=== PATIENT | female | born 1955 | race Caucasian/White ===

== ENCOUNTER 2017-12-07 09:00 | Outpatient (RCR) | payer OTHER, SELFPAY ==
--- NOTE | 2017-10-19 11:54 | PT.OTN ---
Current Diagnoses Pain in left knee (10/19/17) Trochanteric bursitis, left hip (10/19/17) Transition note: On October 18, 2017 our therapy services consisting of Speech, Occupational, and Physical Therapy transitioned from the [employer] electronic documentation system to a new [employer] electronic documentation system.?? All documentation prior to October 18 can be found under [employer] saved data. From October 18 forward all medical record documentation will be in [employer] 6.1.
--- NOTE | 2017-10-19 16:15 | PT.OTN ---
Current Diagnoses Pain in left knee (10/19/17) Trochanteric bursitis, left hip (10/19/17) Physical Therapy Treatment Note PT-OP-A Visit Information Start: 10/19/17 08:13 Freq: Status: Active Protocol: Activity Type Activity Date Activity User E-Sign Co-Sign Detail Recorded Client Recorded Date Recorded By Document 10/19/17 13:50 [place] [id number] 10/19/17 16:15 [facility] 10/19/17 13:50 Out-Patient Physical Therapy Visit Information [Visit Information] -Visit Type Treatment Note -Visit Note POC expires 06/06 -Visit Start Time 13:50 -Visit Stop Time 14:30 -Total Visit Minutes 55 PT-OP-C Subjective Start: 10/19/17 08:13 Freq: Status: Active Protocol: Activity Type Activity Date Activity User E-Sign Co-Sign Detail Recorded Client Recorded Date Recorded By Document 10/19/17 16:02 [facility] [email or web address] 10/19/17 16:13 [facility] 10/19/17 16:02 OP-PT Subjective [Patient Comments] -Patient Comments Reports improvement slightly. Has been working a lot. Extended time in car is painful. PT-OP-F Manual Assessment Start: 10/19/17 08:13 Freq: Status: Active Protocol: Activity Type Activity Date Activity User E-Sign Co-Sign Detail Recorded Client Recorded Date Recorded By Document 10/19/17 16:02 [facility] [email or web address] 10/19/17 16:13 [facility] 10/19/17 16:02 Manual Assessments [Other Manual Assessments] -Other Manual Assessments R iliac crest elevated & innominate posterior PT-OP-Q Treatments Start: 10/19/17 08:13 Freq: Status: Active Protocol: Activity Type Activity Date Activity User E-Sign Co-Sign Detail Recorded Client Recorded Date Recorded By Document 10/19/17 16:02 [facility] [email or web address] 10/19/17 16:13 [facility] 10/19/17 16:02 Therapeutic Exercises [Supine Exercises] 3 -Supine Exercise Name bicycle -Side bilateral 2 -Supine Exercise Name HS stretch -Side left 1 -Supine Exercise Name abraham test stretch -Side bilateral Therapeutic Activity [Therapeutic Activity] 1 -Name seated posture training & edu on positioning for car -Comments use of towel behind back & under L leg Manual Therapy Treatment [Soft Tissue Mobilization] 1 -Body Location QL -Mobilization Type Rolling -Intensity/Depth Moderate -Body Position Prone [Joint Mobilizations] 2 -Joint Innominate -Direction ER & caudal R -Grade III -Body Position Prone -Comments FM w/knee flex & trunk rotation 1 -Joint sacrum -Direction PA & caudal gliding -Grade III -Body Position Prone -Comments FM with knee flex & trunk rotation PT-OP-R Modalities Start: 10/19/17 08:13 Freq: Status: Active Protocol: Activity Type Activity Date Activity User E-Sign Co-Sign Detail Recorded Client Recorded Date Recorded By Document 10/19/17 13:50 [facility] [id number] 10/19/17 16:15 [facility] 10/19/17 13:50 Hot Pack/Cold Pack [Treatment] Cold Pack -Location L knee -Patient Position Hooklying -Treatment Duration (minutes) 15 Hot Pack -Location lumbar -Patient Position Hooklying -Treatment Duration (minutes) 15 PT-OP-T Assessment and Plan Start: 10/19/17 08:13 Freq: Status: Active Protocol: Activity Type Activity Date Activity User E-Sign Co-Sign Detail Recorded Client Recorded Date Recorded By Document 10/19/17 16:02 [facility] [id number] 10/19/17 16:13 [facility] 10/19/17 16:02 Physical Therapy Assessment [Assessment Summary] -Assessment Pt has significant tightness in hip/knee mm of LLE. Pt has difficulty in positioning in car d/t low height of seat. Pt cont to be rotated & elevated on R side. Physical Therapy Plan [Next Visit Focus/Plan] -Next Visit Plan Advance core stability
--- NOTE | 2017-10-21 16:07 | PT.OTN ---
Current Diagnoses Pain in left knee (10/21/17) Trochanteric bursitis, left hip (10/21/17) Physical Therapy Treatment Note PT-OP-A Visit Information Start: 10/19/17 08:13 Freq: Status: Active Protocol: Activity Type Activity Date Activity User E-Sign Co-Sign Detail Recorded Client Recorded Date Recorded By Document 10/21/17 15:54 [facility] [email or web address] 10/21/17 16:01 [facility] 10/21/17 15:54 Out-Patient Physical Therapy Visit Information [Visit Information] -Visit Type Treatment Note -Visit Note POC expires 06/06 -Visit Start Time 13:45 -Visit Stop Time 14:40 -Total Visit Minutes 55 PT-OP-C Subjective Start: 10/19/17 08:13 Freq: Status: Active Protocol: Activity Type Activity Date Activity User E-Sign Co-Sign Detail Recorded Client Recorded Date Recorded By Document 10/21/17 15:54 [facility] [email or web address] 10/21/17 16:01 [facility] 10/21/17 15:54 OP-PT Subjective [Patient Comments] -Patient Comments Reports she goes to her primary MD today. PT-OP-F Manual Assessment Start: 10/19/17 08:13 Freq: Status: Active Protocol: Activity Type Activity Date Activity User E-Sign Co-Sign Detail Recorded Client Recorded Date Recorded By Document 10/21/17 16:02 [facility] [email or web address] 10/21/17 16:06 [facility] 10/21/17 16:02 Manual Assessments [Other Manual Assessments] -Other Manual Assessments R pelvis elevated and ant rotated. PT-OP-Q Treatments Start: 10/19/17 08:13 Freq: Status: Active Protocol: Activity Type Activity Date Activity User E-Sign Co-Sign Detail Recorded Client Recorded Date Recorded By Document 10/21/17 16:02 [facility] [id number] 10/21/17 16:06 [facility] 10/21/17 16:02 Therapeutic Exercises [Supine Exercises] 4 -Supine Exercise Name bridge -Comments attempted alt knee lift but painful 2 -Supine Exercise Name HS stretch -Side left 1 -Supine Exercise Name abraham test stretch -Side bilateral [Standing Exercises] 1 -Standing Exercise Name calf stretch [Other Exercises] 1 -Other Exercise Name quadruped hip ext -Side bilateral -Comments stopped d/t knee clicking & poor form Manual Therapy Treatment [Soft Tissue Mobilization] 3 -Body Location HS L -Mobilization Type Rolling -Intensity/Depth Moderate -Body Position Sidelying 2 -Body Location gluteals L -Mobilization Type Rolling -Intensity/Depth Moderate -Body Position Sidelying [Joint Mobilizations] 3 -Joint patella -Direction sup, inf, med -Grade III -Body Position Sitting 2 -Joint Innominate -Direction caudal R -Grade III -Body Position Sidelying PT-OP-R Modalities Start: 10/19/17 08:13 Freq: Status: Active Protocol: Activity Type Activity Date Activity User E-Sign Co-Sign Detail Recorded Client Recorded Date Recorded By Document 10/21/17 16:02 [facility] [email or web address] 10/21/17 16:06 [facility] 10/21/17 16:02 Hot Pack/Cold Pack [Treatment] Cold Pack -Location B knee -Patient Position Hooklying -Treatment Duration (minutes) 15 Hot Pack -Location lumbar -Patient Position Hooklying -Treatment Duration (minutes) 15 PT-OP-T Assessment and Plan Start: 10/19/17 08:13 Freq: Status: Active Protocol: Activity Type Activity Date Activity User E-Sign Co-Sign Detail Recorded Client Recorded Date Recorded By Document 10/21/17 15:54 [facility] [id number] 10/21/17 16:01 [facility] 10/21/17 15:54 Physical Therapy Assessment [Assessment Summary] -Assessment While rolling to abdomen, pt' s R knee locked into ext. Pt reports that this happens occasionally for no reason with B knees. Unable to flex pt's knee until worked on patellar glides then a hard bump was palpable & with pressure disapeared. Pain subsided after & pt able to flex again. Overall, pt had inc tightness on L hip/knee mm. Physical Therapy Plan [Frequency and Duration] -Frequency of Treatment 2x/Week -Plan of Care End Date 11/29/17 [Next Visit Focus/Plan] -Next Visit Plan Advance core stability & quad strength; wall squats
--- NOTE | 2017-10-24 09:07 | PT.OTN ---
Current Diagnoses Pain in left knee (10/24/17) Trochanteric bursitis, left hip (10/24/17) Physical Therapy Treatment Note PT-OP-A Visit Information Start: 10/19/17 08:13 Freq: Status: Active Protocol: Activity Type Activity Date Activity User E-Sign Co-Sign Detail Recorded Client Recorded Date Recorded By Document 10/24/17 08:20 [facility] [id number] 10/24/17 09:07 [facility] 10/24/17 08:20 Out-Patient Physical Therapy Visit Information [Visit Information] -Visit Type Treatment Note -Visit Start Time 08:25 -Visit Stop Time 09:15 -Total Visit Minutes 50 -Number of LAB SYSTEMS ANALYST Visits 0 PT-OP-C Subjective Start: 10/19/17 08:13 Freq: Status: Active Protocol: Activity Type Activity Date Activity User E-Sign Co-Sign Detail Recorded Client Recorded Date Recorded By Document 10/24/17 08:20 [facility] [id number] 10/24/17 09:07 [facility] 10/24/17 08:20 OP-PT Subjective [Patient Comments] -Patient Comments Pt reports she was rushing to leave and slipped on her wood floors when going around her corner. Notes r SIDE IS SORE NOW TODAY. Reports MD gave her gabapentin to start for nerve pain. PT-OP-F Manual Assessment Start: 10/19/17 08:13 Freq: Status: Active Protocol: Activity Type Activity Date Activity User E-Sign Co-Sign Detail Recorded Client Recorded Date Recorded By Document 10/21/17 16:02 [facility] [email or web address] 10/21/17 16:06 [facility] 10/21/17 16:02 Manual Assessments [Other Manual Assessments] -Other Manual Assessments R pelvis elevated and ant rotated. PT-OP-Q Treatments Start: 10/19/17 08:13 Freq: Status: Active Protocol: Activity Type Activity Date Activity User E-Sign Co-Sign Detail Recorded Client Recorded Date Recorded By Document 10/24/17 08:20 [facility] [id number] 10/24/17 09:07 [facility] 10/24/17 08:20 Therapeutic Exercises [Sidelying Exercises] 1 -Sidelying Exercise Name abd vs wall [Standing Exercises] 2 -Standing Exercise Name wall squats Therapeutic Activity [Therapeutic Activity] 2 -Name lifting mechanics Manual Therapy Treatment [Soft Tissue Mobilization] 2 -Body Location gluteals L -Mobilization Type Rolling -Intensity/Depth Moderate -Body Position Prone 1 -Body Location QL -Mobilization Type Rolling -Intensity/Depth Moderate -Body Position Prone [Joint Mobilizations] 2 -Joint Innominate -Direction caudal R -Grade III -Body Position Prone 1 -Joint sacrum -Direction PA & caudal gliding -Grade III -Body Position Prone -Comments FM with knee flex & trunk rotation PT-OP-R Modalities Start: 10/19/17 08:13 Freq: Status: Active Protocol: Activity Type Activity Date Activity User E-Sign Co-Sign Detail Recorded Client Recorded Date Recorded By Document 10/24/17 08:20 [facility] [id number] 10/24/17 09:07 [facility] 10/24/17 08:20 Hot Pack/Cold Pack [Treatment] Cold Pack -Location B knee -Patient Position Hooklying -Treatment Duration (minutes) 15 Hot Pack -Location lumbar -Patient Position Hooklying -Treatment Duration (minutes) 15 PT-OP-T Assessment and Plan Start: 10/19/17 08:13 Freq: Status: Active Protocol: Activity Type Activity Date Activity User E-Sign Co-Sign Detail Recorded Client Recorded Date Recorded By Document 10/24/17 08:20 [facility] [id number] 10/24/17 09:07 [facility] 10/24/17 08:20 Physical Therapy Assessment [Assessment Summary] -Assessment Pt had inc tenderness along R gluteals & QL today and improved mobility with soft tissue mobilization. Pt encouraged to ice today. Physical Therapy Plan [Frequency and Duration] -Frequency of Treatment 2x/Week -Plan of Care End Date 11/29/17 [Next Visit Focus/Plan] -Next Visit Plan Advance glute & quad strength
--- NOTE | 2017-10-27 09:03 | PT.OTN ---
Current Diagnoses Pain in left knee (10/27/17) Trochanteric bursitis, left hip (10/27/17) Physical Therapy Treatment Note PT-OP-A Visit Information Start: 10/19/17 08:13 Freq: Status: Active Protocol: Document 10/27/17 08:13 [facility] (Rec: 10/27/17 09:03 [facility] [id number]) Out-Patient Physical Therapy Visit Information Visit Information Visit Type Treatment Note Visit Start Time 08:20 Visit Stop Time 09:15 Total Visit Minutes 55 Number of FLAKE DRIER Visits 0 PT-OP-C Subjective Start: 10/19/17 08:13 Freq: Status: Active Protocol: Document 10/27/17 08:13 [facility] (Rec: 10/27/17 09:03 [facility] [id number]) OP-PT Subjective Patient Comments Patient Comments Pt reports she is still a little sore from the fall and thinks she may have overdid her exercises. PT-OP-F Manual Assessment Start: 10/19/17 08:13 Freq: Status: Active Protocol: Document 10/21/17 16:02 [facility] (Rec: 10/21/17 16:06 [facility] [id number]) Manual Assessments Other Manual Assessments Other Manual Assessments R pelvis elevated and ant rotated. PT-OP-Q Treatments Start: 10/19/17 08:13 Freq: Status: Active Protocol: Document 10/27/17 08:13 [facility] (Rec: 10/27/17 09:03 [facility] [id number]) Therapeutic Exercises Supine Exercises 4 Supine Exercise Name bridge w/ alt march Reps/Minutes x15 Sidelying Exercises 1 Sidelying Exercise Name abd vs wall Reps/Minutes 10 (B) Standing Exercises 2 Standing Exercise Name wall squats Reps/Minutes 15x2 Comments w/tband 1 Standing Exercise Name calf stretch Manual Therapy Treatment Soft Tissue Mobilization 2 Body Location gluteals L Mobilization Type Rolling Intensity/Depth Moderate Body Position Prone 1 Body Location QL Mobilization Type Rolling Intensity/Depth Moderate Body Position Prone Joint Mobilizations 4 Joint patella Direction sup, inf, med Grade III Body Position Supine Comments B 2 Joint Innominate Direction caudal L Grade III Body Position Prone 1 Joint sacrum Direction PA & caudal gliding Grade III Body Position Prone Comments FM with knee flex & trunk rotation PT-OP-R Modalities Start: 10/19/17 08:13 Freq: Status: Active Protocol: Document 10/27/17 08:13 [facility] (Rec: 10/27/17 09:03 [facility] [id number]) Hot Pack/Cold Pack Treatment Cold Pack Location B knee Patient Position Hooklying Treatment Duration (minutes) 15 Hot Pack Location lumbar Patient Position Hooklying Treatment Duration (minutes) 15 PT-OP-T Assessment and Plan Start: 10/19/17 08:13 Freq: Status: Active Protocol: Document 10/27/17 08:13 [facility] (Rec: 10/27/17 09:03 [facility] [id number]) Physical Therapy Assessment Assessment Summary Assessment Pt required min cuieng with exercises and was able to tolerate marches with bridging without pain today. Tband required around knees & focus on core for wall squats. Physical Therapy Plan Frequency and Duration Frequency of Treatment 2x/Week Plan of Care End Date 11/29/17 Next Visit Focus/Plan Next Visit Plan cont to advance core & glute strength
--- NOTE | 2017-10-31 09:02 | PT.OTN ---
Current Diagnoses Pain in left knee (10/31/17) Trochanteric bursitis, left hip (10/31/17) Physical Therapy Treatment Note PT-OP-A Visit Information Start: 10/19/17 08:13 Freq: Status: Active Protocol: Document 10/31/17 08:16 [facility] (Rec: 10/31/17 09:01 [facility] [id number]) Out-Patient Physical Therapy Visit Information Visit Information Visit Type Treatment Note Visit Start Time 08:20 Visit Stop Time 09:15 Total Visit Minutes 55 Visit Number 7 Number of ACOUSTICAL INSTALLER Visits 0 PT-OP-C Subjective Start: 10/19/17 08:13 Freq: Status: Active Protocol: Document 10/31/17 08:16 [facility] (Rec: 10/31/17 09:01 [facility] [id number]) OP-PT Subjective Patient Comments Patient Comments Pt reports pain hasn't been too bad. Did exercises yesterday and most difficult was s.l abd. PT-OP-F Manual Assessment Start: 10/19/17 08:13 Freq: Status: Active Protocol: Document 10/21/17 16:02 [facility] (Rec: 10/21/17 16:06 [facility] [id number]) Manual Assessments Other Manual Assessments Other Manual Assessments R pelvis elevated and ant rotated. PT-OP-Q Treatments Start: 10/19/17 08:13 Freq: Status: Active Protocol: Document 10/31/17 08:16 [facility] (Rec: 10/31/17 09:01 [facility] [id number]) Therapeutic Exercises Supine Exercises 4 Supine Exercise Name bridge w/ alt march Reps/Minutes x15 Sidelying Exercises 3 Sidelying Exercise Name reverse clamshell B Reps/Minutes 15 B 2 Sidelying Exercise Name clamshell Resistance L1 Reps/Minutes 15 B 1 Sidelying Exercise Name abd vs wall Reps/Minutes 10 (B) x2 Standing Exercises 2 Standing Exercise Name wall squats Reps/Minutes 15x2 Comments w/tband Manual Therapy Treatment Soft Tissue Mobilization 2 Body Location gluteals B Mobilization Type Rolling Intensity/Depth Moderate Body Position Prone 1 Body Location QL Mobilization Type Rolling Intensity/Depth Moderate Body Position Prone Self-Care/Home Management Treatment Education Patient Education Home Exercise Program Other Education Reviewed HEP & added notes PT-OP-R Modalities Start: 10/19/17 08:13 Freq: Status: Active Protocol: Document 10/31/17 08:16 [facility] (Rec: 10/31/17 09:02 [facility] [id number]) Hot Pack/Cold Pack Treatment Cold Pack Location B knee Patient Position Hooklying Treatment Duration (minutes) 15 Hot Pack Location lumbar Patient Position Hooklying Treatment Duration (minutes) 15 PT-OP-T Assessment and Plan Start: 10/19/17 08:13 Freq: Status: Active Protocol: Document 10/31/17 08:16 [facility] (Rec: 10/31/17 09:01 [facility] [id number]) Physical Therapy Assessment Assessment Summary Assessment Pt was able to review exercises with some advancement of difficulty without pain. Min cueing & reminders needed with wall squats & s/l abd. Physical Therapy Plan Frequency and Duration Frequency of Treatment 2x/Week Plan of Care End Date 11/29/17 Next Visit Focus/Plan Next Visit Plan Cont to work on core & glute/ quad stability
--- NOTE | 2017-11-09 16:23 | PT.OTN ---
Current Diagnoses Pain in left knee (11/09/17) Trochanteric bursitis, left hip (11/09/17) Physical Therapy Treatment Note PT-OP-A Visit Information Start: 10/19/17 08:13 Freq: Status: Active Protocol: Document 11/09/17 13:46 [facility] (Rec: 11/09/17 14:28 [facility] [id number]) Out-Patient Physical Therapy Visit Information Visit Information Visit Type Progress Note Visit Start Time 13:55 Visit Stop Time 14:45 Total Visit Minutes 50 Visit Number 8 Number of HOT PLATE PLY[employer]OD PRESS OFFBEARER Visits 0 PT-OP-C Subjective Start: 10/19/17 08:13 Freq: Status: Active Protocol: Document 11/09/17 13:46 [facility] (Rec: 11/09/17 16:23 [facility] [id number]) OP-PT Subjective Patient Comments Patient Comments Pt reports pain has improved overall, but she has been less compliant w/HEP d/t being busy at work and getting ready to leave this Tuesday on vacation for a few weeks. Patient Reported Progress Improving Patient Questionnaires Lower Extremity Functional Scale LEFS Score 58 LEFS Impairment 20 to 39% Impaired (Score 48- 62) OP-PT Pain Assessment Location Left Hip Pain Location Details L hip & down LLE & B knees Intensity 4 Scale Used Numeric (1 - 10) PT-OP-F Manual Assessment Start: 10/19/17 08:13 Freq: Status: Active Protocol: Document 10/21/17 16:02 [facility] (Rec: 10/21/17 16:06 [facility] [id number]) Manual Assessments Other Manual Assessments Other Manual Assessments R pelvis elevated and ant rotated. PT-OP-J Posture/Palpation/Skin Start: 11/09/17 16:10 Freq: Status: Active Protocol: Document 11/09/17 13:46 [facility] (Rec: 11/09/17 16:23 [facility] [id number]) Posture Evaluation Camryn Postural Classification System Vertebral Compression Test 3 Lumbar Protective Mechanism Left AP 3 Lumbar Protective Mechanism Right AP 3 Lumbar Protective Mechanism Left PA 3 Lumbar Protective Mechanism Right PA 3 PT-OP-M Strength Start: 10/19/17 08:13 Freq: Status: Active Protocol: Document 11/09/17 13:46 [facility] (Rec: 11/09/17 16:23 [facility] [id number]) Hip Strength Hip Manual Muscle Testing Right Flexion (L2) 4+ Good+ Extension (S1) 4 Good Abduction 4+ Good+ External Rotation 4+ Good+ Internal Rotation 4+ Good+ Left Flexion (L2) 4+ Good+ Extension (S1) 4 Good Abduction 4+ Good+ External Rotation 4+ Good+ Internal Rotation 4+ Good+ Knee Strength Knee Manual Muscle Testing Right Flexion (S2) 5 Normal Extension (L3) 4 Good Comments pain w/ext Left Flexion (S2) 5 Normal Extension (L3) 5 Normal PT-OP-Q Treatments Start: 10/19/17 08:13 Freq: Status: Active Protocol: Document 11/09/17 13:46 [facility] (Rec: 11/09/17 16:23 [facility] [id number]) Therapeutic Exercises Sitting Exercises 1 Sitting Exercise Name seated stretching regimine for airplane ride Comments per chart Manual Therapy Treatment Soft Tissue Mobilization 2 Body Location gluteals B Mobilization Type Rolling Intensity/Depth Moderate Body Position Prone 1 Body Location QL Mobilization Type Rolling Intensity/Depth Moderate Body Position Prone Joint Mobilizations 2 Joint Innominate Direction caudal L Grade III Body Position Prone 1 Joint sacrum Direction PA & caudal gliding Grade III Body Position Prone Comments FM with knee flex & trunk rotation PT-OP-R Modalities Start: 10/19/17 08:13 Freq: Status: Active Protocol: Document 11/09/17 13:46 [facility] (Rec: 11/09/17 16:23 [facility] [id number]) Hot Pack/Cold Pack Treatment Cold Pack Location B knee Patient Position Hooklying Treatment Duration (minutes) 15 Hot Pack Location lumbar Patient Position Hooklying Treatment Duration (minutes) 15 PT-OP-T Assessment and Plan Start: 10/19/17 08:13 Freq: Status: Active Protocol: Document 11/09/17 13:46 [facility] (Rec: 11/09/17 14:28 [facility] [id number]) Physical Therapy Assessment Impairments Impairments Balance Functional Activities Gait Pain Posture Soft Tissue Mobility Strength Goals Seven Impairment gait Short Term Goal (STG) Improved gait mechanics to normal STG Duration by 12/17/17 Six Impairment core stability Insurance Biller Goal (LTG) Improved core stability w/ LPM & VCT 5/5 LTG Duration by 01/09/18 (improving 3/5) Five Impairment MMT Insurance Biller Goal (LTG) 5/5 to rturn to hiking LTG Duration bu 01/09/18-good progress Four Impairment aggravating factors Short Term Goal (STG) Pt will have no difficulty sleeping STG Duration achieved Nursing Home Goal (LTG) Pt will be able to do all normal daily activities without pain LTG Duration by 01/09/18 Three Impairment pain at worst 8/10 Short Term Goal (STG) to 5/10 STG Duration achieved (4/10) Nursing Home Goal (LTG) to 1/10 LTG Duration by 01/09/18 Two Impairment dec walks/hikes Short Term Goal (STG) indep HEP STG Duration achieved-cont to advance Nursing Home Goal (LTG) Pt will return to normal hiking & walking LTG Duration by 01/09/18-improving One Impairment LEFS Short Term Goal (STG) 55/80 STG Duration achieved Insurance Biller Goal (LTG) 65/80 LTG Duration by 01/09/18 Progress Towards Goals Progress Towards Goals Progressing Toward Goals Assessment Summary Assessment Pt is making good progress with pain and return to activities, but cont to be limited from performing her higher level activties like hiking and long walks. Physical Therapy Plan Frequency and Duration Frequency of Treatment 1-2x/week Duration of Treatment 2 months Plan of Care End Date 01/09/18 Therapeutic Interventions Therapeutic Interventions Aquatic Therapy Balance Training Gait Training Home Exercise Program Joint Mobilizations Manual Therapy Neuromuscular Re-education Soft Tissue Mobilization Therapeutic Exercises Modalities Cold Pack/Ice Massage Electric Stimulation Hot Packs Ultrasound Next Visit Focus/Plan Next Visit Plan Cont to work on core & glute/ quad stability Please Sign and Return: I have reviewed this Plan of Care and certify that the skilled therapy services above are required to meet the patient???s needs. Physician Signature Date Printed Name and Credentials Clinical Instructor Signature Printed Name and Credentials
--- NOTE | 2017-11-09 16:23 | PT.OPPOC ---
Current Diagnoses Pain in left knee (11/09/17) Trochanteric bursitis, left hip (11/09/17) Provider Visit Care Team Role Provider Type Vicky Chavez PA-C Attending Provider Advanced Practioner Clinician Family Provider Primary Care Provider Specialty: Internal Medicine Address: [address] [place] [address], [phone] Email: Plan Of Care PT-OP-T Assessment and Plan Start: 10/19/17 08:13 Freq: Status: Active Protocol: Document 11/09/17 13:46 [facility] (Rec: 11/09/17 14:28 [facility] [id number]) Physical Therapy Assessment Impairments Impairments Balance Functional Activities Gait Pain Posture Soft Tissue Mobility Strength Goals Seven Impairment gait Short Term Goal (STG) Improved gait mechanics to normal STG Duration by 12/17/17 Six Impairment core stability Technology Coordinator Goal (LTG) Improved core stability w/ LPM & VCT 5/5 LTG Duration by 01/09/18 (improving 3/5) Five Impairment MMT Technology Coordinator Goal (LTG) 5/5 to rturn to hiking LTG Duration bu 01/09/18-good progress Four Impairment aggravating factors Short Term Goal (STG) Pt will have no difficulty sleeping STG Duration achieved Technology Coordinator Goal (LTG) Pt will be able to do all normal daily activities without pain LTG Duration by 01/09/18 Three Impairment pain at worst 8/10 Short Term Goal (STG) to 5/10 STG Duration achieved (4/10) Technology Coordinator Goal (LTG) to 1/10 LTG Duration by 01/09/18 Two Impairment dec walks/hikes Short Term Goal (STG) indep HEP STG Duration achieved-cont to advance Retirement Goal (LTG) Pt will return to normal hiking & walking LTG Duration by 01/09/18-improving One Impairment LEFS Short Term Goal (STG) 55/80 STG Duration achieved Retirement Goal (LTG) 65/80 LTG Duration by 01/09/18 Progress Towards Goals Progress Towards Goals Progressing Toward Goals Assessment Summary Assessment Pt is making good progress with pain and return to activities, but cont to be limited from performing her higher level activties like hiking and long walks. Physical Therapy Plan Frequency and Duration Frequency of Treatment 1-2x/week Duration of Treatment 2 months Plan of Care End Date 01/09/18 Therapeutic Interventions Therapeutic Interventions Aquatic Therapy Balance Training Gait Training Home Exercise Program Joint Mobilizations Manual Therapy Neuromuscular Re-education Soft Tissue Mobilization Therapeutic Exercises Modalities Cold Pack/Ice Massage Electric Stimulation Hot Packs Ultrasound Next Visit Focus/Plan Next Visit Plan Cont to work on core & glute/ quad stability Plan of Care Dates Plan of Care End Date 01/09/18 Please Sign and Return: I have reviewed this Plan of Care and certify that the skilled therapy services above are required to meet the patient???s needs. Physician Signature Date Printed Name and Credentials Clinical Instructor Signature Printed Name and Credentials
--- NOTE | 2017-12-07 09:46 | PT.OTN ---
Current Diagnoses Pain in left knee (12/07/17) Trochanteric bursitis, left hip (12/07/17) Physical Therapy Treatment Note PT-OP-A Visit Information Start: 10/19/17 08:13 Freq: Status: Active Protocol: Document 12/07/17 08:59 [facility] (Rec: 12/07/17 09:46 [facility] [id number]) Out-Patient Physical Therapy Visit Information Visit Information Visit Type Treatment Note Visit Start Time 09:00 Visit Stop Time 10:00 Total Visit Minutes 60 Visit Number 9 Number of REFINING ENGINEER Visits 0 PT-OP-C Subjective Start: 10/19/17 08:13 Freq: Status: Active Protocol: Document 12/07/17 08:59 [facility] (Rec: 12/07/17 09:46 [facility] [id number]) OP-PT Subjective Patient Comments Patient Comments Non compliance with HEP except stretching. Inc pain into L hip and down LE into foot. PT-OP-F Manual Assessment Start: 10/19/17 08:13 Freq: Status: Active Protocol: Document 10/21/17 16:02 [facility] (Rec: 10/21/17 16:06 [facility] [id number]) Manual Assessments Other Manual Assessments Other Manual Assessments R pelvis elevated and ant rotated. PT-OP-J Posture/Palpation/Skin Start: 11/09/17 16:10 Freq: Status: Active Protocol: Document 11/09/17 13:46 [facility] (Rec: 11/09/17 16:23 [facility] [id number]) Posture Evaluation Camryn Postural Classification System Vertebral Compression Test 3 Lumbar Protective Mechanism Left AP 3 Lumbar Protective Mechanism Right AP 3 Lumbar Protective Mechanism Left PA 3 Lumbar Protective Mechanism Right PA 3 PT-OP-M Strength Start: 10/19/17 08:13 Freq: Status: Active Protocol: Document 11/09/17 13:46 [facility] (Rec: 11/09/17 16:23 [facility] [id number]) Hip Strength Hip Manual Muscle Testing Right Flexion (L2) 4+ Good+ Extension (S1) 4 Good Abduction 4+ Good+ External Rotation 4+ Good+ Internal Rotation 4+ Good+ Left Flexion (L2) 4+ Good+ Extension (S1) 4 Good Abduction 4+ Good+ External Rotation 4+ Good+ Internal Rotation 4+ Good+ Knee Strength Knee Manual Muscle Testing Right Flexion (S2) 5 Normal Extension (L3) 4 Good Comments pain w/ext Left Flexion (S2) 5 Normal Extension (L3) 5 Normal PT-OP-Q Treatments Start: 10/19/17 08:13 Freq: Status: Active Protocol: Document 12/07/17 08:59 [facility] (Rec: 12/07/17 09:46 [facility] [id number]) Therapeutic Exercises Supine Exercises 5 Supine Exercise Name abdominal series-flex B Reps/Minutes 30 sec hold 4 Supine Exercise Name bridge w/ alt march Reps/Minutes 10 3 Supine Exercise Name piriformis stretch Reps/Minutes 30 sec each 2 Supine Exercise Name HS Reps/Minutes 30 sec holds 1 Supine Exercise Name Clark test stretch Reps/Minutes 30 sec holds Sidelying Exercises 3 Sidelying Exercise Name reverse clamshell B Equipment Used L1 Reps/Minutes 15 B 2 Sidelying Exercise Name clamshell Resistance L1 Reps/Minutes 15 B 1 Sidelying Exercise Name abd Reps/Minutes 10 Standing Exercises 2 Standing Exercise Name wall squats Reps/Minutes 15x2 Comments w/tband 1 Standing Exercise Name calf stretch Reps/Minutes 30 sec Manual Therapy Treatment Soft Tissue Mobilization 2 Body Location gluteals B Mobilization Type Rolling Intensity/Depth Moderate Body Position Prone 1 Body Location QL Mobilization Type Rolling Intensity/Depth Moderate Body Position Prone Joint Mobilizations 3 Joint hip on axis ER Direction FM L 2 Joint Innominate Direction caudal L Grade III Body Position Prone 1 Joint sacrum Direction PA & caudal gliding Grade III Body Position Prone Comments FM with knee flex & trunk rotation PT-OP-R Modalities Start: 10/19/17 08:13 Freq: Status: Active Protocol: Document 12/07/17 08:59 [facility] (Rec: 12/07/17 09:46 [facility] [id number]) Hot Pack/Cold Pack Treatment Cold Pack Location B knee Patient Position Hooklying Treatment Duration (minutes) 15 Hot Pack Location lumbar Patient Position Hooklying Treatment Duration (minutes) 15 PT-OP-T Assessment and Plan Start: 10/19/17 08:13 Freq: Status: Active Protocol: Document 12/07/17 08:59 [facility] (Rec: 12/07/17 09:46 [facility] [id number]) Physical Therapy Assessment Goals Seven Impairment gait Short Term Goal (STG) Improved gait mechanics to normal STG Duration by 12/17/17 Six Impairment core stability Fpc Goal (LTG) Improved core stability w/ LPM & VCT 5/5 LTG Duration by 01/09/18 (improving 3/5) Five Impairment MMT Senior Grant Writer Goal (LTG) 5/5 to rturn to hiking LTG Duration bu 01/09/18-good progress Four Impairment aggravating factors Short Term Goal (STG) Pt will have no difficulty sleeping STG Duration achieved Fpc Goal (LTG) Pt will be able to do all normal daily activities without pain LTG Duration by 01/09/18 Three Impairment pain at worst 8/10 Short Term Goal (STG) to 5/10 STG Duration achieved (4/10) Fpc Goal (LTG) to 1/10 LTG Duration by 01/09/18 Two Impairment dec walks/hikes Short Term Goal (STG) indep HEP STG Duration achieved-cont to advance Fpc Goal (LTG) Pt will return to normal hiking & walking LTG Duration by 01/09/18-improving One Impairment LEFS Short Term Goal (STG) 55/80 STG Duration achieved Fpc Goal (LTG) 65/80 LTG Duration by 01/09/18 Assessment Summary Assessment Pt has inc tightness in lumbar & gluteals today. Min cueing required for form & staying in painfree range. Physical Therapy Plan Frequency and Duration Frequency of Treatment 1-2x/week Duration of Treatment 2 months Plan of Care End Date 01/09/18 Next Visit Focus/Plan Next Note Type Treatment Note Next Visit Plan Cont to work on core & glute/ quad stability & soft tissue mobility of glute & QL
--- NOTE | 2018-01-25 08:45 | PT.OPDS ---
Current Diagnoses Pain in left knee (12/07/17) Trochanteric bursitis, left hip (12/07/17) Provider Visit Care Team Role Provider Type Vicky Chavez PA-C Attending Provider Advanced Hydro Plant Operator Family Provider Primary Care Provider Specialty: Internal Medicine Address: [address] [place] [address] Email: Visit Number Visit Number 9 Discharge Summary PT-OP-C Subjective Start: 10/19/17 08:13 Freq: Status: Active Protocol: Document 12/07/17 08:59 [facility] (Rec: 12/07/17 09:46 [facility] [id number]) OP-PT Subjective Patient Comments Patient Comments Non compliance with HEP except stretching. Inc pain into L hip and down LE into foot. PT-OP-F Manual Assessment Start: 10/19/17 08:13 Freq: Status: Active Protocol: Document 10/21/17 16:02 [facility] (Rec: 10/21/17 16:06 [facility] [id number]) Manual Assessments Other Manual Assessments Other Manual Assessments R pelvis elevated and ant rotated. PT-OP-J Posture/Palpation/Skin Start: 11/09/17 16:10 Freq: Status: Active Protocol: Document 11/09/17 13:46 [facility] (Rec: 11/09/17 16:23 [facility] [id number]) Posture Evaluation [facility] Postural Classification System Vertebral Compression Test 3 Lumbar Protective Mechanism Left AP 3 Lumbar Protective Mechanism Right AP 3 Lumbar Protective Mechanism Left PA 3 Lumbar Protective Mechanism Right PA 3 PT-OP-M Strength Start: 10/19/17 08:13 Freq: Status: Active Protocol: Document 11/09/17 13:46 [facility] (Rec: 11/09/17 16:23 [facility] [id number]) Hip Strength Hip Manual Muscle Testing Right Flexion (L2) 4+ Good+ Extension (S1) 4 Good Abduction 4+ Good+ External Rotation 4+ Good+ Internal Rotation 4+ Good+ Left Flexion (L2) 4+ Good+ Extension (S1) 4 Good Abduction 4+ Good+ External Rotation 4+ Good+ Internal Rotation 4+ Good+ Knee Strength Knee Manual Muscle Testing Right Flexion (S2) 5 Normal Extension (L3) 4 Good Comments pain w/ext Left Flexion (S2) 5 Normal Extension (L3) 5 Normal PT-OP-T Assessment and Plan Start: 10/19/17 08:13 Freq: Status: Active Protocol: Document 01/25/18 08:44 [facility] (Rec: 01/25/18 08:45 [facility] [id number]) Physical Therapy Plan Discharge Physical Therapy Discharge Reasons No Longer Attending PT Discharge Comments Pt cancelled last remaining visits and has been called back to discuss scheduling, but pt did not return this call. D/C pt at this time.
== END 2018-01-26 12:29 ==
LOC: PHYS 09:00
PROVIDERS: Family Provider Physician Assistant; PCP Physician Assistant; Visit Provider Physician Assistant
DX: M70.62 Trochanteric bursitis, left hip (principal); M25.562 Pain in left knee
CPT/HCPCS: 97010; 97110; 97140; 97530

== ENCOUNTER → 2018-04-06 11:12 | Outpatient (CLI) | payer OTHER, SELFPAY ==
[2018-04-06 12:37] LABS: Alanine Aminotransferase 45 IU/L (9-52); Albumin 4.4 g/dL (3.5-5.0); Albumin Globulin Ratio 1.6 (1.0-2.8); Alkaline Phosphatase 98 U/L (38-126); Aspartate Aminotransferase 28 IU/L (14-36); BUN Creatinine Ratio 21.3 (6-22); Bilirubin Total 0.7 mg/dL (0.2-1.3); Blood Urea Nitrogen 17 mg/dL (7-17); Calcium 9.5 mg/dL (8.4-10.2); Carbon Dioxide 28 mmol/L (22-32); Chloride 105 mmol/L (98-107); Cholesterol 189 mg/dL (140-199); Estimated Glomerular Filt Rate > 60.0 mL/min (>60); Globulin 2.7 g/dL (1.7-4.1); Glucose 83 mg/dL (80-110); HDL Cholesterol 57 mg/dL (40-60); HEMOLYSIS < 15 (0-50); LDL Cholesterol Calculated 112 mg/dL (<100); Potassium 4.3 mmol/L (3.4-5.1); Sodium 144 mmol/L (137-145); Total Protein 7.1 g/dL (6.3-8.2); Triglycerides 98 mg/dL (35-150)
== END ==
PROVIDERS: PCP Physician Assistant; Visit Provider Physician Assistant
DX: E78.5 Hyperlipidemia, unspecified (principal)
CPT/HCPCS: 36415; 80053; 80061

== ENCOUNTER → 2018-08-29 10:15 | Outpatient (CLI) | payer OTHER, SELFPAY ==
--- NOTE | 2018-08-29 | DI.RAD.S_ITS ---
PROCEDURE: XR RIBS LT MIN 3V W CXR1V INDICATIONS: LEFT RIB PAIN TECHNIQUE: 2 views of the left ribs were acquired, along with a single view chest. COMPARISON: [facility], , CHEST 1 VIEW, 09/13/2007, 16:17. FINDINGS: Surgical changes and devices: None. Bones and chest wall: No fractures or dislocations. No suspicious bony lesions. Overlying soft tissues appear unremarkable. Lungs and pleura: No pleural effusions or pneumothorax. Lungs appear clear. Mediastinum: Mediastinal contours appear normal. Heart size is normal. IMPRESSION: No radiographically visible rib fracture. No acute disease. Dictated by: Naveen Coates M.D. on 08/29/2018 at 11:41 Approved by: Naveen Coates M.D. on 08/29/2018 at 11:44
== END ==
PROVIDERS: Family Provider Physician Assistant; PCP Physician Assistant; Visit Provider Physician Assistant
DX: R07.82 Intercostal pain (principal); M54.6 Pain in thoracic spine
CPT/HCPCS: 71101

== ENCOUNTER → 2019-06-06 18:24 | Outpatient (ROUT) | payer OTHER, SELFPAY ==
[2019-06-06 18:55] LABS: Add Manual Diff / Slide Review NO; Basophils Absolute Auto 0 /uL (0-100); Basophils Percent Auto 0.4 % (0-2); Eosinophils Absolute Auto 0 /uL (0-450); Eosinophils Percent Auto 0.4 % (2-4); Hematocrit 41.6 % (36-46); Hemoglobin 14.2 g/dL (12.0-16.0); Lymphocytes Absolute Auto 1200 /uL (1100-4500); Lymphocytes Percent Auto 18.2 % (25-40); Mean Corpuscular HGB Conc 34.2 % (30-36); Mean Corpuscular Hemoglobin 27.8 PG (26-34); Mean Corpuscular Volume 81.3 fL (80-100); Monocytes Absolute Auto 600 /uL (0-900); Monocytes Percent Auto 8.8 % (3-14); Neutrophils Absolute Auto 4900 /uL (1500-7000); Neutrophils Percent Auto 72.2 % (50-75); Platelet Count 305 X10^3/uL (150-400); Red Blood Cell Count 5.11 X10^6/uL (4.0-5.2); Red Cell Distribution Width 13.6 % (11.6-14.8); White Blood Cell Count 6.8 X10^3/uL (4.5-11.0)
[2019-06-06 19:00] LABS: Alanine Aminotransferase 21 IU/L (<35); Albumin 4.4 g/dL (3.5-5.0); Albumin Globulin Ratio 1.6 (1.0-2.8); Alkaline Phosphatase 105 U/L (38-126); Amylase 66 U/L (30-110); Aspartate Aminotransferase 25 IU/L (14-36); BUN Creatinine Ratio 17.8 (6-22); Bilirubin Total 0.7 mg/dL (0.2-1.3); Blood Urea Nitrogen 16 mg/dL (7-17); Calcium 9.8 mg/dL (8.4-10.2); Carbon Dioxide 29 mmol/L (22-32); Chloride 104 mmol/L (98-107); Estimated Glomerular Filt Rate > 60.0 mL/min (>60); Globulin 2.7 g/dL (1.7-4.1); Glucose 89 mg/dL (80-110); HEMOLYSIS < 15 (0-50); Lipase 73 U/L (23-300); Potassium 4.1 mmol/L (3.4-5.1); Sodium 141 mmol/L (137-145); Total Protein 7.1 g/dL (6.3-8.2)
== END ==
PROVIDERS: Family Provider Physician Assistant; PCP Physician Assistant; Visit Provider Internal Medicine
DX: R10.9 Unspecified abdominal pain (principal)
CPT/HCPCS: 80053; 82150; 83690; 85025

== ENCOUNTER → 2019-06-26 19:04 | Outpatient (ROUT) | payer OTHER, SELFPAY ==
[2019-06-26 19:07] LABS: Bacteria Urine None Seen; RBC Urine None Seen (0-5/HPF); WBC Urine None Seen (0-5/HPF)
[2019-06-26 19:12] LABS: Appearance Urine UA CLEAR; Bilirubin Urine UA NEGATIVE (NEGATIVE); Color Urine UA YELLOW; Glucose Urine UA NEGATIVE (Negative); Ketones Urine UA NEGATIVE (NEGATIVE); Leukocyte Esterase Urine UA NEGATIVE (NEGATIVE); Nitrite Urine UA NEGATIVE (Negative); Occult Blood Urine UA NEGATIVE (Negative); Protein Urine UA NEGATIVE (Negative); Specific Gravity Urine UA 1.015 (1.000-1.035); Urobilinogen Urine UA 0.2 E.U./dL (0.2)
[2019-06-26 19:17] LABS: Cholesterol 202 mg/dL (140-199); HDL Cholesterol 54 mg/dL (40-60); LDL Cholesterol Calculated 126 mg/dL (<100); Triglycerides 112 mg/dL (35-150)
[2019-06-26 19:25] LABS: Calcium Oxalate Crystals Urine Occasional; Culture Indicated Urine Cult Not Indicated; pH Urine UA 5.5 (4.5-8.0)
[2019-06-26 19:59] LABS: HIV 1 & 2 Ab/Ag 4th Gen Combo NEGATIVE (NEGATIVE)
[2019-06-26 20:38] LABS: Urine N gonorrhoeae NOT DETECTED
[2019-06-26 20:45] LABS: Urine Chlamydia NOT DETECTED
== END ==
PROVIDERS: Family Provider Physician Assistant; PCP Physician Assistant; Visit Provider Physician Assistant
DX: Z11.4 Encounter for screening for human immunodeficiency virus [HIV] (principal); E78.00 Pure hypercholesterolemia, unspecified; Z20.2 Contact with and (suspected) exposure to infections with a predominantly sexual mode of transmission
CPT/HCPCS: 80061; 81001; 87389; 87491; 87591

== ENCOUNTER → 2019-07-02 11:05 | Outpatient (CLI) | payer OTHER, SELFPAY ==
--- NOTE | 2019-07-02 | DI.US.S_ITS ---
PROCEDURE: US ABDOMEN COMPLETE INDICATIONS: DIARRHEA, BLOATING, UNSPESIFIED TECHNIQUE: Real-time scanning was performed of the abdominal and retroperitoneal organs, with image documentation. COMPARISON: [facility], CT, ABDOMEN/PELVIS WITH CONTRAST, 12/08/2012, 16:23. FINDINGS: Liver: Normal in size. Increased echogenicity. Gallbladder: Nondilated. No stones or sludge. Normal gallbladder wall thickness. No pericholecystic fluid. Negative sonographic Braxton's sign. Biliary ducts: Intrahepatic bile ducts are non-dilated. Extrahepatic bile duct caliber measures 7 mm. Normal is 6-7 mm or less in diameter, or 10 mm or less post-cholecystectomy. Pancreas: Visualized portions of the pancreas are sonographically normal. Spleen: Spleen is normal in size and homogeneous in echotexture. Kidneys: Kidneys are normal in size and echotexture. Right kidney measures 9.8 cm long; left kidney measures 9.6 cm long. No hydronephrosis or nephrolithiasis. No solid masses. Aorta: Visualized aorta is normal in caliber at less than 3 cm. Iliacs: Proximal common iliac arteries are normal in caliber at less than 2.5 cm. IVC: Intrahepatic inferior vena cava is patent. Miscellaneous: No free abdominal fluid. IMPRESSION: 1. Increased hepatic echogenicity most consistent with hepatic steatosis. Other forms of hepatocellular disease could have similar appearance. 2. No gallstones. 3. No free fluid. Dictated by: Vidal Milan M.D. on 07/02/2019 at 21:18 Approved by: Vidal Milan M.D. on 07/02/2019 at 21:20
== END ==
PROVIDERS: Family Provider Physician Assistant; PCP Physician Assistant; Visit Provider Physician Assistant
DX: R19.7 Diarrhea, unspecified (principal); R14.0 Abdominal distension (gaseous); R10.30 Lower abdominal pain, unspecified
CPT/HCPCS: 76700

== ENCOUNTER → 2019-07-11 12:09 | Outpatient (CLI) | payer OTHER, SELFPAY ==
--- NOTE | 2019-07-11 | DI.MG.S_ITS ---
BILATERAL DIGITAL SCREENING MAMMOGRAM 3D/2D WITH CAD: 07/11/2019 CLINICAL: Routine screening. Family history of breast cancer. Comparison is made to exams dated: 10/17/2017 mammogram, 07/28/2016 mammogram, and 02/13/2015 mammogram - [facility]. The tissue of both breasts is extremely dense, which lowers the sensitivity of mammography. Current study was also evaluated with a Computer Aided Detection (CAD) system. No significant masses, calcifications, or other findings are seen in either breast. There has been no significant interval change. IMPRESSION: NEGATIVE There is no mammographic evidence of malignancy. A 1 year screening mammogram is recommended. This exam was interpreted at Station ID: [id number]. NOTE: For mammograms, a report in lay terms will be sent to the patient. Approximately 15% of breast malignancies will not be visualized mammographically. In the management of a palpable breast mass, a negative mammogram must not discourage biopsy of a clinically suspicious lesion. Electronically Signed By: Marley owen/noel:07/11/2019 16:36:37 letter sent: Normal Exam ACR BI-RADS Category 1: Negative [id number]
== END ==
PROVIDERS: PCP Physician Assistant; Visit Provider Physician Assistant
DX: Z12.31 Encounter for screening mammogram for malignant neoplasm of breast (principal); Z80.3 Family history of malignant neoplasm of breast; M81.0 Age-related osteoporosis without current pathological fracture; Z78.0 Asymptomatic menopausal state; K92.9 Disease of digestive system, unspecified
CPT/HCPCS: 77063; 77067; 77080

== ENCOUNTER → 2019-08-06 14:25 | Outpatient (CLI) | payer OTHER, SELFPAY ==
--- NOTE | 2019-08-06 | DI.CT.S_ITS ---
PROCEDURE: CT ABDOMEN PELVIS W CON INDICATIONS: LOWER ABDOMINAL PAIN TECHNIQUE: After the administration of oral and intravenous contrast, 5 mm thick sections acquired from the diaphragms to the symphysis. 5 mm thick coronal and sagittal reformats were performed. For radiation dose reduction, the following was used: automated exposure control, adjustment of mA and/or kV according to patient size. COMPARISON: [facility], CT, ABDOMEN/PELVIS WITH CONTRAST, 12/08/2012, 16:23. FINDINGS: Image quality: Excellent. ABDOMEN: Lung bases: Lung bases are clear. Heart size is normal. Solid organs: Liver is normal in size and enhancement. Gallbladder unremarkable. Biliary system is non-dilated. Pancreas enhances normally. Spleen is normal in size and enhancement. No adrenal nodules. Kidneys are normal in size and enhancement, without hydronephrosis. Peritoneum and bowel: Stomach, small bowel, and colon loops are normal in caliber and wall thickness. No free fluid or air. Normal appendix. Nodes and vessels: No retroperitoneal or mesenteric adenopathy. Aorta and inferior vena cava are normal in caliber. Miscellaneous: No ventral hernias. PELVIS: Genitourinary: Bladder wall thickness is normal. Mildly heterogeneous appearance of uterus although technically nonspecific and less conspicuous since prior study dated 12/08/12. This could be further assessed with dedicated ultrasound as clinically warranted. Ovaries grossly unremarkable. Miscellaneous: No inguinal hernias or adenopathy. Bones: No suspicious bony lesions. No vertebral body compression fractures. Diffuse spondylosis. IMPRESSION: Overall, no acute abnormality identified. Mildly heterogeneous appearance of the uterus, potentially related to fibroids although technically nonspecific and dedicated pelvic ultrasound could further characterize as clinically necessary. No specific evidence of neoplasm or focal mass lesion identified. No pathologically enlarged lymphadenopathy seen. Normal appearance of the appendix No evidence of bowel obstruction. Dictated by: Naveen Coates M.D. on 08/06/2019 at 17:09 Approved by: Naveen Coates M.D. on 08/06/2019 at 17:16
[2019-08-06 15:20] LABS: Alanine Aminotransferase 31 IU/L (<35); Albumin 4.4 g/dL (3.5-5.0); Albumin Globulin Ratio 1.4 (1.0-2.8); Alkaline Phosphatase 123 U/L (38-126); Aspartate Aminotransferase 34 IU/L (14-36); Bilirubin Total 0.5 mg/dL (0.2-1.3); Blood Urea Nitrogen 14 mg/dL (7-17); Calcium 9.4 mg/dL (8.4-10.2); Carbon Dioxide 26 mmol/L (22-32); Chloride 106 mmol/L (98-107); Estimated Glomerular Filt Rate > 60.0 mL/min (>60); Globulin 3.2 g/dL (1.7-4.1); Glucose 92 mg/dL (80-110); HEMOLYSIS < 15 (0-50); Potassium 4.1 mmol/L (3.4-5.1); Sodium 141 mmol/L (137-145); Total Protein 7.6 g/dL (6.3-8.2)
== END ==
PROVIDERS: PCP Physician Assistant; Referring Provider Physician Assistant; Visit Provider Physician Assistant
DX: Z01.812 Encounter for preprocedural laboratory examination (principal); R10.30 Lower abdominal pain, unspecified
CPT/HCPCS: 36415; 74177; 80053; Q9967

== ENCOUNTER → 2019-08-14 09:53 | Outpatient (CLI) | payer OTHER, SELFPAY ==
--- NOTE | 2019-08-14 | DI.US.S_ITS ---
PROCEDURE: US PELVIC COMPLETE INDICATIONS: ABNORMAL CT TECHNIQUE: Real-time scanning was performed of the pelvic organs, with image documentation. Additional endovaginal scanning was necessary due to incomplete visualization of the adnexal and endometrial structures by transabdominal scanning. COMPARISON: [facility], CT, CT ABDOMEN PELVIS W CON, 08/06/2019, 15:52. [facility], US, PELVIC COMPLETE, 01/08/2013, 11:56. FINDINGS: Transabdominal scanning: Limited scanning through the kidneys shows no hydronephrosis. No pathologic free abdominal or pelvic fluid. Endovaginal scanning: Uterus: Uterus is normal in size at 6.5 x 4.4 x 4.6 cm. The endometrium measures 2-3 mm in combined thickness. Hypoechoic uterine lesions are seen, which are attributed to fibroids. They measure as follows: Right anterior uterus, intramural, 2 x 1.9 x 1.6 cm Right anterior uterus, intramural, 1.9 x 1.7 x 1.8 cm Left anterior uterus, intramural, 2 x 2 x 2.1 cm Left anterior uterus, intramural, 1.5 x 1.5 x 1.8 cm Ovaries: The right ovary measures 1.9 x 0.6 x 0.7 cm. The left ovary measures 1.6 x 0.6 x 0.7 cm. The ovaries have a normal sonographic appearance. No adnexal masses are seen. IMPRESSION: Uterine fibroids are seen. Dictated by: Marvin Cordova M.D. on 08/14/2019 at 11:23 Approved by: Marvin Cordova M.D. on 08/14/2019 at 11:26
== END ==
PROVIDERS: PCP Physician Assistant; Referring Provider Physician Assistant; Visit Provider Physician Assistant
DX: R93.89 Abnormal findings on diagnostic imaging of other specified body structures (principal); D25.1 Intramural leiomyoma of uterus
CPT/HCPCS: 76830; 76856

== ENCOUNTER → 2020-05-06 09:06 | Outpatient (CLI) | payer OTHER, SELFPAY ==
[2020-05-06 09:44] LABS: COVID19 -Nasal RAPID Negative (Negative)
== END ==
PROVIDERS: PCP Physician Assistant; Visit Provider Surgery
DX: Z11.59 Encounter for screening for other viral diseases (principal)
CPT/HCPCS: 87635; C9803

== ENCOUNTER 2020-05-07 12:52 | Day surgery (SDC) | payer OTHER, SELFPAY ==
[2020-05-05 14:32] VITALS: BMI 26.0
[2020-05-07] VITALS (8 sets, daily range): BP systolic 109–153; BP diastolic 57–79; PULSE 56–75; RESP 12–23; TEMP 36.6–36.9; O2SAT 96–99; BMI 26.0
--- NOTE | 2020-05-07 | PATH_ITS ---
[facility] Accession Number: [id number] . 01 Material submitted: . forearm - RIGHT FOREARM MASS . 01 Diagnosis: Right Forearm, Excision: Mature adipose tissue, consistent with lipoma. MRV 05/09/2020 1003 Local . 01 Electronically signed: . Renato Preston MD, Dermatopathologist NPI- [id number] . 01 Gross description: . Received in formalin and labeled with right forearm mass is one piece of abel adipose tissue measuring 3.8 x 2.4 x 0.7 cm. The tissue is inked, serially sectioned into seven slices, and entirely submitted in cassettes A1 and A2, with four slices in cassette A1 and three slices in cassette A2. ([id number]) /MRV 05/08/2020 0926 Local . 01 Pathologist provided ICD-10: D17.9 . 01 CPT . 437001 Performed at: [facility] [address], [place], [place] [id number] MD Kingsley Gray MD Phone: [phone]
[2020-05-07] MEDS: LACTATED RINGERS 1,000 ML 100 ML IV (01:36)
--- NOTE | 2020-05-07 14:02 | PM.PREOP ---
Pre-operative Note COVID-19 COVID-19 status: Negative Result date/Date tested (Pos, Neg/Pending): 05/06/20 Interval Note History & Physical reviewed/Exam performed by Physician: Yes Changes to H&P: No
[2020-05-07] MEDS: CEFAZOLIN 2 GM/100 ML FROZ.PIGGY IV (14:31)
--- NOTE | 2020-05-07 14:50 | SUR.OPER ---
Supine on padded OR bed, head on pillow, arms secured on padded arm boards at <90 degrees abduction, legs uncrossed, safety belt at thigh, tape over blanket over lower legs.
[2020-05-07] MEDS: BUPIVACAINE 0.25% W/ EPI (PF) 10 ML VIAL 20 ML INJ (14:55)
--- NOTE | 2020-05-07 15:11 | PM.OP.1 ---
Operative Date/Time/Diagnoses Date of procedure: 05/07/20 Time of procedure: 15:11 Pre-op diagnosis: right forearm mass Post-op diagnosis: same Procedure & Clinicians Procedure: excision of right forearm mass 2cm x 3cm fatty mass Same procedure as scheduled: Yes Indications: panful right forearm mass Surgeon: Catherine Shahid Click Yes if Unassisted: Yes Anesthesia Type: General Operative Notes Findings: soft tissue mass adherent to fascia Specimen(s): other (fatty mass 2cm x3cm) Estimated Blood Loss (mL): 1 Procedure in detail: The patient was brought to the operating room, placed supine on the operating table, and sequential compression devices were placed on both legs and turned on. Appropriate perioperative antibiotics were given. General anesthesia was induced by the anesthesiologist and the patient was intubated with an LMA. The right arm was then prepped and draped in sterile fashion, and a surgical time-out was conducted. At this point local anesthetic was injected using 0.25% Marcaine with epi, at the site of the planned incision. A 3cm longitudinal incision was then made in the skin overlying the mass in the direction of the underlying bone. Dissection was carried down through the subcutaneous tissue using cautery. Dissection was then carried circumferentially around the mass using a hemostat. The mass was dissected off of the underlying fascia and passed off the field for pathology. The wound was hemostatic. The subcutaneous tissue was then closed with 3-0 Vicryl suture, and the skin was closed with subcuticular 4-0 Monocryl. The skin edges were then sealed with Dermabond. This concluded the procedure. The patient was awakened from anesthesia and extubated. [facility] The patient was then transferred to the postanesthesia care unit in stable condition. She tolerated the procedure well. Needle sponge and instrument counts were correct x2 at the end of the case. Complications: none Post-operative Condition: stable Disposition: PACU
[2020-05-07] MEDS: OXYCODONE/ACETAMINOPHEN 5/325 TABLET 1 TAB PO (15:39)
== END 2020-05-07 16:30 | disposition home or self-care (01) ==
PROVIDERS: PCP Physician Assistant; Referring Provider Surgery; Visit Provider Surgery
PROC: (CPT 25071; principal; 2020-05-07 14:15)
DX: D17.21 Benign lipomatous neoplasm of skin and subcutaneous tissue of right arm (principal); F41.9 Anxiety disorder, unspecified; F32.9 Major depressive disorder, single episode, unspecified
CPT/HCPCS: 25071; J0690; J1100; J2250; J2405; J2704; J3010

== ENCOUNTER → 2020-08-12 17:25 | Outpatient (CLI) | payer MEDICARE, SELFPAY ==
--- NOTE | 2020-08-12 | DI.MG.S_ITS ---
BILATERAL DIGITAL SCREENING MAMMOGRAM 3D/2D WITH CAD: 08/12/2020 CLINICAL: Routine screening. Family history of breast cancer. Comparison is made to exams dated: 07/11/2019 mammogram, 10/17/2017 mammogram, 07/28/2016 mammogram, and 02/13/2015 mammogram - [facility]. The tissue of both breasts is extremely dense, which lowers the sensitivity of mammography. Current study was also evaluated with a Computer Aided Detection (CAD) system. There are benign post operative findings in the right breast. No significant masses, calcifications, or other findings are seen in either breast. There has been no significant interval change. IMPRESSION: BENIGN There is no mammographic evidence of malignancy. A 1 year screening mammogram is recommended. This exam was interpreted at Station ID: [id number]. NOTE: For mammograms, a report in lay terms will be sent to the patient. Approximately 15% of breast malignancies will not be visualized mammographically. In the management of a palpable breast mass, a negative mammogram must not discourage biopsy of a clinically suspicious lesion. Electronically Signed By: Vidal vaca/noel:08/13/2020 08:00:59 letter sent: Normal Exam ACR BI-RADS Category 2: Benign Finding(s) 3342F
== END ==
PROVIDERS: PCP Physician Assistant; Referring Provider Physician Assistant; Visit Provider Physician Assistant
DX: Z12.31 Encounter for screening mammogram for malignant neoplasm of breast (principal); Z80.3 Family history of malignant neoplasm of breast
CPT/HCPCS: 77063; 77067

== ENCOUNTER → 2020-09-09 12:33 | Outpatient (CLI) | payer MEDICARE, SELFPAY ==
[2020-09-09 13:38] LABS: Add Manual Diff / Slide Review NO; Basophils Absolute Auto 100 /uL (0-100); Basophils Percent Auto 1.3 % (0-2); Eosinophils Absolute Auto 100 /uL (0-450); Eosinophils Percent Auto 1.7 % (2-4); Hematocrit 39.9 % (36-46); Hemoglobin 13.2 g/dL (12.0-16.0); Lymphocytes Absolute Auto 1600 /uL (1100-4500); Mean Corpuscular HGB Conc 33.1 % (30-36); Mean Corpuscular Hemoglobin 26.6 PG (26-34); Mean Corpuscular Volume 80.4 fL (80-100); Monocytes Absolute Auto 500 /uL (0-900); Monocytes Percent Auto 10.4 % (3-14); Neutrophils Absolute Auto 3000 /uL (1500-7000); Neutrophils Percent Auto 56.6 % (50-75); Platelet Count 298 X10^3/uL (150-400); Red Blood Cell Count 4.97 X10^6/uL (4.0-5.2); Red Cell Distribution Width 13.9 % (11.6-14.8); White Blood Cell Count 5.2 X10^3/uL (4.5-11.0)
[2020-09-09 14:38] LABS: Alanine Aminotransferase 20 IU/L (<35); Albumin 4.4 g/dL (3.5-5.0); Albumin Globulin Ratio 1.4 (1.0-2.8); Alkaline Phosphatase 98 U/L (38-126); Aspartate Aminotransferase 30 IU/L (14-36); BUN Creatinine Ratio 22.4 (6-22); Bilirubin Total 0.5 mg/dL (0.2-1.3); Blood Urea Nitrogen 17 mg/dL (7-17); Calcium 9.5 mg/dL (8.4-10.2); Carbon Dioxide 28 mmol/L (22-32); Chloride 103 mmol/L (98-107); Cholesterol 237 mg/dL (140-199); Estimated Glomerular Filt Rate > 60.0 mL/min (>60); Globulin 3.2 g/dL (1.7-4.1); Glucose 89 mg/dL (80-110); HDL Cholesterol 48 mg/dL (40-60); HEMOLYSIS < 15 (0-50); LDL Cholesterol Calculated 149 mg/dL (<100); Potassium 4.2 mmol/L (3.4-5.1); Sodium 139 mmol/L (137-145); Total Protein 7.6 g/dL (6.3-8.2); Triglycerides 201 mg/dL (35-150)
[2020-09-09 17:20] LABS: Vitamin D 25 Hydroxy (D3) 51.4 ng/mL (30.0-100.0)
== END ==
PROVIDERS: PCP Physician Assistant; Referring Provider Physician Assistant; Visit Provider Physician Assistant
DX: E78.2 Mixed hyperlipidemia (principal); E55.9 Vitamin D deficiency, unspecified
CPT/HCPCS: 36415; 80053; 80061; 82306; 85025

== ENCOUNTER 2020-12-31 15:39 | Emergency (ER) | payer MEDICARE, SELFPAY ==
--- NOTE | 2020-12-31 15:55 | DI.RAD.S_ITS ---
PROCEDURE: XR FOREARM LT 2V INDICATIONS: Fall/Swelling TECHNIQUE: 2 views of the forearm were acquired. COMPARISON: [facility], CR, XR WRIST LT MIN 3V, 12/31/2020, 16:12. FINDINGS: Bones: Comminuted distal radial fracture, possibly involving the articular surface. No other fractures or dislocations seen.. No suspicious bony lesions. Soft tissues: No suspicious soft tissue calcifications or masses. IMPRESSION: Comminuted distal radius fracture, possibly extending to the articular surface. Dictated by: Kyle Be M.D. on 12/31/2020 at 16:32 Approved by: Kyle Be M.D. on 12/31/2020 at 16:33
--- NOTE | 2020-12-31 15:55 | DI.RAD.S_ITS ---
PROCEDURE: XR WRIST LT MIN 3V INDICATIONS: Fall/Swelling TECHNIQUE: 3 views of the wrist were acquired. COMPARISON: None. FINDINGS: Bones: Comminuted distal radius fracture, possibly extending to the articular surface. No other fractures or dislocations seen. 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 No suspicious bony lesions. Scaphoid view: Scaphoid intact Soft tissues: No suspicious soft tissue calcifications. IMPRESSION: Comminuted distal radius fracture, possibly extending to the articular surface. Dictated by: Kyle Be M.D. on 12/31/2020 at 16:33 Approved by: Kyle Be M.D. on 12/31/2020 at 16:34
[2020-12-31 15:56] VITALS: BP 121/68; PULSE 65; RESP 16; TEMP 36.6; O2SAT 100; BMI 27.1
[2020-12-31] MEDS: IBUPROFEN 400 MG TABLET PO (16:03)
--- NOTE | 2020-12-31 16:19 | ED.UPPEXIN ---
HPI - Extremity Injury (Upper) General Chief Complaint: Extremity Injury, Upper Stated Complaint: fell backwards and fell on left arm on rocks Time Seen by Provider: 12/31/20 15:58 Source: patient Mode of arrival: Ambulatory Limitations: no limitations History of Present Illness HPI narrative: Katie presents today with chief complaint of left arm pain after she had a ground level fall approximately 45 minutes prior to arrival. She reports that she was walking backwards while pulling a hose in her yard. She tripped and fell with her left arm extended. She is having pain in her wrist and forearm. She denies hitting her head, loss of consciousness or any other injuries or concerns at this time. Related Data Home Medications Medication Instructions Recorded Confirmed atorvastatin 20 mg tablet 20 mg PO DAILY 08/14/19 05/27/20 calcium carbonate 500 mg calcium 500 mg PO DAILY 08/14/19 05/27/20 (1,250 mg) tablet (Calcium 500) cholecalciferol (vitamin D3) 125 125 mcg PO DAILY 08/14/19 05/27/20 mcg (5,000 unit) capsule (Dialyvite Vitamin D) multivitamin 1 tab PO DAILY 08/14/19 05/27/20 omeprazole 10 mg capsule,delayed 10 mg PO DAILY 08/14/19 05/27/20 release sertraline 25 mg tablet 25 mg PO DAILY 08/14/19 05/27/20 sucralfate 1 gram tablet 1 g PO QID 05/07/20 05/27/20 Previous Rx's Medication Instructions Recorded hydrocodone 5 mg-acetaminophen 325 1 tab PO BID PRN #10 tab 12/31/20 mg tablet Allergies Allergy/AdvReac Type Severity Reaction Status Date / Time Sulfa (Sulfonamide Allergy Unknown Eyes swell Verified 12/31/20 16:03 Antibiotics) shut [SULFA (SULFONAMIDE ANTIBIOTICS)] Review of Systems Review of Systems Narrative: As per HPI Patient History Medical History Anemia Anxiety Arrhythmia Arthritis Depression Diverticulitis Eczema Elevated cholesterol GERD (gastroesophageal reflux disease) History of cardiac murmur as a child History of frequent headaches Knee pain Low blood sugar Nausea Shortness of breath Sinus drainage Urinary frequency Urinary incontinence Surgical History History of tonsillectomy Status post bunionectomy Status post hysteroscopy Family History Brother Age: 66 High cholesterol Depression Mental health problem Mother Age: 87 Breast cancer Heart disease Hypertension Mental health problem Grandfather Age: 74 Stroke Grandmother Age: 73 AAA (abdominal aortic aneurysm) Heart disease Father Hypertension Heart disease Social History household members: none occupational status: employed Smoking Status: Never smoker alcohol intake: never substance use type: does not use Smoking Status: Never smoker alcohol intake frequency: 0-2 drinks per day Substance Use Type: does not use Exam Narrative Exam Narrative: Exam Narrative: Const General: cooperative, healthy appearing, comfortable, no acute distress, well developed and well groomed Nutritional Appearance: average body habitus Orientation: alert and oriented x3 HENMT Head: normal to inspection and atraumatic Ears: hearing grossly normal bilaterally Nose: external nose normal and nares normal Face and sinus: normal facial exam Neck Neck: normal visual inspection and supple Resp Effort & Inspection: normal respiratory effort, able to speak in complete sentences, no audible wheezes, not labored, no nasal flaring and no respiratory distress Extremities Upper extremities exposed. Left shoulder, elbow are within normal limits. Mild distal left forearm pain. Left wrist pain and swelling noted maximal over distal radius. Decreased range of motion of left wrist. Unable to pronate or supinate forearm. Radial pulses normal. No significant hematoma. Digits of left hand are normal to evaluation with normal capillary refill. No sensory deficits appreciated. Neuro General: alert, oriented x3, gait normal, tone normal and moves all extremities Cognition: normal cognition Speech: speech normal Gait: normal gait Psych Appearance: grossly normal and well kempt Mental Status: mental status grossly normal Speech and Movement: speech and movement normal Mood: congruent mood Affect: normal affect Initial Vital Signs Initial Vital Signs: Vital Signs Temperature 97.8 F 12/31/20 15:56 Pulse Rate 65 12/31/20 15:56 Respiratory Rate 16 12/31/20 15:56 Blood Pressure 121/68 12/31/20 15:56 Pulse Oximetry 100 12/31/20 15:56 Course Orders Ordered: Discontinued Medications Ibuprofen (Ibuprofen 400 Mg Tablet) 400 mg PO NOW ONE Stop: 12/31/20 15:56 Last Admin: 12/31/20 16:03 Dose: 400 mg Documented by: GRACE Vital Signs Vital signs: Vital Signs - 8 hr 12/31/20 15:56 Temperature 97.8 F Pulse Rate 65 Respiratory Rate 16 Blood Pressure 121/68 Pulse Oximetry 100 Discharge Plan Departure Patient Disposition: Home Clinical Impression: Distal radius fracture, left Qualifiers: Encounter type: initial encounter Fracture type: closed Fracture morphology: unspecified fracture morphology Qualified Code(s): S52.502A - Unspecified fracture of the lower end of left radius, initial encounter for closed fracture Discharge Date/Time: 12/31/20 17:56 Instructions: DI for Distal Radius Fracture Activity Restrictions/Additional Instructions: It was very nice to meet you this afternoon. You fractured your left wrist. Please keep this in the splint until you are seen by an orthopedics. Give [facility] a call tomorrow as discussed to set up a follow-up apt. You can alternate between ibuprofen or acetaminophen as needed for pain. Please return if your pain becomes significantly worse, you develope numbness or tingling in your fingers, or if you have any additional concerns or complaints. Thank you Stone Carmichael PA-C Prescriptions: New hydrocodone-acetaminophen 5-325 mg tablet 1 tab PO BID PRN (Reason: pain) Qty: 10 RF: 0 No Action atorvastatin 20 mg tablet 20 mg PO DAILY RF: 0 omeprazole 10 mg capsule,delayed release(DR/EC) 10 mg PO DAILY RF: 0 sertraline 25 mg tablet 25 mg PO DAILY RF: 0 calcium carbonate [Calcium 500] 500 mg calcium (1,250 mg) tablet 500 mg PO DAILY RF: 0 cholecalciferol (vitamin D3) [Dialyvite Vitamin D] 125 mcg (5,000 unit) capsule 125 mcg PO DAILY RF: 0 multivitamin Tablet 1 tab PO DAILY RF: 0 sucralfate 1 gram Tablet 1 g PO QID RF: 0 Referrals: Vicky Chavez PA-C [Primary Care Provider] - Addison Charles MD [Physician] -
[2020-12-31 17:55] VITALS: BP 134/75; PULSE 80; RESP 12; O2SAT 98
== END 2020-12-31 17:56 | disposition home or self-care (01) ==
PROVIDERS: Emergency Provider Physician Assistant; PCP Physician Assistant
DX: S52.502A Unspecified fracture of the lower end of left radius, initial encounter for closed fracture (principal); W19.XXXA Unspecified fall, initial encounter
CPT/HCPCS: 73090; 73110; 99283

== ENCOUNTER 2021-04-09 16:00 | Outpatient (RCR) | payer MEDICARE, SELFPAY ==
--- NOTE | 2021-03-03 16:00 | PT.OIE ---
Current Diagnoses Pain in left wrist (03/03/21) Stiffness of left wrist, not elsewhere classified (03/03/21) Weakness (03/03/21) Colles' fracture of left radius, subsequent encounter for closed fracture with routine healing (03/03/21) Past Medical History (Last Reviewed 05/27/20 @ 12:38 by Catherine Shahid MD) Anemia Anxiety Arrhythmia Arthritis Depression Diverticulitis Eczema Elevated cholesterol GERD (gastroesophageal reflux disease) History of cardiac murmur as a child History of frequent headaches Knee pain Low blood sugar Nausea Shortness of breath Sinus drainage Urinary frequency Urinary incontinence Past Surgical History (Last Reviewed 05/27/20 @ 12:38 by Catherine Shahid MD) History of tonsillectomy Status post bunionectomy Status post hysteroscopy Visit Care Team Role Provider Type Vicky Chavez PA-C Attending Provider Non-Staff Family Provider Primary Care Provider Referring Provider Specialty: Internal Medicine Address: [address] [place] [address] Email: [email or web address] [facility] Initial Evaluation PT-OP-A Visit Information Start: 03/03/21 17:38 Freq: Status: Active Protocol: Document 03/03/21 15:15 DCW (Rec: 03/03/21 17:48 DCW [id number]) Out-Patient Physical Therapy Visit Information Visit Information Visit Type Initial Evaluation Visit Start Time 15:15 Visit Stop Time 16:00 Total Visit Minutes 45 Visit Number 1 Number of ORDINARY SEAMAN Visits 0 Evaluation Information Evaluation Date 03/03/21 PT-OP-B Current Condition Start: 03/03/21 17:38 Freq: Status: Active Protocol: Document 03/03/21 15:15 DCW (Rec: 03/03/21 17:48 DCW [id number]) Current Condition History of Current Condition Onset Date 12/31/20 Current Complaints Wrist pain and stiffness s/p distal radius fracture History of Current Condition Pt is a 65 year old female presenting to skilled therapy two months s/p left distal radius fracture. Pt notes on , she was out in her garden, trying to yank on a 100' long hose, and tripped over a stone, landing on her outstretched hard on a bed of [employer]. Pt reports she was in a cast until 02/10/21, and was then wearing a brace, which she has since removed because it was causing her skin to break out. Pt reports any sort of pushing down or leaning on her arm causes increased pain, as well as supination/pronation or wrist flexion. Pt notes that the ortho she has been seeing for her arm told her she could lift nothing heavier than a coffee cup, but admits that I've already broken that rule a lot. Treatment Goals Patient/Caregiver Goals Pt's goal is to return to riding her bike. PT-OP-C Subjective Start: 03/03/21 17:38 Freq: Status: Active Protocol: Document 03/03/21 15:15 DCW (Rec: 03/03/21 17:48 DCW [id number]) OP-PT Subjective Patient Comments Patient Comments Just looking at my arm, it still looks kind of bent to me . They said the x-ray shows that it is straight, but I'm not sure. Patient Reported Progress Improving OP-PT Pain Assessment Pain Assessment Grid Paper Pain Assessment Grid Completed Yes Location Left Wrist Intensity 4 Scale Used Numeric (0 - 10) Description Aching,Throbbing PT-OP-J Posture/Palpation/Skin Start: 03/03/21 17:38 Freq: Status: Active Protocol: Document 03/03/21 15:15 DCW (Rec: 03/03/21 17:54 DCW [id number]) Skin Assessment Circumference Measurement 3 Location L hand around 2nd-5th Metacarpals Measurement (Centimeters) 17.8 Comments R = 17.8 2 Location L Forearm 5 cm proximal to wrist Measurement (Centimeters) 16.9 Comments R = 15.5 1 Location L Wrist just distal to ulnar styloid process Measurement (Centimeters) 16.5 Comments R = 15.1 PT-OP-K Range of Motion Start: 03/03/21 17:38 Freq: Status: Active Protocol: Document 03/03/21 15:15 DCW (Rec: 03/03/21 17:54 DCW [id number]) Wrist Goniometric Range of Motion Wrist Left Wrist ROM WFL No Flexion Active (degrees) 27 Extension Active (degrees) 38 Ulnar Deviation Active (degrees) 30 Radial Deviation Active (degrees) 12 PT-OP-M Strength Start: 03/03/21 17:38 Freq: Status: Active Protocol: Document 03/03/21 15:15 DCW (Rec: 03/03/21 17:54 DCW [id number]) Hand Comic Artist/Pinch Strength Hand Dominance Hand Dominance Right Hand Strength Right Comic Artist (lbs) 43.33 Comments 3-trial average (40, 45, 45) Left Comic Artist (lbs) 20 Comments 3-trial average (20, 20, 20) PT-OP-Q Treatments Start: 03/03/21 17:38 Freq: Status: Active Protocol: Document 03/03/21 15:15 DCW (Rec: 03/03/21 17:48 DCW [id number]) Therapeutic Exercises Sitting Exercises 3 Sitting Exercise Name Supination/Pronation Side left Resistance 0# Comments AROM 2 Sitting Exercise Name Wrist circles Side left Comments AROM 1 Sitting Exercise Name Thera-putty isotope technician strengthening Side left Comments finger flexion, extension PT-OP-T Assessment and Plan Start: 03/03/21 17:38 Freq: Status: Active Protocol: Document 03/03/21 15:15 DCW (Rec: 03/04/21 09:48 [facility] [id number]) Physical Therapy Assessment Rehab Potential Rehabilitation Potential Good Evaluation Complexity Number of Personal Factors/Comorbidities 1-2 Number of Body Systems Impaired 1-2 Clinical Presentation at Evaluation Stable Impairments Impairments Functional Activities, Functional Mobility,Pain,ROM, Soft Tissue Mobility,Strength Goals Three Impairment Decreased ROM of left wrist flexion (27?) and extension ( 38?) Engineering Associate Goal (LTG) Pt to increase wrist ROM to at least 60? with both flexion and extension in order to return to normal pre-injury activites LTG Duration 05/04/21 Two Impairment Pt exhibits swelling along left wrist and forearm Engineering Associate Goal (LTG) Circumfrential measurements to be equal between left and right UEs to demonstrate elimination of post-injury edema LTG Duration 05/04/21 One Impairment Pt does not have an appropriate home exercise program Short Term Goal (STG) Pt to be independent and compliant with an appropriate HEP STG Duration 04/02/21 Assessment Summary Assessment Pt presents with left wrist pain, stiffness, and weakness two months s/p distal radius fracture. Pt is significantly restricted with ROM, specifically wrist flexion (27 ?) and extension (38?) following a month in a cast and then a few weeks in a wrist brace. Pt also still has some edema in the area, which adds to the ROM limitations. Pt demonstrates left isotope technician weakness, and difficulty with forearm pronation/supination. Pt should benefit from skilled therapy focusing on improving functional mobility, ROM, strength, and pain control. Physical Therapy Plan Frequency and Duration Frequency of Treatment 2x/Week Duration of Treatment 2 months Plan of Care Start Date 03/03/21 Plan of Care End Date 05/03/21 Therapeutic Interventions Therapeutic Interventions Home Exercise Program,Joint Mobilizations,Manual Therapy, Patient/Caregiver Education, Self-Care/Home Management,Soft Tissue Mobilization, Therapeutic Exercises Modalities Cold Pack/Ice Massage,Electric Stimulation,Hot Packs, Ultrasound Next Visit Focus/Plan Next Note Type Treatment Note Next Visit Plan Wrist ROM, isotope technician strengthening
--- NOTE | 2021-03-03 16:00 | PT.OPPOC ---
Physical, Occupational & Speech Therapy At [facility] Current Diagnoses Pain in left wrist (03/03/21) Stiffness of left wrist, not elsewhere classified (03/03/21) Weakness (03/03/21) Colles' fracture of left radius, subsequent encounter for closed fracture with routine healing (03/03/21) Visit Care Team Role Provider Type Vicky Chavez PA-C Attending Provider Non-Staff Family Provider Primary Care Provider Referring Provider Specialty: Internal Medicine Address: [address] [place] [address] Email: [email or web address] Plan Of Care PT-OP-T Assessment and Plan Start: 03/03/21 17:38 Freq: Status: Active Protocol: Document 03/03/21 15:15 DCW (Rec: 03/04/21 09:48 DCW [id number]) Physical Therapy Assessment Rehab Potential Rehabilitation Potential Good Evaluation Complexity Number of Personal Factors/Comorbidities 1-2 Number of Body Systems Impaired 1-2 Clinical Presentation at Evaluation Stable Impairments Impairments Functional Activities, Functional Mobility,Pain,ROM, Soft Tissue Mobility,Strength Goals Three Impairment Decreased ROM of left wrist flexion (27?) and extension ( 38?) Fci Goal (LTG) Pt to increase wrist ROM to at least 60? with both flexion and extension in order to return to normal pre-injury activites LTG Duration 05/04/21 Two Impairment Pt exhibits swelling along left wrist and forearm Link And Link Knitting Machine Operator Goal (LTG) Circumfrential measurements to be equal between left and right UEs to demonstrate elimination of post-injury edema LTG Duration 05/04/21 One Impairment Pt does not have an appropriate home exercise program Short Term Goal (STG) Pt to be independent and compliant with an appropriate HEP STG Duration 04/02/21 Assessment Summary Assessment Pt presents with left wrist pain, stiffness, and weakness two months s/p distal radius fracture. Pt is significantly restricted with ROM, specifically wrist flexion (27 ?) and extension (38?) following a month in a cast and then a few weeks in a wrist brace. Pt also still has some edema in the area, which adds to the ROM limitations. Pt demonstrates left hay stacker operator weakness, and difficulty with forearm pronation/supination. Pt should benefit from skilled therapy focusing on improving functional mobility, ROM, strength, and pain control. Physical Therapy Plan Frequency and Duration Frequency of Treatment 2x/Week Duration of Treatment 2 months Plan of Care Start Date 03/03/21 Plan of Care End Date 05/03/21 Therapeutic Interventions Therapeutic Interventions Home Exercise Program,Joint Mobilizations,Manual Therapy, Patient/Caregiver Education, Self-Care/Home Management,Soft Tissue Mobilization, Therapeutic Exercises Modalities Cold Pack/Ice Massage,Electric Stimulation,Hot Packs, Ultrasound Next Visit Focus/Plan Next Note Type Treatment Note Next Visit Plan Wrist ROM, hay stacker operator strengthening Plan of Care Dates Plan of Care Start Date 03/03/21 Plan of Care End Date 05/03/21 Electronically Signed by: Ronak Meehan, PT 03/04/21 1203 Please Sign and Return: I have reviewed this Plan of Care and certify that the skilled therapy services above are required to meet the patient?s needs. Physician Signature Date Printed Name and Credentials Clinical Instructor Signature Printed Name and Credentials
--- NOTE | 2021-03-05 16:49 | PT.OTN ---
Current Diagnoses Pain in left wrist (03/05/21) Stiffness of left wrist, not elsewhere classified (03/05/21) Weakness (03/05/21) Colles' fracture of left radius, subsequent encounter for closed fracture with routine healing (03/05/21) Physical Therapy Treatment Note PT-OP-A Visit Information Start: 03/03/21 17:38 Freq: Status: Active Protocol: Document 03/05/21 16:00 DCW (Rec: 03/05/21 16:49 DCW [id number]) Out-Patient Physical Therapy Visit Information Visit Information Visit Type Treatment Note Visit Start Time 16:00 Visit Stop Time 16:45 Total Visit Minutes 45 Visit Number 2 PT-OP-B Current Condition Start: 03/03/21 17:38 Freq: Status: Active Protocol: Document 03/03/21 15:15 DCW (Rec: 03/03/21 17:48 DCW [id number]) Current Condition History of Current Condition Onset Date 12/31/20 Current Complaints Wrist pain and stiffness s/p distal radius fracture History of Current Condition Pt is a 65 year old female presenting to skilled therapy two months s/p left distal radius fracture. Pt notes on , she was out in her garden, trying to yank on a 100' long hose, and tripped over a stone, landing on her outstretched hard on a bed of river rocks. Pt reports she was in a cast until 02/10/21, and was then wearing a brace, which she has since removed because it was causing her skin to break out. Pt reports any sort of pushing down or leaning on her arm causes increased pain, as well as supination/pronation or wrist flexion. Pt notes that the ortho she has been seeing for her arm told her she could lift nothing heavier than a coffee cup, but admits that I've already broken that rule a lot. Treatment Goals Patient/Caregiver Goals Pt's goal is to return to riding her bike. PT-OP-C Subjective Start: 03/03/21 17:38 Freq: Status: Active Protocol: Document 03/05/21 16:00 DCW (Rec: 03/05/21 16:49 DCW [id number]) OP-PT Subjective Patient Comments Patient Comments Pt admits she is pretty sore, but has been compliant with her HEP. PT-OP-J Posture/Palpation/Skin Start: 03/03/21 17:38 Freq: Status: Active Protocol: Document 03/03/21 15:15 DCW (Rec: 03/03/21 17:54 DCW [id number]) Skin Assessment Circumference Measurement 3 Location L hand around 2nd-5th Metacarpals Measurement (Centimeters) 17.8 Comments R = 17.8 2 Location L Forearm 5 cm proximal to wrist Measurement (Centimeters) 16.9 Comments R = 15.5 1 Location L Wrist just distal to ulnar styloid process Measurement (Centimeters) 16.5 Comments R = 15.1 PT-OP-K Range of Motion Start: 03/03/21 17:38 Freq: Status: Active Protocol: Document 03/03/21 15:15 DCW (Rec: 03/03/21 17:54 DCW [id number]) Wrist Goniometric Range of Motion Wrist Left Wrist ROM WFL No Flexion Active (degrees) 27 Extension Active (degrees) 38 Ulnar Deviation Active (degrees) 30 Radial Deviation Active (degrees) 12 PT-OP-M Strength Start: 03/03/21 17:38 Freq: Status: Active Protocol: Document 03/03/21 15:15 DCW (Rec: 03/03/21 17:54 DCW [id number]) Hand Oliving Machine Operator/Pinch Strength Hand Dominance Hand Dominance Right Hand Strength Right Oliving Machine Operator (lbs) 43.33 Comments 3-trial average (40, 45, 45) Left Oliving Machine Operator (lbs) 20 Comments 3-trial average (20, 20, 20) PT-OP-Q Treatments Start: 03/03/21 17:38 Freq: Status: Active Protocol: Document 03/05/21 16:00 DCW (Rec: 03/05/21 16:49 DCW [id number]) Therapeutic Exercises Sitting Exercises 7 Sitting Exercise Name Flexibar circles Side left Resistance Red 6 Sitting Exercise Name Flexi-bar twisting Side bilateral Resistance Red 5 Sitting Exercise Name Flexi-bar wrist supination/ pronation Side bilateral Resistance Red 4 Sitting Exercise Name PROM wrist Side left Standing Exercises 1 Standing Exercise Name Ball/Wall circles Other Exercises 1 Other Exercise Name UE Resisted side-stepping Resistance Yellow Equipment Used T-band Manual Therapy Treatment Soft Tissue Mobilization 1 Body Location Left wrist flexors Mobilization Type Sustained Pressure,Trigger Point Release Intensity/Depth Moderate Body Position Sitting PT-OP-T Assessment and Plan Start: 03/03/21 17:38 Freq: Status: Active Protocol: Document 03/05/21 16:00 DCW (Rec: 03/05/21 16:49 DCW [id number]) Physical Therapy Assessment Impairments Impairments Functional Activities, Functional Mobility,Pain,ROM, Soft Tissue Mobility,Strength Goals Three Impairment Decreased ROM of left wrist flexion (27?) and extension ( 38?) Care Home Goal (LTG) Pt to increase wrist ROM to at least 60? with both flexion and extension in order to return to normal pre-injury activites LTG Duration 05/04/21 Two Impairment Pt exhibits swelling along left wrist and forearm Care Home Goal (LTG) Circumfrential measurements to be equal between left and right UEs to demonstrate elimination of post-injury edema LTG Duration 05/04/21 One Impairment Pt does not have an appropriate home exercise program Short Term Goal (STG) Pt to be independent and compliant with an appropriate HEP STG Duration 04/02/21 Assessment Summary Assessment Pt tolerated treatment fairly well, but did note some soreness and discomfort in her forearm with majority of exercises, noted it mainly felt like muscle soreness due to not being used to activity. Physical Therapy Plan Frequency and Duration Frequency of Treatment 2x/Week Duration of Treatment 2 months Plan of Care Start Date 03/03/21 Plan of Care End Date 05/03/21 Therapeutic Interventions Therapeutic Interventions Home Exercise Program,Joint Mobilizations,Manual Therapy, Patient/Caregiver Education, Self-Care/Home Management,Soft Tissue Mobilization, Therapeutic Exercises Modalities Cold Pack/Ice Massage,Electric Stimulation,Hot Packs, Ultrasound Next Visit Focus/Plan Next Note Type Treatment Note Next Visit Plan Wrist ROM, photo producer strengthening
--- NOTE | 2021-03-09 15:12 | PT.OTN ---
Current Diagnoses Pain in left wrist (03/09/21) Stiffness of left wrist, not elsewhere classified (03/09/21) Weakness (03/09/21) Colles' fracture of left radius, subsequent encounter for closed fracture with routine healing (03/09/21) Physical Therapy Treatment Note PT-OP-A Visit Information Start: 03/03/21 17:38 Freq: Status: Active Protocol: Document 03/09/21 14:34 MA (Rec: 03/09/21 15:12 MA [id number]) Out-Patient Physical Therapy Visit Information Visit Information Visit Type Treatment Note Visit Start Time 14:30 Visit Stop Time 15:10 Total Visit Minutes 40 Visit Number 3 Number of HUMAN RESOURCES REPRESENTATIVE Visits 1 PT-OP-B Current Condition Start: 03/03/21 17:38 Freq: Status: Active Protocol: Document 03/03/21 15:15 DCW (Rec: 03/03/21 17:48 DCW [id number]) Current Condition History of Current Condition Onset Date 12/31/20 Current Complaints Wrist pain and stiffness s/p distal radius fracture History of Current Condition Pt is a 65 year old female presenting to skilled therapy two months s/p left distal radius fracture. Pt notes on , she was out in her garden, trying to yank on a 100' long hose, and tripped over a stone, landing on her outstretched hard on a bed of river rocks. Pt reports she was in a cast until 02/10/21, and was then wearing a brace, which she has since removed because it was causing her skin to break out. Pt reports any sort of pushing down or leaning on her arm causes increased pain, as well as supination/pronation or wrist flexion. Pt notes that the ortho she has been seeing for her arm told her she could lift nothing heavier than a coffee cup, but admits that I've already broken that rule a lot. Treatment Goals Patient/Caregiver Goals Pt's goal is to return to riding her bike. PT-OP-C Subjective Start: 03/03/21 17:38 Freq: Status: Active Protocol: Document 03/09/21 14:34 MA (Rec: 03/09/21 15:12 MA [id number]) OP-PT Subjective Patient Comments Patient Comments Pt states I was really sore after last session and couldnt move my wrist on Saturday but it was better by Tuesday. PT-OP-J Posture/Palpation/Skin Start: 03/03/21 17:38 Freq: Status: Active Protocol: Document 03/03/21 15:15 DCW (Rec: 03/03/21 17:54 [facility] [id number]) Skin Assessment Circumference Measurement 3 Location L hand around 2nd-5th Metacarpals Measurement (Centimeters) 17.8 Comments R = 17.8 2 Location L Forearm 5 cm proximal to wrist Measurement (Centimeters) 16.9 Comments R = 15.5 1 Location L Wrist just distal to ulnar styloid process Measurement (Centimeters) 16.5 Comments R = 15.1 PT-OP-K Range of Motion Start: 03/03/21 17:38 Freq: Status: Active Protocol: Document 03/03/21 15:15 DCW (Rec: 03/03/21 17:54 DCW [id number]) Wrist Goniometric Range of Motion Wrist Left Wrist ROM WFL No Flexion Active (degrees) 27 Extension Active (degrees) 38 Ulnar Deviation Active (degrees) 30 Radial Deviation Active (degrees) 12 PT-OP-M Strength Start: 03/03/21 17:38 Freq: Status: Active Protocol: Document 03/03/21 15:15 DCW (Rec: 03/03/21 17:54 [facility] [id number]) Hand Mate Fishing Vessel/Pinch Strength Hand Dominance Hand Dominance Right Hand Strength Right Mate Fishing Vessel (lbs) 43.33 Comments 3-trial average (40, 45, 45) Left Mate Fishing Vessel (lbs) 20 Comments 3-trial average (20, 20, 20) PT-OP-Q Treatments Start: 03/03/21 17:38 Freq: Status: Active Protocol: Document 03/09/21 14:34 MA (Rec: 03/09/21 15:12 MA [id number]) Therapeutic Exercises Sitting Exercises 7 Sitting Exercise Name Flexibar circles Side left Resistance Red 6 Sitting Exercise Name Flexi-bar twisting Side bilateral Resistance Red 5 Sitting Exercise Name Flexi-bar wrist supination/ pronation Side bilateral Resistance Red 4 Sitting Exercise Name PROM wrist Side left 3 Sitting Exercise Name Supination/Pronation Side left Resistance 0# Comments AROM 2 Sitting Exercise Name Wrist circles Side left Comments AROM 1 Sitting Exercise Name Thera-putty ornamental brick installer strengthening Side left Comments finger flexion, extension Manual Therapy Treatment Soft Tissue Mobilization 1 Body Location Left wrist flexors & extensors Mobilization Type Sustained Pressure,Trigger Point Release Intensity/Depth Moderate Body Position Sitting PT-OP-R Modalities Start: 03/03/21 17:38 Freq: Status: Active Protocol: Document 03/09/21 14:34 MA (Rec: 03/09/21 15:12 MA [id number]) Hot Pack/Cold Pack Treatment Cold Pack Location ice massage L wrist PT-OP-T Assessment and Plan Start: 03/03/21 17:38 Freq: Status: Active Protocol: Document 03/09/21 14:34 MA (Rec: 03/09/21 15:12 MA [id number]) Physical Therapy Assessment Goals Three Impairment Decreased ROM of left wrist flexion (27?) and extension ( 38?) Assisted Goal (LTG) Pt to increase wrist ROM to at least 60? with both flexion and extension in order to return to normal pre-injury activites LTG Duration 05/04/21 Two Impairment Pt exhibits swelling along left wrist and forearm Assisted Goal (LTG) Circumfrential measurements to be equal between left and right UEs to demonstrate elimination of post-injury edema LTG Duration 05/04/21 One Impairment Pt does not have an appropriate home exercise program Short Term Goal (STG) Pt to be independent and compliant with an appropriate HEP STG Duration 04/02/21 Assessment Summary Assessment Pt had minor pain through L wrist extensors and supinators during exercises. She has no pain during putty exercises. Pt sees ortho tomorrow and will ask if she is supposed to be wearing a brace still and what the point of the brace was, support vs compression, for possible taping next session to decrease swelling and pain Physical Therapy Plan Frequency and Duration Frequency of Treatment 2x/Week Duration of Treatment 2 months Plan of Care Start Date 03/03/21 Plan of Care End Date 05/03/21 Therapeutic Interventions Therapeutic Interventions Home Exercise Program,Joint Mobilizations,Manual Therapy, Patient/Caregiver Education, Self-Care/Home Management,Soft Tissue Mobilization, Therapeutic Exercises Modalities Cold Pack/Ice Massage,Electric Stimulation,Hot Packs, Ultrasound Next Visit Focus/Plan Next Note Type Treatment Note Next Visit Plan Wrist ROM, ornamental brick installer strengthening
--- NOTE | 2021-03-12 14:25 | PT.OTN ---
Current Diagnoses Pain in left wrist (03/12/21) Stiffness of left wrist, not elsewhere classified (03/12/21) Weakness (03/12/21) Colles' fracture of left radius, subsequent encounter for closed fracture with routine healing (03/12/21) Physical Therapy Treatment Note PT-OP-A Visit Information Start: 03/03/21 17:38 Freq: Status: Active Protocol: Document 03/12/21 13:49 DCW (Rec: 03/12/21 14:25 DCW [id number]) Out-Patient Physical Therapy Visit Information Visit Information Visit Type Treatment Note Visit Start Time 13:49 Visit Stop Time 14:30 Total Visit Minutes 41 Visit Number 4 Number of SALESPERSON PETS AND PET SUPPLIES Visits 0 Evaluation Information Evaluation Date 03/03/21 PT-OP-B Current Condition Start: 03/03/21 17:38 Freq: Status: Active Protocol: Document 03/03/21 15:15 DCW (Rec: 03/03/21 17:48 DCW [id number]) Current Condition History of Current Condition Onset Date 12/31/20 Current Complaints Wrist pain and stiffness s/p distal radius fracture History of Current Condition Pt is a 65 year old female presenting to skilled therapy two months s/p left distal radius fracture. Pt notes on , she was out in her garden, trying to yank on a 100' long hose, and tripped over a stone, landing on her outstretched hard on a bed of river rocks. Pt reports she was in a cast until 02/10/21, and was then wearing a brace, which she has since removed because it was causing her skin to break out. Pt reports any sort of pushing down or leaning on her arm causes increased pain, as well as supination/pronation or wrist flexion. Pt notes that the ortho she has been seeing for her arm told her she could lift nothing heavier than a coffee cup, but admits that I've already broken that rule a lot. Treatment Goals Patient/Caregiver Goals Pt's goal is to return to riding her bike. PT-OP-C Subjective Start: 03/03/21 17:38 Freq: Status: Active Protocol: Document 03/12/21 13:49 DCW (Rec: 03/12/21 14:25 DCW [id number]) OP-PT Subjective Patient Comments Patient Comments It's not too bad today. It feels good enough most of the time, until I forget it and try to push off on it. PT-OP-J Posture/Palpation/Skin Start: 03/03/21 17:38 Freq: Status: Active Protocol: Document 03/03/21 15:15 DCW (Rec: 03/03/21 17:54 DCW [id number]) Skin Assessment Circumference Measurement 3 Location L hand around 2nd-5th Metacarpals Measurement (Centimeters) 17.8 Comments R = 17.8 2 Location L Forearm 5 cm proximal to wrist Measurement (Centimeters) 16.9 Comments R = 15.5 1 Location L Wrist just distal to ulnar styloid process Measurement (Centimeters) 16.5 Comments R = 15.1 PT-OP-K Range of Motion Start: 03/03/21 17:38 Freq: Status: Active Protocol: Document 03/03/21 15:15 DCW (Rec: 03/03/21 17:54 DCW [id number]) Wrist Goniometric Range of Motion Wrist Left Wrist ROM WFL No Flexion Active (degrees) 27 Extension Active (degrees) 38 Ulnar Deviation Active (degrees) 30 Radial Deviation Active (degrees) 12 PT-OP-M Strength Start: 03/03/21 17:38 Freq: Status: Active Protocol: Document 03/03/21 15:15 DCW (Rec: 03/03/21 17:54 DCW [id number]) Hand Split Leather Department Supervisor/Pinch Strength Hand Dominance Hand Dominance Right Hand Strength Right Split Leather Department Supervisor (lbs) 43.33 Comments 3-trial average (40, 45, 45) Left Split Leather Department Supervisor (lbs) 20 Comments 3-trial average (20, 20, 20) PT-OP-Q Treatments Start: 03/03/21 17:38 Freq: Status: Active Protocol: Document 03/12/21 13:49 DCW (Rec: 03/12/21 14:25 DCW [id number]) Therapeutic Exercises Sitting Exercises 8 Sitting Exercise Name 4-way wrist flexion Side left Resistance Lv 2 Equipment Used T-band 7 Sitting Exercise Name Flexibar circles Side left Resistance Red 6 Sitting Exercise Name Flexi-bar twisting Side bilateral Resistance Red 5 Sitting Exercise Name Flexi-bar wrist supination/ pronation Side bilateral Resistance Red Other Exercises 1 Other Exercise Name UE Resisted side-stepping Resistance Yellow Equipment Used T-band Manual Therapy Treatment Soft Tissue Mobilization 1 Body Location Left wrist flexors & extensors Mobilization Type Sustained Pressure,Trigger Point Release Intensity/Depth Moderate Body Position Sitting Joint Mobilizations 1 Joint L Carpal mobs Grade II Body Position seated PT-OP-R Modalities Start: 03/03/21 17:38 Freq: Status: Active Protocol: Document 03/09/21 14:34 MA (Rec: 03/09/21 15:12 MA [id number]) Hot Pack/Cold Pack Treatment Cold Pack Location ice massage L wrist PT-OP-T Assessment and Plan Start: 03/03/21 17:38 Freq: Status: Active Protocol: Document 03/12/21 13:49 DCW (Rec: 03/12/21 14:25 DCW [id number]) Physical Therapy Assessment Impairments Impairments Functional Activities, Functional Mobility,Pain,ROM, Soft Tissue Mobility,Strength Goals Three Impairment Decreased ROM of left wrist flexion (27?) and extension ( 38?) Chute Operator Goal (LTG) Pt to increase wrist ROM to at least 60? with both flexion and extension in order to return to normal pre-injury activites LTG Duration 05/04/21 Two Impairment Pt exhibits swelling along left wrist and forearm Chute Operator Goal (LTG) Circumfrential measurements to be equal between left and right UEs to demonstrate elimination of post-injury edema LTG Duration 05/04/21 One Impairment Pt does not have an appropriate home exercise program Short Term Goal (STG) Pt to be independent and compliant with an appropriate HEP STG Duration 04/02/21 Assessment Summary Assessment Pt showing some improved ROM, especially following carpal mobs. Still experiencing increased soreness following every appointment, but notes it is less severe and does not last as long. Physical Therapy Plan Frequency and Duration Frequency of Treatment 2x/Week Duration of Treatment 2 months Plan of Care Start Date 03/03/21 Plan of Care End Date 05/03/21 Therapeutic Interventions Therapeutic Interventions Home Exercise Program,Joint Mobilizations,Manual Therapy, Patient/Caregiver Education, Self-Care/Home Management,Soft Tissue Mobilization, Therapeutic Exercises Modalities Cold Pack/Ice Massage,Electric Stimulation,Hot Packs, Ultrasound Next Visit Focus/Plan Next Note Type Treatment Note Next Visit Plan Wrist ROM, director of outside sales strengthening
--- NOTE | 2021-03-17 16:01 | PT.OTN ---
Current Diagnoses Pain in left wrist (03/17/21) Stiffness of left wrist, not elsewhere classified (03/17/21) Weakness (03/17/21) Colles' fracture of left radius, subsequent encounter for closed fracture with routine healing (03/17/21) Physical Therapy Treatment Note PT-OP-A Visit Information Start: 03/03/21 17:38 Freq: Status: Active Protocol: Document 03/17/21 15:20 DCW (Rec: 03/17/21 16:01 DCW [id number]) Out-Patient Physical Therapy Visit Information Visit Information Visit Type Treatment Note Visit Start Time 15:20 Visit Stop Time 16:00 Total Visit Minutes 40 Visit Number 5 Number of ACID TREATER Visits 0 Evaluation Information Evaluation Date 03/03/21 PT-OP-B Current Condition Start: 03/03/21 17:38 Freq: Status: Active Protocol: Document 03/03/21 15:15 DCW (Rec: 03/03/21 17:48 DCW [id number]) Current Condition History of Current Condition Onset Date 12/31/20 Current Complaints Wrist pain and stiffness s/p distal radius fracture History of Current Condition Pt is a 65 year old female presenting to skilled therapy two months s/p left distal radius fracture. Pt notes on , she was out in her garden, trying to yank on a 100' long hose, and tripped over a stone, landing on her outstretched hard on a bed of river rocks. Pt reports she was in a cast until 02/10/21, and was then wearing a brace, which she has since removed because it was causing her skin to break out. Pt reports any sort of pushing down or leaning on her arm causes increased pain, as well as supination/pronation or wrist flexion. Pt notes that the ortho she has been seeing for her arm told her she could lift nothing heavier than a coffee cup, but admits that I've already broken that rule a lot. Treatment Goals Patient/Caregiver Goals Pt's goal is to return to riding her bike. PT-OP-C Subjective Start: 03/03/21 17:38 Freq: Status: Active Protocol: Document 03/17/21 15:20 DCW (Rec: 03/17/21 16:01 DCW [id number]) OP-PT Subjective Patient Comments Patient Comments It's a little bit sore, but I 've been out in the garden, using it more. PT-OP-J Posture/Palpation/Skin Start: 03/03/21 17:38 Freq: Status: Active Protocol: Document 03/03/21 15:15 DCW (Rec: 03/03/21 17:54 DCW [id number]) Skin Assessment Circumference Measurement 3 Location L hand around 2nd-5th Metacarpals Measurement (Centimeters) 17.8 Comments R = 17.8 2 Location L Forearm 5 cm proximal to wrist Measurement (Centimeters) 16.9 Comments R = 15.5 1 Location L Wrist just distal to ulnar styloid process Measurement (Centimeters) 16.5 Comments R = 15.1 PT-OP-K Range of Motion Start: 03/03/21 17:38 Freq: Status: Active Protocol: Document 03/03/21 15:15 DCW (Rec: 03/03/21 17:54 DCW [id number]) Wrist Goniometric Range of Motion Wrist Left Wrist ROM WFL No Flexion Active (degrees) 27 Extension Active (degrees) 38 Ulnar Deviation Active (degrees) 30 Radial Deviation Active (degrees) 12 PT-OP-M Strength Start: 03/03/21 17:38 Freq: Status: Active Protocol: Document 03/03/21 15:15 DCW (Rec: 03/03/21 17:54 DCW [id number]) Hand Active Directory Systems Administrator/Pinch Strength Hand Dominance Hand Dominance Right Hand Strength Right Active Directory Systems Administrator (lbs) 43.33 Comments 3-trial average (40, 45, 45) Left Active Directory Systems Administrator (lbs) 20 Comments 3-trial average (20, 20, 20) PT-OP-Q Treatments Start: 03/03/21 17:38 Freq: Status: Active Protocol: Document 03/17/21 15:20 DCW (Rec: 03/17/21 16:01 DCW [id number]) Therapeutic Exercises Sitting Exercises 8 Sitting Exercise Name 4-way wrist flexion Side left Resistance Lv 2 Equipment Used T-band 7 Sitting Exercise Name Flexibar circles Side left Resistance Red 6 Sitting Exercise Name Flexi-bar twisting Side bilateral Resistance Red 5 Sitting Exercise Name Flexi-bar wrist supination/ pronation Side bilateral Resistance Red Manual Therapy Treatment Soft Tissue Mobilization 1 Body Location Left wrist flexors & extensors Mobilization Type Sustained Pressure,Trigger Point Release Intensity/Depth Moderate Body Position Sitting Joint Mobilizations 1 Joint L Carpal mobs Grade II Body Position seated Other Other Manual Treatments Wrist PROM PT-OP-R Modalities Start: 03/03/21 17:38 Freq: Status: Active Protocol: Document 03/09/21 14:34 MA (Rec: 03/09/21 15:12 MA [id number]) Hot Pack/Cold Pack Treatment Cold Pack Location ice massage L wrist PT-OP-T Assessment and Plan Start: 03/03/21 17:38 Freq: Status: Active Protocol: Document 03/17/21 15:20 DCW (Rec: 03/17/21 16:01 DCW [id number]) Physical Therapy Assessment Impairments Impairments Functional Activities, Functional Mobility,Pain,ROM, Soft Tissue Mobility,Strength Goals Three Impairment Decreased ROM of left wrist flexion (27?) and extension ( 38?) [facility] Goal (LTG) Pt to increase wrist ROM to at least 60? with both flexion and extension in order to return to normal pre-injury activites LTG Duration 05/04/21 Two Impairment Pt exhibits swelling along left wrist and forearm [facility] Goal (LTG) Circumfrential measurements to be equal between left and right UEs to demonstrate elimination of post-injury edema LTG Duration 05/04/21 One Impairment Pt does not have an appropriate home exercise program Short Term Goal (STG) Pt to be independent and compliant with an appropriate HEP STG Duration 04/02/21 Assessment Summary Assessment Pt continues to improve with range of motion, showing increased mobility with less tenderness. Physical Therapy Plan Frequency and Duration Frequency of Treatment 2x/Week Duration of Treatment 2 months Plan of Care Start Date 03/03/21 Plan of Care End Date 05/03/21 Therapeutic Interventions Therapeutic Interventions Home Exercise Program,Joint Mobilizations,Manual Therapy, Patient/Caregiver Education, Self-Care/Home Management,Soft Tissue Mobilization, Therapeutic Exercises Modalities Cold Pack/Ice Massage,Electric Stimulation,Hot Packs, Ultrasound Next Visit Focus/Plan Next Note Type Treatment Note Next Visit Plan Wrist ROM, car shunter strengthening
--- NOTE | 2021-03-19 14:26 | PT.OTN ---
Current Diagnoses Pain in left wrist (03/19/21) Stiffness of left wrist, not elsewhere classified (03/19/21) Weakness (03/19/21) Colles' fracture of left radius, subsequent encounter for closed fracture with routine healing (03/19/21) Physical Therapy Treatment Note PT-OP-A Visit Information Start: 03/03/21 17:38 Freq: Status: Active Protocol: Document 03/19/21 13:50 DCW (Rec: 03/19/21 14:26 DCW [id number]) Out-Patient Physical Therapy Visit Information Visit Information Visit Type Treatment Note Visit Start Time 13:50 Visit Stop Time 14:30 Total Visit Minutes 40 Visit Number 6 Number of INSPECTOR WREATH Visits 0 Evaluation Information Evaluation Date 03/03/21 PT-OP-B Current Condition Start: 03/03/21 17:38 Freq: Status: Active Protocol: Document 03/03/21 15:15 DCW (Rec: 03/03/21 17:48 DCW [id number]) Current Condition History of Current Condition Onset Date 12/31/20 Current Complaints Wrist pain and stiffness s/p distal radius fracture History of Current Condition Pt is a 65 year old female presenting to skilled therapy two months s/p left distal radius fracture. Pt notes on , she was out in her garden, trying to yank on a 100' long hose, and tripped over a stone, landing on her outstretched hard on a bed of river rocks. Pt reports she was in a cast until 02/10/21, and was then wearing a brace, which she has since removed because it was causing her skin to break out. Pt reports any sort of pushing down or leaning on her arm causes increased pain, as well as supination/pronation or wrist flexion. Pt notes that the ortho she has been seeing for her arm told her she could lift nothing heavier than a coffee cup, but admits that I've already broken that rule a lot. Treatment Goals Patient/Caregiver Goals Pt's goal is to return to riding her bike. PT-OP-C Subjective Start: 03/03/21 17:38 Freq: Status: Active Protocol: Document 03/19/21 13:50 DCW (Rec: 03/19/21 14:26 DCW [id number]) OP-PT Subjective Patient Comments Patient Comments I was really sore yesterday, I don't know if it was from my Tuesday apointment, or I was doing a lot of cooking and chopping that night. PT-OP-J Posture/Palpation/Skin Start: 03/03/21 17:38 Freq: Status: Active Protocol: Document 03/03/21 15:15 DCW (Rec: 03/03/21 17:54 DCW [id number]) Skin Assessment Circumference Measurement 3 Location L hand around 2nd-5th Metacarpals Measurement (Centimeters) 17.8 Comments R = 17.8 2 Location L Forearm 5 cm proximal to wrist Measurement (Centimeters) 16.9 Comments R = 15.5 1 Location L Wrist just distal to ulnar styloid process Measurement (Centimeters) 16.5 Comments R = 15.1 PT-OP-K Range of Motion Start: 03/03/21 17:38 Freq: Status: Active Protocol: Document 03/03/21 15:15 DCW (Rec: 03/03/21 17:54 DCW [id number]) Wrist Goniometric Range of Motion Wrist Left Wrist ROM WFL No Flexion Active (degrees) 27 Extension Active (degrees) 38 Ulnar Deviation Active (degrees) 30 Radial Deviation Active (degrees) 12 PT-OP-M Strength Start: 03/03/21 17:38 Freq: Status: Active Protocol: Document 03/03/21 15:15 DCW (Rec: 03/03/21 17:54 DCW [id number]) Hand Reference Investigator/Pinch Strength Hand Dominance Hand Dominance Right Hand Strength Right Reference Investigator (lbs) 43.33 Comments 3-trial average (40, 45, 45) Left Reference Investigator (lbs) 20 Comments 3-trial average (20, 20, 20) PT-OP-Q Treatments Start: 03/03/21 17:38 Freq: Status: Active Protocol: Document 03/19/21 13:50 DCW (Rec: 03/19/21 14:26 DCW [id number]) Therapeutic Exercises Sitting Exercises 8 Sitting Exercise Name 4-way wrist flexion Side left Resistance Lv 2 Equipment Used T-band 7 Sitting Exercise Name Flexibar circles Side left Resistance Red 6 Sitting Exercise Name Flexi-bar twisting Side bilateral Resistance Red 5 Sitting Exercise Name Flexi-bar wrist supination/ pronation Side bilateral Resistance Red Manual Therapy Treatment Soft Tissue Mobilization 1 Body Location Left wrist flexors & extensors Mobilization Type Sustained Pressure,Trigger Point Release Intensity/Depth Moderate Body Position Sitting Joint Mobilizations 1 Joint L Carpal mobs Grade II Body Position seated Other Other Manual Treatments Wrist PROM PT-OP-R Modalities Start: 03/03/21 17:38 Freq: Status: Active Protocol: Document 03/09/21 14:34 MA (Rec: 03/09/21 15:12 MA [id number]) Hot Pack/Cold Pack Treatment Cold Pack Location ice massage L wrist PT-OP-T Assessment and Plan Start: 03/03/21 17:38 Freq: Status: Active Protocol: Document 03/19/21 13:50 DCW (Rec: 03/19/21 14:26 DCW [id number]) Physical Therapy Assessment Impairments Impairments Functional Activities, Functional Mobility,Pain,ROM, Soft Tissue Mobility,Strength Goals Three Impairment Decreased ROM of left wrist flexion (27?) and extension ( 38?) [facility] Goal (LTG) Pt to increase wrist ROM to at least 60? with both flexion and extension in order to return to normal pre-injury activites LTG Duration 05/04/21 Two Impairment Pt exhibits swelling along left wrist and forearm [facility] Goal (LTG) Circumfrential measurements to be equal between left and right UEs to demonstrate elimination of post-injury edema LTG Duration 05/04/21 One Impairment Pt does not have an appropriate home exercise program Short Term Goal (STG) Pt to be independent and compliant with an appropriate HEP STG Duration 04/02/21 Assessment Summary Assessment Pt showing good ROM, RD/UD improved to 20/35 respectively , with wrist flexion to 50 and extension to 60. Physical Therapy Plan Frequency and Duration Frequency of Treatment 2x/Week Duration of Treatment 2 months Plan of Care Start Date 03/03/21 Plan of Care End Date 05/03/21 Therapeutic Interventions Therapeutic Interventions Home Exercise Program,Joint Mobilizations,Manual Therapy, Patient/Caregiver Education, Self-Care/Home Management,Soft Tissue Mobilization, Therapeutic Exercises Modalities Cold Pack/Ice Massage,Electric Stimulation,Hot Packs, Ultrasound Next Visit Focus/Plan Next Note Type Treatment Note Next Visit Plan Wrist ROM, certified dental assistant strengthening
--- NOTE | 2021-03-24 17:01 | PT.OTN ---
Current Diagnoses Pain in left wrist (03/24/21) Stiffness of left wrist, not elsewhere classified (03/24/21) Weakness (03/24/21) Colles' fracture of left radius, subsequent encounter for closed fracture with routine healing (03/24/21) Physical Therapy Treatment Note PT-OP-A Visit Information Start: 03/03/21 17:38 Freq: Status: Active Protocol: Document 03/24/21 16:00 DCW (Rec: 03/24/21 17:01 DCW [id number]) Out-Patient Physical Therapy Visit Information Visit Information Visit Type Treatment Note Visit Start Time 16:00 Visit Stop Time 16:45 Total Visit Minutes 45 Visit Number 7 Number of [employer]IDENT [place] Visits 0 Evaluation Information Evaluation Date 03/03/21 PT-OP-B Current Condition Start: 03/03/21 17:38 Freq: Status: Active Protocol: Document 03/03/21 15:15 DCW (Rec: 03/03/21 17:48 DCW [id number]) Current Condition History of Current Condition Onset Date 12/31/20 Current Complaints Wrist pain and stiffness s/p distal radius fracture History of Current Condition Pt is a 65 year old female presenting to skilled therapy two months s/p left distal radius fracture. Pt notes on , she was out in her garden, trying to yank on a 100' long hose, and tripped over a stone, landing on her outstretched hard on a bed of river rocks. Pt reports she was in a cast until 02/10/21, and was then wearing a brace, which she has since removed because it was causing her skin to break out. Pt reports any sort of pushing down or leaning on her arm causes increased pain, as well as supination/pronation or wrist flexion. Pt notes that the ortho she has been seeing for her arm told her she could lift nothing heavier than a coffee cup, but admits that I've already broken that rule a lot. Treatment Goals Patient/Caregiver Goals Pt's goal is to return to riding her bike. PT-OP-C Subjective Start: 03/03/21 17:38 Freq: Status: Active Protocol: Document 03/24/21 16:00 DCW (Rec: 03/24/21 17:01 DCW [id number]) OP-PT Subjective Patient Comments Patient Comments It's still sore all the time, but I am using it PT-OP-J Posture/Palpation/Skin Start: 03/03/21 17:38 Freq: Status: Active Protocol: Document 03/03/21 15:15 DCW (Rec: 03/03/21 17:54 CTW [id number]) Skin Assessment Circumference Measurement 3 Location L hand around 2nd-5th Metacarpals Measurement (Centimeters) 17.8 Comments R = 17.8 2 Location L Forearm 5 cm proximal to wrist Measurement (Centimeters) 16.9 Comments R = 15.5 1 Location L Wrist just distal to ulnar styloid process Measurement (Centimeters) 16.5 Comments R = 15.1 PT-OP-K Range of Motion Start: 03/03/21 17:38 Freq: Status: Active Protocol: Document 03/03/21 15:15 DCW (Rec: 03/03/21 17:54 DCW [id number]) Wrist Goniometric Range of Motion Wrist Left Wrist ROM WFL No Flexion Active (degrees) 27 Extension Active (degrees) 38 Ulnar Deviation Active (degrees) 30 Radial Deviation Active (degrees) 12 PT-OP-M Strength Start: 03/03/21 17:38 Freq: Status: Active Protocol: Document 03/03/21 15:15 DCW (Rec: 03/03/21 17:54 [facility] [id number]) Hand Rehab Spec/Pinch Strength Hand Dominance Hand Dominance Right Hand Strength Right Rehab Spec (lbs) 43.33 Comments 3-trial average (40, 45, 45) Left Rehab Spec (lbs) 20 Comments 3-trial average (20, 20, 20) PT-OP-Q Treatments Start: 03/03/21 17:38 Freq: Status: Active Protocol: Document 03/24/21 16:00 DCW (Rec: 03/24/21 17:01 DCW [id number]) Therapeutic Exercises Sitting Exercises 8 Sitting Exercise Name 4-way wrist flexion Side left Resistance Lv 2 Equipment Used T-band 7 Sitting Exercise Name Flexibar circles Side left Resistance Red 6 Sitting Exercise Name Flexi-bar twisting Side bilateral Resistance Red 5 Sitting Exercise Name Flexi-bar wrist supination/ pronation Side bilateral Resistance Red Manual Therapy Treatment Soft Tissue Mobilization 1 Body Location Left wrist flexors & extensors Mobilization Type Sustained Pressure,Trigger Point Release Intensity/Depth Moderate Body Position Sitting Joint Mobilizations 1 Joint L Carpal mobs Grade II Body Position seated Other Other Manual Treatments Wrist PROM PT-OP-R Modalities Start: 03/03/21 17:38 Freq: Status: Active Protocol: Document 03/09/21 14:34 MA (Rec: 03/09/21 15:12 MA [id number]) Hot Pack/Cold Pack Treatment Cold Pack Location ice massage L wrist PT-OP-T Assessment and Plan Start: 03/03/21 17:38 Freq: Status: Active Protocol: Document 03/24/21 16:00 DCW (Rec: 03/24/21 17:01 DCW [id number]) Physical Therapy Assessment Impairments Impairments Functional Activities, Functional Mobility,Pain,ROM, Soft Tissue Mobility,Strength Goals Three Impairment Decreased ROM of left wrist flexion (27?) and extension ( 38?) [facility] Goal (LTG) Pt to increase wrist ROM to at least 60? with both flexion and extension in order to return to normal pre-injury activites LTG Duration 05/04/21 Two Impairment Pt exhibits swelling along left wrist and forearm Library Technical Assistant Goal (LTG) Circumfrential measurements to be equal between left and right UEs to demonstrate elimination of post-injury edema LTG Duration 05/04/21 One Impairment Pt does not have an appropriate home exercise program Short Term Goal (STG) Pt to be independent and compliant with an appropriate HEP STG Duration 04/02/21 Assessment Summary Assessment Increased resistance and HEP today, as pt is doing better with ROM. Most of remaining edema is along CMC joint at thumb, where pt has known severe OA. Physical Therapy Plan Frequency and Duration Frequency of Treatment 2x/Week Duration of Treatment 2 months Plan of Care Start Date 03/03/21 Plan of Care End Date 05/03/21 Therapeutic Interventions Therapeutic Interventions Home Exercise Program,Joint Mobilizations,Manual Therapy, Patient/Caregiver Education, Self-Care/Home Management,Soft Tissue Mobilization, Therapeutic Exercises Modalities Cold Pack/Ice Massage,Electric Stimulation,Hot Packs, Ultrasound Next Visit Focus/Plan Next Note Type Treatment Note Next Visit Plan Wrist ROM, agronomy location manager strengthening
--- NOTE | 2021-03-27 15:27 | PT.OTN ---
Current Diagnoses Pain in left wrist (03/27/21) Stiffness of left wrist, not elsewhere classified (03/27/21) Weakness (03/27/21) Colles' fracture of left radius, subsequent encounter for closed fracture with routine healing (03/27/21) Physical Therapy Treatment Note PT-OP-A Visit Information Start: 03/03/21 17:38 Freq: Status: Active Protocol: Document 03/27/21 14:37 SP (Rec: 03/27/21 15:54 SP [id number]) Out-Patient Physical Therapy Visit Information Visit Information Visit Type Treatment Note Visit Start Time 14:37 Visit Stop Time 15:27 Total Visit Minutes 50 Visit Number 8 Number of RN WOUND Visits 1 Evaluation Information Evaluation Date 03/03/21 PT-OP-B Current Condition Start: 03/03/21 17:38 Freq: Status: Active Protocol: Document 03/03/21 15:15 DCW (Rec: 03/03/21 17:48 DCW [id number]) Current Condition History of Current Condition Onset Date 12/31/20 Current Complaints Wrist pain and stiffness s/p distal radius fracture History of Current Condition Pt is a 65 year old female presenting to skilled therapy two months s/p left distal radius fracture. Pt notes on , she was out in her garden, trying to yank on a 100' long hose, and tripped over a stone, landing on her outstretched hard on a bed of river rocks. Pt reports she was in a cast until 02/10/21, and was then wearing a brace, which she has since removed because it was causing her skin to break out. Pt reports any sort of pushing down or leaning on her arm causes increased pain, as well as supination/pronation or wrist flexion. Pt notes that the ortho she has been seeing for her arm told her she could lift nothing heavier than a coffee cup, but admits that I've already broken that rule a lot. Treatment Goals Patient/Caregiver Goals Pt's goal is to return to riding her bike. PT-OP-C Subjective Start: 03/03/21 17:38 Freq: Status: Active Protocol: Document 03/27/21 14:37 SP (Rec: 03/27/21 15:54 SP [id number]) OP-PT Subjective Patient Comments Patient Comments Pt stated compliant with HEP. Pt stated sore after last tx. Reports less swelling but little nodule/ ropy spot like over posterior distal radius didn't notice before. Pt reports feeling L extensor carpi ulnaris and extensor digit minimi muscles get irritated maybe over worked most during extension movements. PT-OP-J Posture/Palpation/Skin Start: 03/03/21 17:38 Freq: Status: Active Protocol: Document 03/03/21 15:15 DCW (Rec: 03/03/21 17:54 DCW [id number]) Skin Assessment Circumference Measurement 3 Location L hand around 2nd-5th Metacarpals Measurement (Centimeters) 17.8 Comments R = 17.8 2 Location L Forearm 5 cm proximal to wrist Measurement (Centimeters) 16.9 Comments R = 15.5 1 Location L Wrist just distal to ulnar styloid process Measurement (Centimeters) 16.5 Comments R = 15.1 PT-OP-K Range of Motion Start: 03/03/21 17:38 Freq: Status: Active Protocol: Document 03/03/21 15:15 DCW (Rec: 03/03/21 17:54 DCW [id number]) Wrist Goniometric Range of Motion Wrist Left Wrist ROM WFL No Flexion Active (degrees) 27 Extension Active (degrees) 38 Ulnar Deviation Active (degrees) 30 Radial Deviation Active (degrees) 12 PT-OP-M Strength Start: 03/03/21 17:38 Freq: Status: Active Protocol: Document 03/03/21 15:15 DCW (Rec: 03/03/21 17:54 DCW [id number]) Hand Casing Crew/Pinch Strength Hand Dominance Hand Dominance Right Hand Strength Right Casing Crew (lbs) 43.33 Comments 3-trial average (40, 45, 45) Left Casing Crew (lbs) 20 Comments 3-trial average (20, 20, 20) PT-OP-Q Treatments Start: 03/03/21 17:38 Freq: Status: Active Protocol: Document 03/27/21 14:37 SP (Rec: 03/27/21 15:54 SP [id number]) Therapeutic Exercises Sitting Exercises 8 Sitting Exercise Name 4-way wrist flexion Side left Resistance Lv 2 Equipment Used T-band Reps/Minutes x15 each 7 Sitting Exercise Name Circles (ulnar/radial/pron/ supination combinations) Side left Resistance Red flex bar Equipment Used RHYTHMIC STABILIZATION Reps/Minutes x15 Comments attempted with hammer for home carryover, tiring fair demo, challenge coord 6 Sitting Exercise Name twisting Side bilateral Resistance Red flexibar Reps/Minutes x15 Comments good response, cued elbows bend closer to body 5 Sitting Exercise Name wrist supination/pronation Side bilateral Resistance Red flexibar Reps/Minutes x15 Comments used hammer for assumulation for home application resistance 4 Sitting Exercise Name finger extension Side left Resistance Tb #2 Reps/Minutes x10 3 Sitting Exercise Name work station support specialist squeeze, lumbrical gripping, individual pinching Side left Resistance red putty Reps/Minutes x10 each Comments good challenge response, cued forward supported on table Manual Therapy Treatment Soft Tissue Mobilization 1 Body Location Left wrist flexors & extensors Mobilization Type Myofascial Release,Sustained Pressure,Trigger Point Release Intensity/Depth Moderate Body Position Sitting Comments myofacial superior glide with active flex/ ext Joint Mobilizations 2 Joint L distal ulna, radius mob Grade I Body Position Sitting Comments AP 1 Joint L Carpal mobs Grade II Body Position seated Comments AP, med, lat Other Other Manual Treatments Wrist PROM, contract relax pron/ sup with instruction on self application PT-OP-R Modalities Start: 03/03/21 17:38 Freq: Status: Active Protocol: Document 03/09/21 14:34 MA (Rec: 03/09/21 15:12 MA [id number]) Hot Pack/Cold Pack Treatment Cold Pack Location ice massage L wrist PT-OP-T Assessment and Plan Start: 03/03/21 17:38 Freq: Status: Active Protocol: Document 03/27/21 14:37 SP (Rec: 03/27/21 15:54 SP [id number]) Physical Therapy Assessment Goals Three Impairment Decreased ROM of left wrist flexion (27?) and extension ( 38?) Long-Term Goal (LTG) Pt to increase wrist ROM to at least 60? with both flexion and extension in order to return to normal pre-injury activites LTG Duration 05/04/21 Two Impairment Pt exhibits swelling along left wrist and forearm Long-Term Goal (LTG) Circumfrential measurements to be equal between left and right UEs to demonstrate elimination of post-injury edema LTG Duration 05/04/21 One Impairment Pt does not have an appropriate home exercise program Short Term Goal (STG) Pt to be independent and compliant with an appropriate HEP STG Duration 04/02/21 Assessment Summary Assessment Pt able to increase finger extension use of #2 TB, tiring response to initiated finger gripping with theraputty and rhythmic stabilization using hammer for self carryover using flexibar in PT. Physical Therapy Plan Frequency and Duration Frequency of Treatment 2x/Week Duration of Treatment 2 months Plan of Care Start Date 03/03/21 Plan of Care End Date 05/03/21 Therapeutic Interventions Therapeutic Interventions Home Exercise Program,Joint Mobilizations,Manual Therapy, Patient/Caregiver Education, Self-Care/Home Management,Soft Tissue Mobilization, Therapeutic Exercises Modalities Cold Pack/Ice Massage,Electric Stimulation,Hot Packs, Ultrasound Next Visit Focus/Plan Next Note Type Treatment Note Next Visit Plan Assess response to manual and initiated use of hammer, TB finger extension and theraputty finger flexion/ lumbrical gripping. POC: Wrist ROM, work station support specialist strengthening
--- NOTE | 2021-03-31 16:47 | PT.OTN ---
Current Diagnoses Pain in left wrist (03/31/21) Stiffness of left wrist, not elsewhere classified (03/31/21) Weakness (03/31/21) Colles' fracture of left radius, subsequent encounter for closed fracture with routine healing (03/31/21) Physical Therapy Treatment Note PT-OP-A Visit Information Start: 03/03/21 17:38 Freq: Status: Active Protocol: Document 03/31/21 16:04 DCW (Rec: 03/31/21 16:46 DCW [id number]) Out-Patient Physical Therapy Visit Information Visit Information Visit Type Treatment Note Visit Start Time 16:04 Visit Stop Time 16:45 Total Visit Minutes 41 Visit Number 9 Number of WRIST LINER Visits 0 Evaluation Information Evaluation Date 03/03/21 PT-OP-B Current Condition Start: 03/03/21 17:38 Freq: Status: Active Protocol: Document 03/03/21 15:15 DCW (Rec: 03/03/21 17:48 DCW [id number]) Current Condition History of Current Condition Onset Date 12/31/20 Current Complaints Wrist pain and stiffness s/p distal radius fracture History of Current Condition Pt is a 65 year old female presenting to skilled therapy two months s/p left distal radius fracture. Pt notes on , she was out in her garden, trying to yank on a 100' long hose, and tripped over a stone, landing on her outstretched hard on a bed of river rocks. Pt reports she was in a cast until 02/10/21, and was then wearing a brace, which she has since removed because it was causing her skin to break out. Pt reports any sort of pushing down or leaning on her arm causes increased pain, as well as supination/pronation or wrist flexion. Pt notes that the ortho she has been seeing for her arm told her she could lift nothing heavier than a coffee cup, but admits that I've already broken that rule a lot. Treatment Goals Patient/Caregiver Goals Pt's goal is to return to riding her bike. PT-OP-C Subjective Start: 03/03/21 17:38 Freq: Status: Active Protocol: Document 03/31/21 16:04 DCW (Rec: 03/31/21 16:46 DCW [id number]) OP-PT Subjective Patient Comments Patient Comments It's just sore. I don't know if I've just been doing more, or if it's the exercises, or what. PT-OP-J Posture/Palpation/Skin Start: 03/03/21 17:38 Freq: Status: Active Protocol: Document 03/03/21 15:15 DCW (Rec: 03/03/21 17:54 OKW [id number]) Skin Assessment Circumference Measurement 3 Location L hand around 2nd-5th Metacarpals Measurement (Centimeters) 17.8 Comments R = 17.8 2 Location L Forearm 5 cm proximal to wrist Measurement (Centimeters) 16.9 Comments R = 15.5 1 Location L Wrist just distal to ulnar styloid process Measurement (Centimeters) 16.5 Comments R = 15.1 PT-OP-K Range of Motion Start: 03/03/21 17:38 Freq: Status: Active Protocol: Document 03/03/21 15:15 DCW (Rec: 03/03/21 17:54 OKW [id number]) Wrist Goniometric Range of Motion Wrist Left Wrist ROM WFL No Flexion Active (degrees) 27 Extension Active (degrees) 38 Ulnar Deviation Active (degrees) 30 Radial Deviation Active (degrees) 12 PT-OP-M Strength Start: 03/03/21 17:38 Freq: Status: Active Protocol: Document 03/03/21 15:15 DCW (Rec: 03/03/21 17:54 [facility] [id number]) Hand Hvac Sales Engineer/Pinch Strength Hand Dominance Hand Dominance Right Hand Strength Right Hvac Sales Engineer (lbs) 43.33 Comments 3-trial average (40, 45, 45) Left Hvac Sales Engineer (lbs) 20 Comments 3-trial average (20, 20, 20) PT-OP-Q Treatments Start: 03/03/21 17:38 Freq: Status: Active Protocol: Document 03/31/21 16:04 DCW (Rec: 03/31/21 16:46 DCW [id number]) Therapeutic Exercises Sitting Exercises 9 Sitting Exercise Name Pronation/Supination Side left Equipment Used Hammer 8 Sitting Exercise Name 4-way wrist flexion Side left Resistance Lv 2 Equipment Used T-band 7 Sitting Exercise Name Flexibar circles Side left Resistance Red Equipment Used RHYTHMIC STABILIZATION 6 Sitting Exercise Name Flexi-bar twisting Side bilateral Resistance Red 5 Sitting Exercise Name Flexi-bar wrist supination/ pronation Side bilateral Resistance Red Manual Therapy Treatment Soft Tissue Mobilization 1 Body Location Left wrist flexors & extensors Mobilization Type Sustained Pressure,Trigger Point Release Intensity/Depth Moderate Body Position Sitting Joint Mobilizations 2 Joint L distal ulna, radius mob Grade I Body Position Sitting Comments AP 1 Joint L Carpal mobs Grade II Body Position seated Other Other Manual Treatments Wrist PROM PT-OP-R Modalities Start: 03/03/21 17:38 Freq: Status: Active Protocol: Document 03/09/21 14:34 MA (Rec: 03/09/21 15:12 MA [id number]) Hot Pack/Cold Pack Treatment Cold Pack Location ice massage L wrist PT-OP-T Assessment and Plan Start: 03/03/21 17:38 Freq: Status: Active Protocol: Document 03/31/21 16:04 DCW (Rec: 03/31/21 16:46 DCW [id number]) Physical Therapy Assessment Impairments Impairments Functional Activities, Functional Mobility,Pain,ROM, Soft Tissue Mobility,Strength Goals Three Impairment Decreased ROM of left wrist flexion (27?) and extension ( 38?) Assisted Goal (LTG) Pt to increase wrist ROM to at least 60? with both flexion and extension in order to return to normal pre-injury activites LTG Duration 05/04/21 Two Impairment Pt exhibits swelling along left wrist and forearm Injection Operator Goal (LTG) Circumfrential measurements to be equal between left and right UEs to demonstrate elimination of post-injury edema LTG Duration 05/04/21 One Impairment Pt does not have an appropriate home exercise program Short Term Goal (STG) Pt to be independent and compliant with an appropriate HEP STG Duration 04/02/21 Assessment Summary Assessment Pt AROM improving, nearing WNL equal to right wrist. Increase weight/resistance for strengthening next visit Physical Therapy Plan Frequency and Duration Frequency of Treatment 2x/Week Duration of Treatment 2 months Plan of Care Start Date 03/03/21 Plan of Care End Date 05/03/21 Therapeutic Interventions Therapeutic Interventions Home Exercise Program,Joint Mobilizations,Manual Therapy, Patient/Caregiver Education, Self-Care/Home Management,Soft Tissue Mobilization, Therapeutic Exercises Modalities Cold Pack/Ice Massage,Electric Stimulation,Hot Packs, Ultrasound Next Visit Focus/Plan Next Note Type Treatment Note Next Visit Plan POC: Wrist ROM, robotic technician strengthening
--- NOTE | 2021-04-02 15:17 | PT.OTN ---
Current Diagnoses Pain in left wrist (04/02/21) Stiffness of left wrist, not elsewhere classified (04/02/21) Weakness (04/02/21) Colles' fracture of left radius, subsequent encounter for closed fracture with routine healing (04/02/21) Physical Therapy Treatment Note PT-OP-A Visit Information Start: 03/03/21 17:38 Freq: Status: Active Protocol: Document 04/02/21 14:30 DCW (Rec: 04/02/21 15:17 DCW [id number]) Out-Patient Physical Therapy Visit Information Visit Information Visit Type Treatment Note Visit Start Time 14:30 Visit Stop Time 15:15 Total Visit Minutes 45 Visit Number 10 Number of BUILDING CONSTRUCTION SUPERVISOR Visits 0 Evaluation Information Evaluation Date 03/03/21 PT-OP-B Current Condition Start: 03/03/21 17:38 Freq: Status: Active Protocol: Document 03/03/21 15:15 DCW (Rec: 03/03/21 17:48 DCW [id number]) Current Condition History of Current Condition Onset Date 12/31/20 Current Complaints Wrist pain and stiffness s/p distal radius fracture History of Current Condition Pt is a 65 year old female presenting to skilled therapy two months s/p left distal radius fracture. Pt notes on , she was out in her garden, trying to yank on a 100' long hose, and tripped over a stone, landing on her outstretched hard on a bed of river rocks. Pt reports she was in a cast until 02/10/21, and was then wearing a brace, which she has since removed because it was causing her skin to break out. Pt reports any sort of pushing down or leaning on her arm causes increased pain, as well as supination/pronation or wrist flexion. Pt notes that the ortho she has been seeing for her arm told her she could lift nothing heavier than a coffee cup, but admits that I've already broken that rule a lot. Treatment Goals Patient/Caregiver Goals Pt's goal is to return to riding her bike. PT-OP-C Subjective Start: 03/03/21 17:38 Freq: Status: Active Protocol: Document 04/02/21 14:30 DCW (Rec: 04/02/21 15:17 DCW [id number]) OP-PT Subjective Patient Comments Patient Comments It's getting more motion, but that doesn't mean that it doesn't hurt. PT-OP-J Posture/Palpation/Skin Start: 03/03/21 17:38 Freq: Status: Active Protocol: Document 03/03/21 15:15 DCW (Rec: 03/03/21 17:54 DCW [id number]) Skin Assessment Circumference Measurement 3 Location L hand around 2nd-5th Metacarpals Measurement (Centimeters) 17.8 Comments R = 17.8 2 Location L Forearm 5 cm proximal to wrist Measurement (Centimeters) 16.9 Comments R = 15.5 1 Location L Wrist just distal to ulnar styloid process Measurement (Centimeters) 16.5 Comments R = 15.1 PT-OP-K Range of Motion Start: 03/03/21 17:38 Freq: Status: Active Protocol: Document 03/03/21 15:15 DCW (Rec: 03/03/21 17:54 DCW [id number]) Wrist Goniometric Range of Motion Wrist Left Wrist ROM WFL No Flexion Active (degrees) 27 Extension Active (degrees) 38 Ulnar Deviation Active (degrees) 30 Radial Deviation Active (degrees) 12 PT-OP-M Strength Start: 03/03/21 17:38 Freq: Status: Active Protocol: Document 03/03/21 15:15 DCW (Rec: 03/03/21 17:54 DCW [id number]) Hand Order Takers Supervisor/Pinch Strength Hand Dominance Hand Dominance Right Hand Strength Right Order Takers Supervisor (lbs) 43.33 Comments 3-trial average (40, 45, 45) Left Order Takers Supervisor (lbs) 20 Comments 3-trial average (20, 20, 20) PT-OP-Q Treatments Start: 03/03/21 17:38 Freq: Status: Active Protocol: Document 04/02/21 14:30 DCW (Rec: 04/02/21 15:17 DCW [id number]) Therapeutic Exercises Sitting Exercises 9 Sitting Exercise Name Pronation/Supination Side left Equipment Used Hammer 7 Sitting Exercise Name Flexibar circles Side left Resistance Red Equipment Used RHYTHMIC STABILIZATION 6 Sitting Exercise Name Flexi-bar twisting Side bilateral Resistance Red 5 Sitting Exercise Name Flexi-bar wrist supination/ pronation Side bilateral Resistance Red 2 Sitting Exercise Name Wrist circles Side left Resistance 1# Manual Therapy Treatment Soft Tissue Mobilization 1 Body Location Left wrist flexors & extensors Mobilization Type Sustained Pressure,Trigger Point Release Intensity/Depth Moderate Body Position Sitting Joint Mobilizations 2 Joint L distal ulna, radius mob Grade I Body Position Sitting Comments AP 1 Joint L Carpal mobs Grade II Body Position seated Other Other Manual Treatments Wrist PROM PT-OP-R Modalities Start: 03/03/21 17:38 Freq: Status: Active Protocol: Document 03/09/21 14:34 MA (Rec: 03/09/21 15:12 MA [id number]) Hot Pack/Cold Pack Treatment Cold Pack Location ice massage L wrist PT-OP-T Assessment and Plan Start: 03/03/21 17:38 Freq: Status: Active Protocol: Document 04/02/21 14:30 DCW (Rec: 04/02/21 15:17 DCW [id number]) Physical Therapy Assessment Impairments Impairments Functional Activities, Functional Mobility,Pain,ROM, Soft Tissue Mobility,Strength Goals Three Impairment Decreased ROM of left wrist flexion (27?) and extension ( 38?) Labor Expediter Goal (LTG) Pt to increase wrist ROM to at least 60? with both flexion and extension in order to return to normal pre-injury activites LTG Duration 05/04/21 Two Impairment Pt exhibits swelling along left wrist and forearm Prison Goal (LTG) Circumfrential measurements to be equal between left and right UEs to demonstrate elimination of post-injury edema LTG Duration 05/04/21 One Impairment Pt does not have an appropriate home exercise program Short Term Goal (STG) Pt to be independent and compliant with an appropriate HEP STG Duration 04/02/21 Assessment Summary Assessment Pt feeling some improvement, noting less pain with ROM, although still frequently feels very stiff at end-range stretching. Physical Therapy Plan Frequency and Duration Frequency of Treatment 2x/Week Duration of Treatment 2 months Plan of Care Start Date 03/03/21 Plan of Care End Date 05/03/21 Therapeutic Interventions Therapeutic Interventions Home Exercise Program,Joint Mobilizations,Manual Therapy, Patient/Caregiver Education, Self-Care/Home Management,Soft Tissue Mobilization, Therapeutic Exercises Modalities Cold Pack/Ice Massage,Electric Stimulation,Hot Packs, Ultrasound Next Visit Focus/Plan Next Note Type Treatment Note Next Visit Plan POC: Wrist ROM, nat instructor strengthening
--- NOTE | 2021-04-07 15:14 | PT.OTN ---
Current Diagnoses Pain in left wrist (04/07/21) Stiffness of left wrist, not elsewhere classified (04/07/21) Weakness (04/07/21) Colles' fracture of left radius, subsequent encounter for closed fracture with routine healing (04/07/21) Physical Therapy Treatment Note PT-OP-A Visit Information Start: 03/03/21 17:38 Freq: Status: Active Protocol: Document 04/07/21 14:32 DCW (Rec: 04/07/21 15:14 DCW [id number]) Out-Patient Physical Therapy Visit Information Visit Information Visit Type Treatment Note Visit Start Time 14:32 Visit Stop Time 15:15 Total Visit Minutes 43 Visit Number 11 Number of CUSTOMER ACCOUNT EXECUTIVE Visits 0 Evaluation Information Evaluation Date 03/03/21 PT-OP-B Current Condition Start: 03/03/21 17:38 Freq: Status: Active Protocol: Document 03/03/21 15:15 DCW (Rec: 03/03/21 17:48 DCW [id number]) Current Condition History of Current Condition Onset Date 12/31/20 Current Complaints Wrist pain and stiffness s/p distal radius fracture History of Current Condition Pt is a 65 year old female presenting to skilled therapy two months s/p left distal radius fracture. Pt notes on , she was out in her garden, trying to yank on a 100' long hose, and tripped over a stone, landing on her outstretched hard on a bed of river rocks. Pt reports she was in a cast until 02/10/21, and was then wearing a brace, which she has since removed because it was causing her skin to break out. Pt reports any sort of pushing down or leaning on her arm causes increased pain, as well as supination/pronation or wrist flexion. Pt notes that the ortho she has been seeing for her arm told her she could lift nothing heavier than a coffee cup, but admits that I've already broken that rule a lot. Treatment Goals Patient/Caregiver Goals Pt's goal is to return to riding her bike. PT-OP-C Subjective Start: 03/03/21 17:38 Freq: Status: Active Protocol: Document 04/07/21 14:32 DCW (Rec: 04/07/21 15:14 DCW [id number]) OP-PT Subjective Patient Comments Patient Comments The pain isn't as bad. I'm not noticing it as much anymore. It still hurts, but it's not too bad. PT-OP-J Posture/Palpation/Skin Start: 03/03/21 17:38 Freq: Status: Active Protocol: Document 03/03/21 15:15 DCW (Rec: 03/03/21 17:54 DCW [id number]) Skin Assessment Circumference Measurement 3 Location L hand around 2nd-5th Metacarpals Measurement (Centimeters) 17.8 Comments R = 17.8 2 Location L Forearm 5 cm proximal to wrist Measurement (Centimeters) 16.9 Comments R = 15.5 1 Location L Wrist just distal to ulnar styloid process Measurement (Centimeters) 16.5 Comments R = 15.1 PT-OP-K Range of Motion Start: 03/03/21 17:38 Freq: Status: Active Protocol: Document 03/03/21 15:15 DCW (Rec: 03/03/21 17:54 DCW [id number]) Wrist Goniometric Range of Motion Wrist Left Wrist ROM WFL No Flexion Active (degrees) 27 Extension Active (degrees) 38 Ulnar Deviation Active (degrees) 30 Radial Deviation Active (degrees) 12 PT-OP-M Strength Start: 03/03/21 17:38 Freq: Status: Active Protocol: Document 03/03/21 15:15 DCW (Rec: 03/03/21 17:54 DCW [id number]) Hand Manager Non Profit/Pinch Strength Hand Dominance Hand Dominance Right Hand Strength Right Manager Non Profit (lbs) 43.33 Comments 3-trial average (40, 45, 45) Left Manager Non Profit (lbs) 20 Comments 3-trial average (20, 20, 20) PT-OP-Q Treatments Start: 03/03/21 17:38 Freq: Status: Active Protocol: Document 04/07/21 14:32 DCW (Rec: 04/07/21 15:14 DCW [id number]) Therapeutic Exercises Sitting Exercises 9 Sitting Exercise Name Pronation/Supination Side left Equipment Used Hammer 7 Sitting Exercise Name Flexibar circles Side left Resistance Red Equipment Used RHYTHMIC STABILIZATION 6 Sitting Exercise Name Flexi-bar twisting Side bilateral Resistance Red 5 Sitting Exercise Name Flexi-bar wrist supination/ pronation Side bilateral Resistance Red 2 Sitting Exercise Name Wrist circles Side left Resistance 2# Manual Therapy Treatment Soft Tissue Mobilization 1 Body Location Left wrist flexors & extensors Mobilization Type Sustained Pressure,Trigger Point Release Intensity/Depth Moderate Body Position Sitting Joint Mobilizations 2 Joint L distal ulna, radius mob Grade I Body Position Sitting Comments AP 1 Joint L Carpal mobs Grade II Body Position seated Other Other Manual Treatments Wrist PROM PT-OP-R Modalities Start: 03/03/21 17:38 Freq: Status: Active Protocol: Document 03/09/21 14:34 MA (Rec: 03/09/21 15:12 MA [id number]) Hot Pack/Cold Pack Treatment Cold Pack Location ice massage L wrist PT-OP-T Assessment and Plan Start: 03/03/21 17:38 Freq: Status: Active Protocol: Document 04/07/21 14:32 DCW (Rec: 04/07/21 15:14 DCW [id number]) Physical Therapy Assessment Impairments Impairments Functional Activities, Functional Mobility,Pain,ROM, Soft Tissue Mobility,Strength Goals Three Impairment Decreased ROM of left wrist flexion (27?) and extension ( 38?) Jail Goal (LTG) Pt to increase wrist ROM to at least 60? with both flexion and extension in order to return to normal pre-injury activites LTG Duration 05/04/21 Two Impairment Pt exhibits swelling along left wrist and forearm Jail Goal (LTG) Circumfrential measurements to be equal between left and right UEs to demonstrate elimination of post-injury edema LTG Duration 05/04/21 One Impairment Pt does not have an appropriate home exercise program Short Term Goal (STG) Pt to be independent and compliant with an appropriate HEP STG Duration 04/02/21 Assessment Summary Assessment Pt happy at the moment with her current level of function and ROM, feels that she can probably progress to independent HEP to continue working on strengthening, will likely overview HEP next visit, and then discharge. Physical Therapy Plan Frequency and Duration Frequency of Treatment 2x/Week Duration of Treatment 2 months Plan of Care Start Date 03/03/21 Plan of Care End Date 05/03/21 Therapeutic Interventions Therapeutic Interventions Home Exercise Program,Joint Mobilizations,Manual Therapy, Patient/Caregiver Education, Self-Care/Home Management,Soft Tissue Mobilization, Therapeutic Exercises Modalities Cold Pack/Ice Massage,Electric Stimulation,Hot Packs, Ultrasound Next Visit Focus/Plan Next Note Type Discharge Summary Next Visit Plan HEP
--- NOTE | 2021-04-09 16:47 | PT.OTN ---
Current Diagnoses Pain in left wrist (04/09/21) Stiffness of left wrist, not elsewhere classified (04/09/21) Weakness (04/09/21) Colles' fracture of left radius, subsequent encounter for closed fracture with routine healing (04/09/21) Physical Therapy Treatment Note PT-OP-A Visit Information Start: 03/03/21 17:38 Freq: Status: Active Protocol: Document 04/09/21 16:00 DCW (Rec: 04/09/21 16:38 DCW [id number]) Out-Patient Physical Therapy Visit Information Visit Information Visit Type Treatment Note Visit Start Time 16:00 Visit Stop Time 16:45 Total Visit Minutes 45 Visit Number 12 Number of ADJUNCT PHYSICAL EDUCATION INSTRUCTOR Visits 0 Evaluation Information Evaluation Date 03/03/21 PT-OP-B Current Condition Start: 03/03/21 17:38 Freq: Status: Active Protocol: Document 03/03/21 15:15 DCW (Rec: 03/03/21 17:48 DCW [id number]) Current Condition History of Current Condition Onset Date 12/31/20 Current Complaints Wrist pain and stiffness s/p distal radius fracture History of Current Condition Pt is a 65 year old female presenting to skilled therapy two months s/p left distal radius fracture. Pt notes on , she was out in her garden, trying to yank on a 100' long hose, and tripped over a stone, landing on her outstretched hard on a bed of river rocks. Pt reports she was in a cast until 02/10/21, and was then wearing a brace, which she has since removed because it was causing her skin to break out. Pt reports any sort of pushing down or leaning on her arm causes increased pain, as well as supination/pronation or wrist flexion. Pt notes that the ortho she has been seeing for her arm told her she could lift nothing heavier than a coffee cup, but admits that I've already broken that rule a lot. Treatment Goals Patient/Caregiver Goals Pt's goal is to return to riding her bike. PT-OP-C Subjective Start: 03/03/21 17:38 Freq: Status: Active Protocol: Document 04/09/21 16:00 DCW (Rec: 04/09/21 16:38 DCW [id number]) OP-PT Subjective Patient Comments Patient Comments My wrist is pretty sore, but the rest of me is good. PT-OP-J Posture/Palpation/Skin Start: 03/03/21 17:38 Freq: Status: Active Protocol: Document 04/09/21 16:00 DCW (Rec: 04/09/21 16:45 DCW [id number]) Skin Assessment Circumference Measurement 3 Location L hand around 2nd-5th Metacarpals Measurement (Centimeters) 17.8 Comments R = 17.8 2 Location L Forearm 5 cm proximal to wrist Measurement (Centimeters) 15.7 Comments R = 15.5 1 Location L Wrist just distal to ulnar styloid process Measurement (Centimeters) 15.3 Comments R = 15.1 PT-OP-K Range of Motion Start: 03/03/21 17:38 Freq: Status: Active Protocol: Document 04/09/21 16:00 DCW (Rec: 04/09/21 16:45 DCW [id number]) Wrist Goniometric Range of Motion Wrist Left Flexion Active (degrees) 50 Extension Active (degrees) 65 Ulnar Deviation Active (degrees) 40 Radial Deviation Active (degrees) 20 PT-OP-M Strength Start: 03/03/21 17:38 Freq: Status: Active Protocol: Document 04/09/21 16:00 DCW (Rec: 04/09/21 16:45 DCW [id number]) Hand Voice Teacher/Pinch Strength Hand Strength Left Voice Teacher (lbs) 40 PT-OP-Q Treatments Start: 03/03/21 17:38 Freq: Status: Active Protocol: Document 04/09/21 16:00 DCW (Rec: 04/09/21 16:38 DCW [id number]) Therapeutic Exercises Sitting Exercises 9 Sitting Exercise Name Pronation/Supination Side left Equipment Used Hammer 7 Sitting Exercise Name Flexibar circles Side left Resistance Red Equipment Used RHYTHMIC STABILIZATION 6 Sitting Exercise Name Flexi-bar twisting Side bilateral Resistance Red 5 Sitting Exercise Name Flexi-bar wrist supination/ pronation Side bilateral Resistance Red 2 Sitting Exercise Name Wrist circles Side left Resistance 2# Manual Therapy Treatment Soft Tissue Mobilization 1 Body Location Left wrist flexors & extensors Mobilization Type Sustained Pressure,Trigger Point Release Intensity/Depth Moderate Body Position Sitting Joint Mobilizations 2 Joint L distal ulna, radius mob Grade I Body Position Sitting Comments AP 1 Joint L Carpal mobs Grade II Body Position seated Other Other Manual Treatments Wrist PROM PT-OP-R Modalities Start: 03/03/21 17:38 Freq: Status: Active Protocol: Document 03/09/21 14:34 MA (Rec: 03/09/21 15:12 MA [id number]) Hot Pack/Cold Pack Treatment Cold Pack Location ice massage L wrist PT-OP-T Assessment and Plan Start: 03/03/21 17:38 Freq: Status: Active Protocol: Document 04/09/21 16:00 DCW (Rec: 04/09/21 16:47 DCW [id number]) Physical Therapy Assessment Impairments Impairments Functional Activities, Functional Mobility,Pain,ROM, Soft Tissue Mobility,Strength Goals Three Impairment Decreased ROM of left wrist flexion (27?) and extension ( 38?) Prison Goal (LTG) Pt to increase wrist ROM to at least 60? with both flexion and extension in order to return to normal pre-injury activites LTG Duration Nearly met, 50? flex, 65? ext Two Impairment Pt exhibits swelling along left wrist and forearm Prison Goal (LTG) Circumfrential measurements to be equal between left and right UEs to demonstrate elimination of post-injury edema LTG Duration Met One Impairment Pt does not have an appropriate home exercise program Short Term Goal (STG) Pt to be independent and compliant with an appropriate HEP STG Duration Met Progress Towards Goals Progress Towards Goals Goals Met Assessment Summary Assessment Pt has met nearly all goals, feels comfortable with her level of function, will continue with independent HEP to improve strength asnd mobility. PT appropriate to discharge at this time. Physical Therapy Plan Frequency and Duration Frequency of Treatment 2x/Week Duration of Treatment 2 months Plan of Care Start Date 03/03/21 Plan of Care End Date 05/03/21 Therapeutic Interventions Therapeutic Interventions Home Exercise Program,Joint Mobilizations,Manual Therapy, Patient/Caregiver Education, Self-Care/Home Management,Soft Tissue Mobilization, Therapeutic Exercises Modalities Cold Pack/Ice Massage,Electric Stimulation,Hot Packs, Ultrasound Discharge Physical Therapy Discharge Reasons Goals Met Next Visit Focus/Plan Next Note Type Discharge Summary
== END 2021-04-30 12:31 ==
LOC: PHYS 16:00
PROVIDERS: Family Provider Physician Assistant; PCP Physician Assistant; Referring Provider Physician Assistant; Visit Provider Physician Assistant
DX: S52.532D Colles' fracture of left radius, subsequent encounter for closed fracture with routine healing (principal); M25.632 Stiffness of left wrist, not elsewhere classified; M25.532 Pain in left wrist; R53.1 Weakness
CPT/HCPCS: 97110; 97140; 97161

== ENCOUNTER → 2021-08-18 13:26 | Outpatient (CLI) | payer OTHER, SELFPAY ==
--- NOTE | 2021-08-18 | DI.MG.S_ITS ---
BILATERAL DIGITAL DIAGNOSTIC MAMMOGRAM 3D/2D: 08/18/2021 CLINICAL: Bilateral breast lumps. Comparison is made to exams dated: 08/12/2020 mammogram, 07/11/2019 mammogram, 10/17/2017 mammogram, and 07/28/2016 mammogram - [facility]. The tissue of both breasts is extremely dense, which lowers the sensitivity of mammography. No significant masses, calcifications, or other findings are seen in either breast. Benign calcifications in both breasts. IMPRESSION: INCOMPLETE: NEEDS ADDITIONAL IMAGING EVALUATION No mammographic evidence of malignancy. A targeted ultrasound for palpable abnormality is recommended and will immediately follow. This exam was interpreted at Station ID: [id number]. NOTE: For mammograms, a report in lay terms will be sent to the patient. Approximately 15% of breast malignancies will not be visualized mammographically. In the management of a palpable breast mass, a negative mammogram must not discourage biopsy of a clinically suspicious lesion. Electronically Signed By: Vidal Milan M.D. slc/:08/18/2021 14:33:10 ACR BI-RADS Category 0: Incomplete [id number]
--- NOTE | 2021-08-18 | DI.US.S_ITS ---
LIMITED ULTRASOUND OF RIGHT BREAST: 08/18/2021 CLINICAL: Palpable right breast lump. Comparison is made to exams dated: 08/18/2021 mammogram, 08/12/2020 mammogram, 07/11/2019 mammogram, 10/17/2017 ultrasound, 10/17/2017 mammogram, and 07/28/2016 mammogram - [facility]. Real-time ultrasound of the right breast 5 o'clock region was performed. El scale images of the real-time examination were reviewed. No significant abnormalities were seen sonographically in the right breast. IMPRESSION: NEGATIVE No sonographic evidence of malignancy in the region of the palpable abnormality. A 1 year screening mammogram is recommended. Exam findings were conveyed to the patient. Patient is advised to monitor for significant change. Clinical follow-up as needed. This exam was interpreted at Station ID: [id number]. Electronically Signed By: Vidal Milan M.D. slc/:08/18/2021 14:55:05 letter sent: Normal Exam Ultrasound BI-RADS: 1 Negative
--- NOTE | 2021-08-18 | DI.US.S_ITS ---
LIMITED ULTRASOUND OF LEFT BREAST: 08/18/2021 CLINICAL: Palpable left breast lump. Comparison is made to exams dated: 08/18/2021 mammogram, 08/12/2020 mammogram, 07/11/2019 mammogram, 10/17/2017 ultrasound, 10/17/2017 mammogram, and 07/28/2016 mammogram - [facility]. Color flow and real-time ultrasound of the left breast 7 o'clock region were performed. El scale images of the real-time examination were reviewed. No significant abnormalities were seen sonographically in the left breast. IMPRESSION: NEGATIVE No sonographic evidence of malignancy in the region of the palpable abnormality. A 1 year screening mammogram is recommended. Exam findings were conveyed to the patient. Patient is advised to monitor for significant change. Clinical follow-up as needed. This exam was interpreted at Station ID: [id number]. Electronically Signed By: Vidal Milan M.D. slc/:08/18/2021 15:03:56 Entry: - 08/19/2021 06:26:17 Ultrasound BI-RADS: 1 Negative
== END ==
PROVIDERS: Family Provider Physician Assistant; PCP Physician Assistant; Referring Provider Internal Medicine; Visit Provider Internal Medicine
DX: N64.4 Mastodynia (principal); R92.2 Inconclusive mammogram; R92.1 Mammographic calcification found on diagnostic imaging of breast
CPT/HCPCS: 76642; 77066; G0279

== ENCOUNTER → 2022-09-01 14:00 | Outpatient (CLI) | payer OTHER, SELFPAY ==
--- NOTE | 2022-09-01 | DI.MG.S_ITS ---
BILATERAL DIGITAL SCREENING MAMMOGRAM 3D/2D WITH CAD: 09/01/2022 CLINICAL: Routine screening. Family history of breast cancer. Comparison is made to exams dated: 08/18/2021 mammogram, 08/12/2020 mammogram, and 07/11/2019 mammogram - [facility]. Both breasts are extremely dense, which lowers the sensitivity of mammography (category d />75% glandular tissue). Current study was also evaluated with a Computer Aided Detection (CAD) system. There are stable benign calcifications in the right breast. There also are benign calcifications in the left breast. Additionally, there are benign post operative findings in the right breast. No significant masses, calcifications, or other findings are seen in either breast. There has been no significant interval change. IMPRESSION: BENIGN There is no mammographic evidence of malignancy. A 1 year screening mammogram is recommended. Based on Tyrer-Cuzick model (a risk assessment model), the patient's lifetime risk is 59.1% and her 10 year risk is 37.2%. If a patient has an elevated risk, a more comprehensive evaluation should be considered and/or a referral to a genetic counselor. The [place] [employer], [employer], and NCCN Guidelines advise the consideration of Breast MRI as an adjunct to screening mammography in patients whose Lifetime risk to develop breast cancer is 20% or higher. This exam was interpreted at Station ID: [id number]. NOTE: For mammograms, a report in lay terms will be sent to the patient. Approximately 15% of breast malignancies will not be visualized mammographically. In the management of a palpable breast mass, a negative mammogram must not discourage biopsy of a clinically suspicious lesion. Electronically Signed By: Mars Davison M.D. acr/penrad:09/01/2022 16:35:24 letter sent: Normal Exam ACR BI-RADS Category 2: Benign Finding(s) 3342F
--- NOTE | 2022-09-01 | DI.RAD.S_ITS ---
PROCEDURE: XR KNEE LT 3V INDICATIONS: KNEE PAIN TECHNIQUE: 3 views of the knee were acquired. COMPARISON: None. FINDINGS: Bones: No fractures or dislocations. Moderate tricompartmental osteoarthritis is seen most notably in medial femoral tibial compartment. No suspicious bony lesions. Soft tissues: No joint effusion. Corticated calcifications superior to left patella within distal quadriceps tendon is noted which may indicate sequelae from remote injury. IMPRESSION: No acute left knee fracture or dislocation. Moderate tricompartmental osteoarthritis as above. No significant joint effusion. Suggestion of old injury involving superior aspect of patella/distal quadriceps tendon. Dictated by: Donaldo Fletcher M.D. on 09/01/2022 at 17:39 Approved by: Donaldo Fletcher M.D. on 09/01/2022 at 17:40
--- NOTE | 2022-09-01 | DI.RAD.S_ITS ---
PROCEDURE: XR KNEE RT 3V INDICATIONS: KNEE PAIN TECHNIQUE: Three views of the knee were acquired. COMPARISON: None. FINDINGS: Bones: No fractures or dislocations. Moderate tricompartmental osteoarthritis is seen most notably in patellofemoral compartment. No significant patellar subluxation. No suspicious bony lesions. Soft tissues: No significant joint effusion. Corticated calcification adjacent to superior aspect of patella is noted. IMPRESSION: Moderate tricompartmental osteoarthritis most notably in patellofemoral compartment. No acute fracture or dislocation. No significant joint effusion. Suggestion of old injury involving superior aspect of patella /distal quadriceps tendon. Dictated by: Donaldo Fletcher M.D. on 09/01/2022 at 17:40 Approved by: Donaldo Fletcher M.D. on 09/01/2022 at 17:44
== END ==
PROVIDERS: PCP Physician Assistant; Referring Provider Physician Assistant; Visit Provider Physician Assistant
DX: Z12.31 Encounter for screening mammogram for malignant neoplasm of breast (principal); Z80.3 Family history of malignant neoplasm of breast; M17.0 Bilateral primary osteoarthritis of knee; M25.561 Pain in right knee; M25.562 Pain in left knee; G89.29 Other chronic pain
CPT/HCPCS: 73562; 77063; 77067

== ENCOUNTER → 2022-11-16 15:22 | Outpatient (CLI) | payer OTHER, SELFPAY ==
--- NOTE | 2022-11-16 | DI.RAD.S_ITS ---
Bone Density Report Name: YAMILEX RIVERA Age: 67 Sex: Female Ethnicity: White Date of : 1955 Indication: osteopenia; Referring Provider: REX MAGANA Study: Bone densitometry was performed. Exam Date: November 16, 2022 Accession number: [id number] Bone Density: Region BMD T-score Z-score Classification AP Spine(L1, L2, L4) 0.681 -3.2 -1.3 Osteoporosis Femoral Neck (Left) 0.553 -2.7 -1.0 Osteoporosis Total Hip (Left) 0.695 -2.0 -0.7 Osteopenia Femoral Neck (Right) 0.593 -2.3 -0.7 Osteopenia Total Hip (Right) 0.706 -1.9 -0.6 Osteopenia Total Hip Mean 0.701 -2.0 -0.7 Osteopenia World Health Organization criteria for BMD impression classify patients as: Normal (T-score at or above -1.0), Osteopenia (T-score between -1.0 and -2.5), or Osteoporosis (T-score at or below -2.5). 10-year Fracture Risk: FRAX not reported because: Some T-score for Spine Total or Hip Total or Femoral Neck at or below -2.5 Previous Exams: -- Region Exam Age BMD T-score BMD Change BMD Change Date g/cm2 vs Baseline vs Previous -- AP Spine (L1-L2,L4) 11/16/2022 67 0.681 -3.2 -0.109 (-13.8%)# -0.109 (-13.8%)# 07/11/2019 64 0.790 -2.2 Total Hip(Left) 11/16/2022 67 0.695 -2.0 -0.028 (-3.8%)# -0.028 (-3.8%)# 07/11/2019 64 0.723 -1.8 Total Hip(Right) 11/16/2022 67 0.706 -1.9 -0.011 (-1.5%)# -0.011 (-1.5%)# 07/11/2019 64 0.717 -1.8 -- *Denotes significance at 95% confidence level, LSC for AP Spine = 0.022 g/cm2, LSC for Total Hip = 0.027 g/cm2 # Denotes dissimilar scan types or analysis methods Impression: The patient has osteoporosis, based on the Total Spine T-score. No significant bone loss was observed. Discussion: INCREASED RISK OF FRACTURE. BONE DENSITY IS UNDESIRABLY LOW AT ONE OR MORE SKELETAL SITES, CONSISTENT WITH POSTMENOPAUSAL OSTEOPOROSIS. This patient's lowest T-score meets the World Health Organization's (WHO) criteria for osteoporosis at one or more sites (T-score -2.5 or below). In untreated patients, the risk of osteoporotic fracture increases approximately two-fold for each 1.0 SD decrease in T-score. Low bone density is not the only risk factor for fracture; also consider factors such as patient's age, frailty or poor health, risk of falling, risk of injury, previous osteoporotic fracture, family history of osteoporosis, cigarette smoking, low body weight, etc. Not everyone with low bone mineral density has osteoporosis; osteomalacia and other metabolic bone disorders should also be considered. Patients who have osteoporosis should be evaluated for specific diseases and conditions (secondary causes) that may cause or contribute to bone loss. The [place] [employer]ocrinologists (AACE) and National Osteoporosis Foundation (NOF) recommend pharmacologic intervention for all postmenopausal women whose T-score is in this range. The patient should follow a healthful lifestyle (good nutrition with adequate calcium and vitamin D, and appropriate weight-bearing exercise). Follow-Up: Consider a repeat BMD and Vertebral Fracture Assessment (VFA) exam in 2 years or sooner if medically necessary, to reassess this patient's status. Reported by: SUNITA BURGESS M.D. on 11/16/2022 3:51:00 PM.
== END ==
PROVIDERS: PCP Physician Assistant; Referring Provider Physician Assistant; Visit Provider Physician Assistant
DX: M81.0 Age-related osteoporosis without current pathological fracture (principal); M85.859 Other specified disorders of bone density and structure, unspecified thigh; M85.88 Other specified disorders of bone density and structure, other site
CPT/HCPCS: 77080

== ENCOUNTER → 2023-06-18 15:49 | Outpatient (CLI) | payer MEDICARE, SELFPAY ==
--- NOTE | 2023-06-18 15:52 | DI.RAD.S_ITS ---
PROCEDURE: XR LUMBAR SPINE 2-3V INDICATIONS: chronic low back pain, arthritis TECHNIQUE: 3 views of the lumbar spine were acquired. COMPARISON: None. FINDINGS: Bones: 5 [id number] vertebrae are present. There is normal bony alignment. No vertebral body compression fractures. Mild multilevel degenerative changes with disc height loss and facet arthropathy. No suspicious bony lesions. Soft tissues: Overlying bowel gas pattern is normal. No suspicious soft tissue calcifications. IMPRESSION: 1. No acute bony abnormality. 2. Mild multilevel degenerative changes of the spine. Dictated by: Neyda Villalobos M.D. on 06/19/2023 at 10:52 Approved by: Neyda Villalobos M.D. on 06/19/2023 at 10:55
== END ==
PROVIDERS: PCP Family Medicine; Referring Provider Family Medicine; Visit Provider Family Medicine
DX: M47.816 Spondylosis without myelopathy or radiculopathy, lumbar region (principal); M54.50 Low back pain, unspecified; G89.29 Other chronic pain
CPT/HCPCS: 72100

== ENCOUNTER → 2023-08-13 12:40 | Outpatient (CLI) | payer MEDICARE, SELFPAY ==
[2023-08-13 13:35] LABS: Appearance Urine UA CLEAR; Bilirubin Urine UA NEGATIVE (NEGATIVE); Color Urine UA YELLOW; Glucose Urine UA NEGATIVE (Negative); Ketones Urine UA NEGATIVE (NEGATIVE); Leukocyte Esterase Urine UA NEGATIVE (NEGATIVE); Nitrite Urine UA NEGATIVE (Negative); Occult Blood Urine UA NEGATIVE (Negative); Protein Urine UA NEGATIVE (Negative); Specific Gravity Urine UA 1.025 (1.000-1.035); Urobilinogen Urine UA 0.2 E.U./dL (0.2)
[2023-08-13 13:52] LABS: Add Manual Diff / Slide Review NO; Basophils Absolute Auto 0 /uL (0-100); Basophils Percent Auto 0.6 % (0-2); Eosinophils Absolute Auto 100 /uL (0-450); Eosinophils Percent Auto 1.1 % (2-4); Hematocrit 39.5 % (36-46); Hemoglobin 13.5 g/dL (12.0-16.0); Lymphocytes Absolute Auto 1700 /uL (1100-4500); Lymphocytes Percent Auto 30.6 % (25-40); Mean Corpuscular HGB Conc 34.2 % (30-36); Mean Corpuscular Hemoglobin 28.1 PG (26-34); Mean Corpuscular Volume 82.3 fL (80-100); Monocytes Absolute Auto 600 /uL (0-900); Monocytes Percent Auto 10.2 % (3-14); Neutrophils Absolute Auto 3100 /uL (1500-7000); Neutrophils Percent Auto 57.5 % (50-75); Platelet Count 294 X10^3/uL (150-400); Red Cell Distribution Width 13.5 % (11.6-14.8); White Blood Cell Count 5.4 X10^3/uL (4.5-11.0)
[2023-08-13 13:59] LABS: pH Urine UA 5.5 (4.5-8.0)
[2023-08-13 14:01] LABS: Bacteria Urine None Seen; Culture Indicated Urine Cult Not Indicated; RBC Urine None Seen (0-5/HPF); Squamous Epithelial Cell Urine None Seen (0-5/HPF); Urine Volume 10mL (spun); WBC Urine None Seen (0-5/HPF)
[2023-08-13 14:02] LABS: Hemoglobin A1C% w Est Avg Glu 5.4 % (4.0-6.0)
[2023-08-13 14:06] LABS: Blood Urea Nitrogen 20 mg/dL (7-17); Calcium 9.5 mg/dL (8.4-10.2); Carbon Dioxide 25 mmol/L (22-32); Chloride 105 mmol/L (98-107); Estimated Glomerular Filt Rate > 60 mL/min (>60); Glucose 86 mg/dL (80-110); HEMOLYSIS < 15 (0-50); Potassium 4.2 mmol/L (3.4-5.1); Sodium 140 mmol/L (137-145)
== END ==
PROVIDERS: PCP Family Medicine; Referring Provider Orthopaedic Surgery; Visit Provider Orthopaedic Surgery
DX: Z01.812 Encounter for preprocedural laboratory examination (principal); R73.9 Hyperglycemia, unspecified; N39.0 Urinary tract infection, site not specified; Z01.818 Encounter for other preprocedural examination
CPT/HCPCS: 36415; 80048; 81001; 83036; 85025; 93005

== ENCOUNTER → 2024-02-16 13:19 | Outpatient (CLI) | payer MEDICARE, SELFPAY ==
--- NOTE | 2024-02-16 13:20 | DI.US.S_ITS ---
PROCEDURE: US PERIPH VENOUS LOW EXTREM RT INDICATIONS: RIGHT CALF PAIN TECHNIQUE: Real-time imaging, as well as color and pulse Doppler interrogation, were performed of the lower extremity deep veins from the inguinal ligament to the popliteal fossa, with documentation of the visualized calf veins. COMPARISON: None. FINDINGS: The common femoral, femoral, popliteal, and the visualized calf veins are normally compressible, and free of intraluminal thrombus. Color and pulse Doppler demonstrate normal phasic intraluminal flow. There is normal augmentation response to distal compression maneuver. Incidental moderate Martinez's cyst measuring 5.6 x 4.7 centimeters. No significant abnormality at the areas of concern in the right lower leg. IMPRESSION: No findings of lower extremity deep venous thrombosis. Dictated by: Donny Harvey M.D. on 02/16/2024 at 14:29 Approved by: Donny Harvey M.D. on 02/16/2024 at 14:30
== END ==
PROVIDERS: PCP Family Medicine; Referring Provider Orthopaedic Surgery; Visit Provider Orthopaedic Surgery
DX: M79.661 Pain in right lower leg (principal); M71.21 Synovial cyst of popliteal space [Baker], right knee
CPT/HCPCS: 93971

== ENCOUNTER → 2024-02-18 11:10 | Outpatient (CLI) | payer MEDICARE, SELFPAY ==
--- NOTE | 2024-02-18 11:11 | DI.RAD.S_ITS ---
PROCEDURE: XR CHEST 2V INDICATIONS: ongoing chest discomfort, right sided lung pain TECHNIQUE: 2 views of the chest were acquired. COMPARISON: None. FINDINGS: Surgical changes and devices: None. Lungs and pleura: Possible nodule in the right upper lobe.. No pleural effusions or pneumothorax. Mediastinum: Mediastinal contours are normal. Heart size is normal. Bones and chest wall: No suspicious bony abnormalities. Soft tissues appear unremarkable. IMPRESSION: Possible right upper lobe nodule. Recommend further evaluation with CT chest. Approved by: Catina Carvalho M.D.,Ph.D. on 02/20/2024 at 22:56
--- NOTE | 2024-02-18 11:12 | DI.MG.S_ITS ---
BILATERAL DIGITAL SCREENING MAMMOGRAM 3D/2D WITH CAD: 02/18/2024 CLINICAL: Routine screening. Family history of breast cancer. Comparison is made to exams dated: 09/01/2022 mammogram, 08/18/2021 mammogram, and 08/12/2020 mammogram - [facility]. Both breasts are extremely dense, which lowers the sensitivity of mammography (category d />75% glandular tissue). Current study was also evaluated with a Computer Aided Detection (CAD) system. There are benign calcifications in both breasts. There also are benign post operative findings in the right breast. No significant masses, calcifications, or other findings are seen in either breast. There has been no significant interval change. IMPRESSION: BENIGN There is no mammographic evidence of malignancy. A 1 year screening mammogram is recommended. Based on Tyrer-Cuzick model (a risk assessment model), the patient's lifetime risk is 57.1% and her 10 year risk is 37.2%. If a patient has an elevated risk, a more comprehensive evaluation should be considered and/or a referral to a genetic counselor. The [employer] [employer], [employer], and NCCN Guidelines advise the consideration of Breast MRI as an adjunct to screening mammography in patients whose Lifetime risk to develop breast cancer is 20% or higher. This exam was interpreted at Station ID: [id number]. NOTE: For mammograms, a report in lay terms will be sent to the patient. Approximately 15% of breast malignancies will not be visualized mammographically. In the management of a palpable breast mass, a negative mammogram must not discourage biopsy of a clinically suspicious lesion. Electronically Signed By: Vidal vaca/noel:02/21/2024 09:50:20 letter sent: Normal Exam ACR BI-RADS Category 2: Benign Finding(s) 3342F
== END ==
PROVIDERS: PCP Family Medicine; Referring Provider Family Medicine; Visit Provider Family Medicine
DX: Z12.31 Encounter for screening mammogram for malignant neoplasm of breast (principal); R06.9 Unspecified abnormalities of breathing; Z80.3 Family history of malignant neoplasm of breast
CPT/HCPCS: 71046; 77063; 77067

== ENCOUNTER → 2024-02-22 16:18 | Outpatient (CLI) | payer MEDICARE, SELFPAY ==
--- NOTE | 2024-02-22 16:19 | DI.US.S_ITS ---
PROCEDURE: US CAROTID DOPPLER BI INDICATIONS: mild R carotid artery disease TECHNIQUE: Color and pulse Doppler interrogation was performed of both carotid systems, with image documentation and velocity measurements. COMPARISON: None. FINDINGS: Stenosis calculations are based on SRU (Society of Radiologists in Ultrasound) criteria. Right side: Brachial blood pressure: 130/76 mm Hg. Common carotid artery peak systolic velocity: 90 (proximal) and 79 (distal) cm/sec. Internal carotid artery peak systolic velocity: 112 cm/sec. Internal carotid artery end diastolic velocity: 39 cm/sec. External carotid artery peak systolic velocity: 62 cm/sec. ICA/CCA peak systolic ratio: 1.2 . El scale imaging description: No plaque is visualized. Percent internal carotid artery stenosis: Normal . Vertebral artery: Flow direction is antegrade. Left side: Brachial blood pressure: 123/77 mm Hg. Common carotid artery peak systolic velocity: 195 (proximal), 86 (distal) cm/sec. Internal carotid artery peak systolic velocity: 106 cm/sec. Internal carotid artery end diastolic velocity: 48 cm/sec. External carotid artery peak systolic velocity: 72 cm/sec. ICA/CCA peak systolic ratio: 0.5 . El scale imaging description: No atherosclerotic plaque. Percent internal carotid artery stenosis: Normal. Vertebral artery: Flow direction is antegrade. IMPRESSION: 1. No stenosis of either right or left internal carotid artery. 2. Asymmetrically elevated peak systolic velocity of the proximal left common carotid artery, concerning for significant stenosis. Recommend further evaluation with CT neck angiogram. Dictated by: Reena Hobbs M.D. on 02/23/2024 at 18:32 Approved by: Reena Hobbs M.D. on 02/23/2024 at 18:38
== END ==
PROVIDERS: PCP Family Medicine; Referring Provider Family Medicine; Visit Provider Family Medicine
DX: I65.21 Occlusion and stenosis of right carotid artery (principal)
CPT/HCPCS: 93880

== ENCOUNTER → 2024-03-02 11:00 | Outpatient (CLI) | payer MEDICARE, SELFPAY ==
--- NOTE | 2024-03-02 11:02 | DI.CT.S_ITS ---
PROCEDURE: CT CHEST WO CON INDICATIONS: pulmonary nodule TECHNIQUE: Noncontrast 5 mm thick sections acquired from the pulmonary apices to the posterior costophrenic angles. 1 mm lung window, 5 mm thick coronal and sagittal and 7 mm axial MIP reformats were then acquired. For radiation dose reduction, the following was used: automated exposure control, adjustment of mA and/or kV according to patient size. COMPARISON: [facility], CT, CT ABDOMEN PELVIS W CON, 08/06/2019, 15:52. [facility], CR, XR CHEST 2V, 02/18/2024, 11:10. FINDINGS: Image quality: Diagnostic. Lower Neck: No enlarged lymph nodes. Thyroid: No thyroid nodules which require sonographic follow up, per consensus guidelines. Axillae: No enlarged lymph nodes. Chest Wall: Unremarkable. Bones: Bony protrusion the 1st costosternal junction corresponds to nodule seen on recent x-ray (series 2, image 15). Lungs and Pleura: No pneumothorax or pleural effusions. Juxtapleural nodules with smooth margins, favoring benign intrapulmonary lymph nodes. New 3-4 mm solid nodule in the left lower lobe (series 3, image 165). Additional smaller pulmonary nodules are present within the right lower lobe. Heart: Heart size is normal. No pericardial effusion. Thoracic Vessels: The aorta and pulmonary arteries demonstrate normal size. Mediastinum and Lisandra: No enlarged lymph nodes. Esophagus: No wall thickening. No hiatal hernia. Upper Abdomen: Visualized upper abdomen solid organs and bowel loops appear normal. IMPRESSION: Bony protrusion the 1st costosternal junction corresponds to nodule seen on recent x-ray (series 2, image 15). Pulmonary micro nodules. Consider 12 month follow-up if at high risk for developing lung cancer, per Fleischner Society guidelines. Dictated by: Malachi Mcdermott M.D. on 03/02/2024 at 16:34 Approved by: Malachi Mcdermott M.D. on 03/02/2024 at 16:36
--- NOTE | 2024-03-02 11:02 | DI.CT.S_ITS ---
PROCEDURE: CT ANGIO NECK INDICATIONS: Occlusion and stenosis of right and left carotid arteries TECHNIQUE: After the administration of intravenous contrast, 1.5 mm axial sections acquired from the aortic arch to the [place] of [place]. Maximum intensity projection (MIP) reformats were then performed. COMPARISON: None. FINDINGS: Image quality: Diagnostic. 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 The origins of the common carotid arteries appear patent. The common carotid arteries demonstrate normal calibers and courses. The bifurcation regions appear normal bilaterally. Approximate 50% narrowing is present at the origin of the right internal carotid artery. Posterior circulation: Left vertebral artery dominance. The origins of the vertebral arteries appear patent. The more superior portions of the vertebral arteries demonstrate normal course and caliber. They join to form a normal appearing basilar artery. Soft tissues: Visualized neck soft tissues demonstrate no suspicious abnormalities. The thyroid gland demonstrates no significant abnormality. 6 mm left posterior scalp lymph node versus sebaceous cyst. Bones: No suspicious bony lesions. Visualized cervical spine appears normally aligned. IMPRESSION: Approximate 50% narrowing at the origin of the right internal carotid artery. Any quantitative stenosis measurements were performed using the NASCET criteria. Dictated by: Yandy Vasquez M.D. on 03/02/2024 at 17:47 Approved by: Yandy Vasquez M.D. on 03/02/2024 at 17:52
[2024-03-02 11:49] LABS: Estimated Glomerular Filt Rate > 60 mL/min (>60)
[2024-03-02 12:40] LABS: Hemoglobin A1C% w Est Avg Glu 5.5 % (4.0-6.0)
[2024-03-02 12:41] LABS: Add Manual Diff / Slide Review NO; Basophils Absolute Auto 0 /uL (0-100); Basophils Percent Auto 0.8 % (0-2); Eosinophils Absolute Auto 100 /uL (0-450); Eosinophils Percent Auto 1.1 % (2-4); Hematocrit 38.2 % (36-46); Hemoglobin 12.9 g/dL (12.0-16.0); Lymphocytes Absolute Auto 1400 /uL (1100-4500); Lymphocytes Percent Auto 26.1 % (25-40); Mean Corpuscular HGB Conc 33.7 % (30-36); Mean Corpuscular Hemoglobin 27.2 PG (26-34); Mean Corpuscular Volume 80.8 fL (80-100); Monocytes Absolute Auto 500 /uL (0-900); Monocytes Percent Auto 9.4 % (3-14); Neutrophils Absolute Auto 3400 /uL (1500-7000); Neutrophils Percent Auto 62.6 % (50-75); Platelet Count 311 X10^3/uL (150-400); Red Blood Cell Count 4.73 X10^6/uL (4.0-5.2); Red Cell Distribution Width 14.6 % (11.6-14.8); White Blood Cell Count 5.5 X10^3/uL (4.5-11.0)
[2024-03-02 12:53] LABS: BUN Creatinine Ratio 27.1 (6-22); Blood Urea Nitrogen 19 mg/dL (7-17); Calcium 9.7 mg/dL (8.4-10.2); Carbon Dioxide 24 mmol/L (22-32); Chloride 104 mmol/L (98-107); Estimated Glomerular Filt Rate > 60 mL/min (>60); Glucose 94 mg/dL (80-110); HEMOLYSIS < 15 (0-50); Sodium 138 mmol/L (137-145)
[2024-03-02 17:49] LABS: Appearance Urine UA CLEAR; Bilirubin Urine UA NEGATIVE (NEGATIVE); Color Urine UA YELLOW; Glucose Urine UA NEGATIVE (Negative); Ketones Urine UA NEGATIVE (NEGATIVE); Leukocyte Esterase Urine UA NEGATIVE (NEGATIVE); Nitrite Urine UA NEGATIVE (Negative); Occult Blood Urine UA NEGATIVE (Negative); Protein Urine UA NEGATIVE (Negative); Urobilinogen Urine UA 0.2 E.U./dL (0.2)
[2024-03-02 17:58] LABS: pH Urine UA 5.5 (4.5-8.0)
[2024-03-02 18:35] LABS: Bacteria Urine None Seen; Culture Indicated Urine Cult Not Indicated; RBC Urine None Seen (0-5/HPF); Squamous Epithelial Cell Urine None Seen (0-5/HPF); Urine Volume 10mL (spun); WBC Urine None Seen (0-5/HPF)
== END ==
LOC: CT 11:01
PROVIDERS: Orthopaedic Surgery; Radiology Diagnostic Radiology; PCP Family Medicine; Referring Provider Family Medicine; Visit Provider Family Medicine
DX: Z01.812 Encounter for preprocedural laboratory examination; I65.21 Occlusion and stenosis of right carotid artery; I65.22 Occlusion and stenosis of left carotid artery; R91.8 Other nonspecific abnormal finding of lung field; N39.0 Urinary tract infection, site not specified; R73.9 Hyperglycemia, unspecified
CPT/HCPCS: 36415; 70498; 71250; 80048; 81001; 82565; 83036; 85025; Q9967

== ENCOUNTER 2024-09-22 13:15 | Emergency (ER) | payer MEDICARE, SELFPAY ==
[2024-09-22] VITALS (8 sets, daily range): BP systolic 128–164; BP diastolic 59–74; PULSE 69–92; RESP 18; TEMP 36.6; O2SAT 95–99; BMI 27.4
--- NOTE | 2024-09-22 13:27 | EKG_ITS ---
[address] [address] Test Date: 2024-09-22 Pat Name: Katie James Department: Room: Gender: Female [employer]: ISAAC : 1955 Requested By: Order Number: [id number] Reading MD: Rome Chowdhury Measurements Intervals [place] Rate: 82 P: 54 UT: 164 QRS: 60 QRSD: 78 T: 33 QT: 376 QTc: 439 Interpretive Statements Normal sinus rhythm Electronically Signed On 10-01-2024 18:49:27 PDT by Rome Chowdhury
[2024-09-22] MEDS: ONDANSETRON 4 MG/2 ML INJ IV (13:43)
[2024-09-22 13:55] LABS: Add Manual Diff / Slide Review NO; Basophils Absolute Auto 0 /uL (0-100); Basophils Percent Auto 0.5 % (0-2); Eosinophils Absolute Auto 100 /uL (0-450); Eosinophils Percent Auto 1.9 % (2-4); Hemoglobin 14.4 g/dL (12.0-16.0); Lymphocytes Absolute Auto 500 /uL (1100-4500); Lymphocytes Percent Auto 15.6 % (25-40); Mean Corpuscular HGB Conc 33.6 % (30-36); Mean Corpuscular Hemoglobin 26.7 PG (26-34); Mean Corpuscular Volume 79.3 fL (80-100); Monocytes Absolute Auto 700 /uL (0-900); Monocytes Percent Auto 22.1 % (3-14); Neutrophils Absolute Auto 1900 /uL (1500-7000); Neutrophils Percent Auto 59.9 % (50-75); Platelet Count 255 X10^3/uL (150-400); Red Blood Cell Count 5.42 X10^6/uL (4.0-5.2); Red Cell Distribution Width 14.5 % (11.6-14.8); White Blood Cell Count 3.2 X10^3/uL (4.5-11.0)
--- NOTE | 2024-09-22 13:59 | ED_ITS ---
HPI - Abdominal Pain General Chief Complaint: Abdominal Pain Stated Complaint: N/V/D Time Seen by Provider: 09/22/24 13:30 Source: patient Mode of arrival: Ambulatory History of Present Illness HPI narrative: 69-year-old female history history of dyslipidemia presents with nausea vomiting diarrhea since Tuesday unable to hold anything down along with lower abdominal pain sharp intermittent pain since feeling dehydrated and weak at this time. No recent antibiotic use, no blood in the stool or urine, denies back pain, fever/chills and no foreign travel recently. No sick contacts at this time. Other than what is stated 14 point review of system is negative Related Data Home Medications Medication Instructions Recorded Confirmed calcium carbonate (Calcium 500) 500 mg PO DAILY 08/14/19 03/06/24 cholecalciferol (vitamin D3) 125 125 mcg PO DAILY 08/14/19 03/06/24 mcg (5,000 unit) capsule (Dialyvite Vitamin D) multivitamin 1 tab PO DAILY 08/14/19 03/06/24 omeprazole 10 mg capsule,delayed 10 mg PO DAILY 03/06/24 03/06/24 release Previous Rx's Medication Instructions Recorded sertraline 25 mg tablet 25 mg PO DAILY #90 tabs 11/03/23 promethazine 25 mg tablet 25 mg PO Q4-6H PRN motion sickness 03/12/24 #60 tabs atorvastatin 20 mg tablet 20 mg PO DAILY #100 tabs 07/20/24 ondansetron HCl 4 mg tablet 4 mg PO Q8H PRN nausea and 09/22/24 vomiting #30 tabs Allergies Allergy/AdvReac Type Severity Reaction Status Date / Time Sulfa (Sulfonamide Allergy Unknown Eyes swell Verified 03/06/24 15:34 Antibiotics) shut [SULFA (SULFONAMIDE ANTIBIOTICS)] Review of Systems Review of Systems ROS Unobtainable: All systems reviewed & are unremarkable except as noted in HPI and below Patient History Medical History (Updated 09/22/24 @ 15:56 by Hair Denney DO) Eczema Anemia Depression Anxiety History of frequent headaches Urinary incontinence Urinary frequency Low blood sugar Nausea Diverticulitis GERD (gastroesophageal reflux disease) Knee pain Arthritis Sinus drainage Shortness of breath History of cardiac murmur as a child Arrhythmia Elevated cholesterol Surgical History History of tonsillectomy Status post bunionectomy Status post hysteroscopy Family History Brother Age: 70 High cholesterol Depression Mental health problem Mother Age: 91 Breast cancer Heart disease Hypertension Mental health problem Grandfather Age: 78 Stroke Grandmother Age: 77 AAA (abdominal aortic aneurysm) Heart disease Father Hypertension Heart disease Social History household members: none occupational status: employed Smoking Status: Former smoker alcohol intake: never substance use type: does not use Smoking Status: Former smoker alcohol intake frequency: 0-2 drinks per day Exam Narrative Exam Narrative: GENERAL: [79] year old patient appears stated age. Well-developed patient, in mild distress. HEAD: Atraumatic. Normocephalic. EYES: Pupils equal round and reactive. Extraocular motions intact. No scleral icterus. No injection or drainage. ENT: Nose without bleeding, purulent drainage. Throat without erythema, tonsillar hypertrophy or exudate. Airway patent. NECK: Trachea midline. Non tender CARDIOVASCULAR: Regular rate and rhythm without murmurs, gallops, or rubs. RESPIRATORY: Clear to auscultation. Breath sounds equal bilaterally. No wheezes, rales, or rhonchi. GASTROINTESTINAL: Abdomen soft, LLQ and lower abd supapubic pain but no r/r/g/ nondistended. EXTREMITIES: No edema or joint tenderness. BACK: Nontender without deformity or crepitance. No flank tenderness. NEURO: AOx3. SKIN: No rash or erythema of visible areas Initial Vital Signs Initial Vital Signs: Vital Signs Pulse Rate 91 H 09/22/24 13:23 Blood Pressure 164/74 H 09/22/24 13:23 Pulse Oximetry 99 09/22/24 13:23 Course Orders Ordered: ED Orders 09/22/24 13:29 Stool Culture Stat 09/22/24 13:31 EKG-12 Lead Stat 09/22/24 13:40 Complete Blood Count AUTO DIFF Stat Comprehensive Metabolic Panel Stat Lipase Stat Troponin I Stat 09/22/24 13:59 CT abdomen pelvis w con Stat Covid-19 + FLU A/B + RSV - PCR Stat Discontinued Medications Sodium Chloride (Normal Saline 0.9%) 1,000 mls @ 1,000 mls/hr IV BOLUS ONE Stop: 09/22/24 14:58 Last Admin: 09/22/24 14:33 Dose: 1,000 mls/hr Documented By: SPF Ketorolac Tromethamine (Ketorolac 30 Mg/Ml Vial) 30 mg IV NOW ONE Stop: 09/22/24 14:00 Last Admin: 09/22/24 14:32 Dose: 30 mg Documented By: SPF Ondansetron HCl (Ondansetron 4 Mg/2 Ml Inj) 4 mg IV NOW ONE Stop: 09/22/24 13:30 Last Admin: 09/22/24 13:43 Dose: 4 mg Documented By: Vital Signs Vital signs: Vital Signs - 8 hr 09/22/24 13:23 09/22/24 13:23 09/22/24 13:25 Temperature 97.8 F Pulse Rate 91 H 92 H Respiratory Rate 18 Blood Pressure 164/74 H 164/70 H Pulse Oximetry 99 98 Oxygen Delivery Method Room Air 09/22/24 13:30 09/22/24 13:30 09/22/24 14:00 Temperature Pulse Rate 78 Respiratory Rate Blood Pressure 134/66 134/61 Pulse Oximetry 98 Oxygen Delivery Method 09/22/24 14:00 Temperature Pulse Rate 71 Respiratory Rate Blood Pressure Pulse Oximetry 95 Oxygen Delivery Method MDM - Abdominal Pain Lab Data 09/22/24 13:40 09/22/24 13:40 Labs: Lab Results 09/22/24 Range/Units 13:40 WBC 3.2 L (4.5-11.0) X10^3/uL RBC 5.42 H (4.0-5.2) X10^6/uL Hgb 14.4 (12.0-16.0) g/dL Hct 43.0 (36-46) % MCV 79.3 L (80-100) fL MCH 26.7 (26-34) PG MCHC 33.6 (30-36) % RDW 14.5 (11.6-14.8) % Plt Count 255 (150-400) X10^3/uL Neut % (Auto) 59.9 (50-75) % Lymph % (Auto) 15.6 L (25-40) % [place] % (Auto) 22.1 H (3-14) % Eos % (Auto) 1.9 L (2-4) % Baso % (Auto) 0.5 (0-2) % Neut # (Auto) 1900 (7420-1958) /uL Lymph # (Auto) 500 L (1036-0053) /uL [place] # (Auto) 700 (0-900) /uL Eos # (Auto) 100 (0-450) /uL Baso # (Auto) 0 (0-100) /uL Sodium 141 (137-145) mmol/L Potassium 3.7 (3.4-5.1) mmol/L Chloride 105 (98-107) mmol/L Carbon Dioxide 20 L (22-32) mmol/L BUN 16 (7-17) mg/dL Creatinine 0.79 (0.52-1.04) mg/dL Estimated GFR > 60 (>60) mL/min BUN/Creatinine Ratio 20.3 (6-22) Glucose 105 (80-110) mg/dL Calcium 9.6 (8.4-10.2) mg/dL Total Bilirubin 1.1 (0.2-1.3) mg/dL AST 52 H (14-36) IU/L ALT 46 H (<35) IU/L Alkaline Phosphatase 100 (38-126) U/L Troponin I < 0.012 (0.01-0.034) ng/mL Total Protein 8.2 (6.3-8.2) g/dL Albumin 4.6 (3.5-5.0) g/dL Globulin 3.6 (1.7-4.1) g/dL Albumin/Globulin Ratio 1.3 (1.0-2.8) Lipase 64 (23-300) U/L Point of care testing: Urine Dip Bedside Urine Glucose Negative Bedside Urine Bilirubin + 1 Bedside Urine Ketone +++ 80 Urine Specific [place] 1.030 Bedside Urine Occult Blood - Negative Bedside Urine pH 6.0 Bedside Urine Protein + 30 Bedside Urine Urobilinogen +/- 1mg Bedside Urine Nitrite - Negative Bedside Urine Leukocytes - Negative Esterase Imaging Data CT scan - abdomen/pelvis: Radiologist's Impression: [address] [address] [address] Scan Report Signed Patient: Katie James MR#: [id number] : 1955 Acct:[id number] Age/Sex: 69 / F Date of Service: 09/22/24 Loc: ED Accession Number: [id number] Procedure: CT abdomen pelvis w con Ordering Provider: Hair Denney D.O. PROCEDURE: CT ABDOMEN PELVIS W CON INDICATIONS: abd pain n/v/d TECHNIQUE: After the administration of intravenous contrast, axial sections acquired from the lung bases to the pubic symphysis. Coronal and sagittal reformats were performed. For radiation dose reduction, the following was used: automated exposure control, adjustment of mA and/or kV according to patient size. COMPARISON: [facility], CT, CT ABDOMEN PELVIS W CON, 08/06/2019, 15:52. FINDINGS: Lower Chest: No significant findings. ABDOMEN: Liver: The liver is diffusely decreased in attenuation without focal mass lesion. Gallbladder: No radiopaque gallstones or wall thickening. Biliary ducts: No biliary dilation. Pancreas: No ductal dilation. Spleen: Size is within normal limits. Adrenal Glands: No adrenal nodules. Kidneys and Ureters: No hydronephrosis. No solid mass. No complex renal cystic lesion which requires follow up. Stomach and Bowel: Normal colonic caliber, without significant wall thickening. Peritoneum: No abnormal intraperitoneal fluid. No free air. Ventral Wall: No significant ventral hernia. Abdominal Nodes: No retroperitoneal or mesenteric adenopathy by size criteria. Vessels: Aorta and inferior vena cava are normal in size. PELVIS: Pelvic Organs: Retroverted uterus with probable uterine fundal uterine fibroid Bladder: No bladder wall thickening, accounting for underdistention. Pelvic Nodes: No enlarged lymph nodes. Miscellaneous: No inguinal hernias are seen. Bones: No aggressive osseous abnormality. IMPRESSION: No acute CT findings in the abdomen and pelvis Approved by: Yared Tay M.D. on 09/22/2024 at 14:29 ECG Data Attestation: I personally reviewed and interpreted this ECG as follows: Interpretation: HR [address]-t wave change [place] 164 QRS 78 QT 376 No old ekg to compare against MDM Narrative Medical decision making narrative: All lab work and CT scan reviewed patient given Zofran and normal saline 1 L bolus. Patient will be discharged on Zofran prescription. Differential diagnosis includes viral gastroenteritis, diverticulitis, constipation, pancreatitis dehydration, and electrolyte derangement. Clear liquid diet advance as tolerated follow up with PCP in 1 week Discharge Plan Departure Patient Disposition: Home Clinical Impression: Nausea vomiting and diarrhea Abdominal pain Qualifiers: Abdominal location: generalized Qualified Code(s): R10.84 - Generalized abdominal pain Instructions: DI for Abdominal Pain-Adult Activity Restrictions/Additional Instructions: Return with new or worsening symptoms. Take your medicines as directed. Follow up with PCP in 1 week. Clear liquid diet advance as tolerated Prescriptions: New ondansetron HCl 4 mg tablet 4 mg PO Q8H PRN (Reason: nausea and vomiting) Qty: 30 0RF No Action sertraline 25 mg tablet 25 mg PO DAILY Qty: 90 3RF promethazine 25 mg tablet 25 mg PO Q4-6H PRN (Reason: motion sickness) Qty: 60 0RF atorvastatin 20 mg tablet 20 mg PO DAILY Qty: 100 0RF omeprazole 10 mg capsule,delayed release(DR/EC) 10 mg PO DAILY calcium carbonate [Calcium 500] 500 mg calcium (1,250 mg) tablet 500 mg PO DAILY cholecalciferol (vitamin D3) [Dialyvite Vitamin D] 125 mcg (5,000 unit) capsule 125 mcg PO DAILY multivitamin Tablet 1 tab PO DAILY Referrals: Namrata Galindo DO [Primary Care Provider] - Stand Alone Forms: Patient Portal/API/Survey
[2024-09-22 14:21] LABS: Alanine Aminotransferase 46 IU/L (<35); Albumin 4.6 g/dL (3.5-5.0); Albumin Globulin Ratio 1.3 (1.0-2.8); Alkaline Phosphatase 100 U/L (38-126); Aspartate Aminotransferase 52 IU/L (14-36); BUN Creatinine Ratio 20.3 (6-22); Bilirubin Total 1.1 mg/dL (0.2-1.3); Blood Urea Nitrogen 16 mg/dL (7-17); Calcium 9.6 mg/dL (8.4-10.2); Carbon Dioxide 20 mmol/L (22-32); Chloride 105 mmol/L (98-107); Estimated Glomerular Filt Rate > 60 mL/min (>60); Globulin 3.6 g/dL (1.7-4.1); Glucose 105 mg/dL (80-110); HEMOLYSIS 49 (0-50); Lipase 64 U/L (23-300); Potassium 3.7 mmol/L (3.4-5.1); Sodium 141 mmol/L (137-145); Total Protein 8.2 g/dL (6.3-8.2)
[2024-09-22] MEDS: KETOROLAC 30 MG/ML VIAL IV (14:32)
[2024-09-22 14:33] LABS: Troponin I < 0.012 ng/mL (0.01-0.034)
[2024-09-22] MEDS: SODIUM CHLORIDE 0.9% 1,000 ML 1000 ML IV (14:33)
--- NOTE | 2024-09-22 15:58 | PC.NURSE ---
stated pt is okay to dc w/o covid/stool sample
[2024-09-22 16:21] LABS: Bacteria Urine None Seen; RBC Urine None Seen (0-5/HPF); Squamous Epithelial Cell Urine 0-1 /HPF (0-5/HPF); Urine Volume 10mL (spun); WBC Urine None Seen (0-5/HPF)
[2024-09-22 16:22] LABS: Calcium Oxalate Crystals Urine Many; Culture Indicated Urine Cult Not Indicated; Mucus Urine 1+ (Negative)
== END 2024-09-22 16:05 | disposition home or self-care (01) ==
PROVIDERS: Emergency Provider Family Medicine; PCP Family Medicine
DX: R10.84 Generalized abdominal pain (principal); R11.2 Nausea with vomiting, unspecified; R19.7 Diarrhea, unspecified
CPT/HCPCS: 36415; 74177; 80053; 81003; 81015; 83690; 84484; 85025; 93005; 96361; 96374; 96375; 99284; J1885; J2405; Q9967

== ENCOUNTER → 2024-10-03 10:41 | Outpatient (CLI) | payer MEDICARE, SELFPAY ==
--- NOTE | 2024-10-03 11:45 | DI.MRI.S_ITS ---
MR breast BI wo/w con: 10/03/2024. BI-RADS: 1 CLINICAL: 69-year old female for bilateral diagnostic breast MRI. High-Risk Screening MRI. Current reported family history of breast cancer: mother and maternal aunt. PRIOR EXAMS 02/18/2024, 09/01/2022, 08/18/2021, 08/12/2020, 07/11/2019, 10/17/2017, 07/28/2016, 02/13/2015. MRI TECHNIQUE Bilateral breast MRI was performed on a 1.5 Jane magnet using a dedicated breast coil with mild compression. Axial T1 and T2 STIR sequences were obtained. Dynamic contrast enhanced VIBRANT fat-suppressed sequences were obtained. Delayed sagittal high resolution or sagittal reconstructed isotropic sequence was also obtained. Subtraction images and maximum intensity projection images were obtained. The study was evaluated using eXenSa software. IV Contrast: 20 ml ProHance. FIBROGLANDULAR TISSUE Bilateral: C. Heterogeneous fibroglandular tissue. BACKGROUND PARENCHYMAL ENHANCEMENT Bilateral: Minimal symmetrical background parenchymal enhancement. BREAST FINDINGS Bilateral There are no abnormal axillary or internal mammary lymph nodes. No suspicious mass, suspicious non-mass enhancement, or other concerning finding identified. IMPRESSION: * No evidence of malignancy. RECOMMENDATIONS Bilateral * If the patient has an elevated lifetime risk for breast cancer of over 20%, recommend consideration for annual screening breast MRI as an adjunct to screening mammography. This is to be offset by approximately 6 months from patient's mammogram. * Annual screening mammography. COMMENTS: The imaging literature indicates that a negative contrast breast MRI examination has a high sensitivity and a moderate specificity for detecting and excluding invasive carcinomas to a detection threshold of 3-5 mm; nonetheless, appropriate clinical and mammographic follow-up are recommended. MRI is not sensitive for detecting DCIS (ductal carcinoma in situ) and may not detect large invasive neoplasms that show only minimal enhancement such as mucinous carcinoma. If there are suspicious calcifications or clinically worrisome palpable masses, then biopsy should still be considered. Invasive neoplasms can be hidden by co-existent and benign enhancement caused by mastitis, hormone therapy effects, radiation therapy, , and recent biopsy or surgery. False positive examinations can occur in a number of circumstances, including breasts that have recently been subject to invasive procedures and those that contain atypical ductal hyperplasia, hormonally stimulated glandular tissue, fat necrosis, or radial scars. OVERALL ASSESSMENT CATEGORY BI-RADS-1: Negative. ELECTRONICALLY SIGNED: Clementina Green M.D. on 10/03/2024 at 11:54:48 AM PT Interpreting Station ID: [id number]
== END ==
LOC: MRI 10:42
PROVIDERS: PCP Family Medicine; Referring Provider Family Medicine; Visit Provider Family Medicine
DX: R92.1 Mammographic calcification found on diagnostic imaging of breast (principal); R92.30 Dense breasts, unspecified; Z80.3 Family history of malignant neoplasm of breast
CPT/HCPCS: 77049; A9579

== ENCOUNTER → 2025-03-16 11:11 | Outpatient (CLI) | payer MEDICARE, SELFPAY ==
--- NOTE | 2025-03-16 11:13 | DI.MG.S_ITS ---
MM screening mammo BI: 03/16/2025. BI-RADS: 2 CLINICAL: 69-year old female for bilateral screening mammogram. Tyrer-Cuzick lifetime risk of 29.9%. Current reported family history of breast cancer: mother and maternal aunt. The patient had a prior right breast biopsy. PRIOR EXAMS 02/18/2024, 09/01/2022, 08/18/2021, 08/12/2020. MAMMOGRAPHY TECHNIQUE: 2D and 3D (tomosynthesis) digital mammographic views obtained, with additional images as needed for full coverage. Current study was also evaluated with a Computer Aided Detection (CAD) system. DENSITY D. The breasts are extremely dense, which lowers the sensitivity of mammography. MAMMOGRAPHY FINDINGS Right: Benign-appearing post-surgical changes noted on the right. There are no suspicious masses, calcifications, or other findings in the breast. Left: No suspicious mass, asymmetry, microcalcification, or other abnormality seen. IMPRESSION: Right * No evidence of malignancy with benign findings. Left * No evidence of malignancy. RECOMMENDATIONS Bilateral * According to the Tyrer-Cuzick Risk Assessment Model, based on the information provided your patient has a greater than 20% lifetime risk for developing breast cancer. Consider supplemental screening with breast MRI and participation in a high risk screening program. * Annual screening mammography. OVERALL ASSESSMENT CATEGORY BI-RADS-2: Benign. The [employer] [employer] recommends annual screening mammography beginning at age 40 for women with average risk of breast cancer. ELECTRONICALLY SIGNED: Catina Carvalho M.D. on 03/18/2025 at 10:05:49 AM PT Interpreting Station ID: [id number]
--- NOTE | 2025-03-16 11:13 | DI.CT.S_ITS ---
PROCEDURE: CT CHEST WO CON INDICATIONS: Follow Up lung nodule TECHNIQUE: Noncontrast 2.0-2.5 mm thick sections acquired from the pulmonary apices to the posterior costophrenic angles. 7 mm thick axial MIP and 5 mm coronal and sagittal reformats were then acquired. For radiation dose reduction, the following was used: automated exposure control, adjustment of mA and/or kV according to patient size. COMPARISON: [facility], CT, CT CHEST WO CON, 03/02/2024, 12:13. FINDINGS: Image quality: Diagnostic. Lower Neck: No enlarged lymph nodes. Thyroid: No thyroid nodules which require sonographic follow up, per consensus guidelines. Axillae: No enlarged lymph nodes. Chest Wall: Unremarkable. Bones: No lesions. Osteoarthritic changes again noted involving right 1st costal sternal junction with prominent marginal osteophyte formation unchanged from prior study. Lungs and Pleura: No pneumothorax or pleural effusions. No consolidation. Previously noted 3-4 mm solid nodule in left lower lobe remains unchanged series 3, image 155. No suspicious pulmonary nodules are seen. Heart: Heart size is normal. No pericardial effusion. Thoracic Vessels: The aorta and pulmonary arteries demonstrate normal size. Mediastinum and Lisandra: No enlarged lymph nodes. Esophagus: No wall thickening. No significant in hiatal hernia. Upper Abdomen: Visualized upper abdomen solid organs and bowel loops appear normal. IMPRESSION: 1. Stable 3-4 mm left lower lobe nodule suggestive of benign process. Additional 12 month follow-up can be done if clinically indicated. No new suspicious pulmonary nodules. 2. Other findings are unchanged from prior study. Fleischner Society criteria for SOLID lung nodule followup. Nodule size (mm)Low-risk patientHigh-risk patient<6 (single or multiple)No routine followup.Optional CT at 12 months. 6-8 (single or multiple)CT at 6-12 months, then optional CT at 18-24 mo.CT at 6-12 months, then CT at 18-24 months. >8 (single)CT at 3 months, PET-CT, or biopsy. Same as for low-risk pts. >8 (multiple)CT at 3-6 months, then optional CT at 18-24 mo.CT at 3-6 months, then CT at 18-24 months. Fleischner Society criteria for SUB-SOLID lung nodule followup. Solitary pure ground-glass nodules<6 mm (ground glass or part solid)No followup needed. 6 mm or larger (ground glass)CT at 6-12 months to confirm persistence, then CT every 2 years until 5 years.6 mm or larger (part solid)CT at 3-6 months to confirm persistence, then annual CT until 5 years if unchanged and solid component remains <6 mm. Multiple sub-solid nodules<6 mmCT at 3-6 months, then CT consider at 2 & 4 years for high risk patients. [address] at 3-6 months. Subsequent management based on most suspicious lesions. Recommendations do not apply to lung cancer screening, patients with immunosuppression, or patients with known primary cancer. Dictated by: Donaldo Fletcher M.D. on 03/17/2025 at 9:07 Approved by: Donaldo Fletcher M.D. on 03/17/2025 at 9:09
== END ==
LOC: MAMMO 11:12
PROVIDERS: PCP Family Medicine; Referring Provider Family Medicine; Visit Provider Family Medicine
DX: Z12.31 Encounter for screening mammogram for malignant neoplasm of breast (principal); Z80.3 Family history of malignant neoplasm of breast; R92.343 Mammographic extreme density, bilateral breasts; I65.21 Occlusion and stenosis of right carotid artery; R91.1 Solitary pulmonary nodule
CPT/HCPCS: 71250; 77063; 77067

== ENCOUNTER → 2025-04-04 16:57 | Outpatient (CLI) | payer MEDICARE, SELFPAY | PROVIDERS: PCP Family Medicine; Visit Provider Chiropractor | DX: R39.15 Urgency of urination (principal) | CPT/HCPCS: 87086 ==

== ENCOUNTER → 2025-04-30 08:44 | Outpatient (CLI) | payer MEDICARE, SELFPAY ==
[2025-04-30 09:48] LABS: Add Manual Diff / Slide Review NO; Hematocrit 38.4 % (36-46); Hemoglobin 13.1 g/dL (12.0-16.0); Lymphocytes Absolute Auto 1000 /uL (1100-4500); Mean Corpuscular HGB Conc 34.1 % (30-36); Mean Corpuscular Hemoglobin 27.4 PG (26-34); Mean Corpuscular Volume 80.4 fL (80-100); Platelet Count 297 X10^3/uL (150-400)
[2025-04-30 10:11] LABS: HEMOLYSIS < 15 (0-50); Iron 64 ug/dL (37-170)
[2025-04-30 10:18] LABS: Alanine Aminotransferase 31 IU/L (<35); Albumin 4.6 g/dL (3.5-5.0); Albumin Globulin Ratio 1.6 (1.0-2.8); Alkaline Phosphatase 108 U/L (38-126); Blood Urea Nitrogen 17 mg/dL (7-17); Calcium 9.5 mg/dL (8.4-10.2); Carbon Dioxide 25 mmol/L (22-32); Chloride 105 mmol/L (98-107); Estimated Glomerular Filt Rate > 60 mL/min (>60); Globulin 2.8 g/dL (1.7-4.1); Glucose 92 mg/dL (70-99); HEMOLYSIS < 15 (0-50); Potassium 4.4 mmol/L (3.4-5.1); Sodium 142 mmol/L (137-145); Total Protein 7.4 g/dL (6.3-8.2)
[2025-04-30 10:21] LABS: Percent Iron Saturation 19 % (15-50); Total Iron Binding Capacity 342 ug/dL (265-497); Transferrin 297 mg/dL (206-381)
[2025-04-30 10:43] LABS: Cortisol AM (Before 10AM) 9.53 ug/dL (4.46-22.7)
[2025-04-30 10:47] LABS: Ferritin 68 ng/mL (11-264)
== END ==
PROVIDERS: PCP Family Medicine; Referring Provider Family Medicine; Visit Provider Family Medicine
DX: R79.89 Other specified abnormal findings of blood chemistry (principal); F41.9 Anxiety disorder, unspecified; F32.A Depression, unspecified; E78.5 Hyperlipidemia, unspecified; R74.8 Abnormal levels of other serum enzymes; R91.8 Other nonspecific abnormal finding of lung field
CPT/HCPCS: 36415; 80053; 82024; 82533; 82728; 83540; 83550; 85025

== ENCOUNTER → 2025-05-08 13:44 | Outpatient (CLI) | payer MEDICARE, SELFPAY ==
--- NOTE | 2025-05-08 13:44 | DI.RAD.S_ITS ---
PROCEDURE: XR DEXA AXIAL SKELETON INDICATIONS: Osteoporosis COMPARISON: [facility], CR, XR DEXA AXIAL SKELETON, 11/16/2022, 15:38. FINDINGS: Lumbar Spine: Bone mineral density is 0.790 g/cm2, T score -2.3, osteopenia, change from previous 0.1%. Left Femoral Neck: Bone mineral density 0.568 g/cm2, T score -2.5, osteoporosis, change from previous 2.8%. Left Hip: Bone mineral density 0.709 g/cm2, T score -1.9, osteopenia, change from previous 1.9%. Fracture Risk Calculation (when applicable): 10-year fracture risk of a major osteoporotic fracture 14 percent and of a hip fracture 3.5 percent. FRAX score is technically not valid due to presence of osteoporosis. (T score greater or equal to -1.0 to: NORMAL) (T score from -1.1 to -2.4: OSTEOPENIA) (T score less than or equal to -2.5: OSTEOPOROSIS) IMPRESSION: Osteoporosis. The patient is at a high risk of fracture. The femoral neck is osteoporotic, similar compared to prior, with mild improvement in bone mineral density. Follow-up guidelines as follows: Osteoporosis: Consider a repeat DEXA and Vertebral Fracture Assessment (VFA) exam in 2 years or sooner if medically necessary, to reassess this patient's status. Osteopenia: Consider a repeat DEXA in 2-3 years to reassess this patient's status, or if there is a new clinical indication. Normal: Consider a repeat DEXA in 5 years or sooner, or if there is a new clinical indication. All treatment decisions require clinical judgment and consideration of individual patient factors, including patient preferences, comorbidities, previous drug use, risk factors not captured in the FRAX model (e.g., frailty, falls, vitamin D deficiency, increased bone turnover, interval significant decline in bone density ) and possible under- or over-estimation of fracture risk by FRAX. In addition, the NOF Guide recommends that FDA-approved medical therapies be considered in postmenopausal women and men age >= 50 years with a: * Hip or vertebral (clinical or morphometric) fracture * T-score of <=-2.5 at the spine or hip * Ten-year fracture probability by FRAX of >= 3% for hip fracture or >=20% for major osteoporotic fracture. Dictated by: Marley Schuler M.D. on 05/10/2025 at 22:40 Approved by: Marley Schuler M.D. on 05/10/2025 at 22:42
== END ==
LOC: RAD 13:44
PROVIDERS: PCP Family Medicine; Referring Provider Family Medicine; Visit Provider Family Medicine
DX: M81.0 Age-related osteoporosis without current pathological fracture (principal); M85.89 Other specified disorders of bone density and structure, multiple sites
CPT/HCPCS: 77080